=== PATIENT | male | born 1955 | race Caucasian/White ===

== ENCOUNTER 2020-07-27 12:18 | Outpatient (CLI) | payer BC, OTHER | END 2020-07-27 12:19 | disposition home or self-care (01) | LOC: COV 12:18 | PROVIDERS: ATTEND Family Medicine | DX: R05 Cough (principal); J02.9 Acute pharyngitis, unspecified; R19.7 Diarrhea, unspecified; Z20.828 Contact with and (suspected) exposure to other viral communicable diseases ==

== ENCOUNTER 2020-12-04 16:01 | Emergency (ER) | payer BC ==
[2020-12-04 17:55] LABS: BILIRUBIN,URINE NEGATIVE (NEGATIVE); GLUCOSE, URINE (UA) NEGATIVE (NEGATIVE); KETONES,URINE (UA) NEGATIVE (NEGATIVE); LEUKOCYTE ESTERASE, URINE NEGATIVE (NEGATIVE); NITRITE,URINE NEGATIVE (NEGATIVE); OCCULT BLOOD,URINE NEGATIVE (NEGATIVE); PROTEIN,URINE NEGATIVE (NEGATIVE); UROBILINOGEN,URINE 0.2 (NORMAL) E.U./dL (NORMAL)
[2020-12-04 18:03] LABS: CLARITY,URINE CLEAR (CLEAR)
[2020-12-04 18:21] LABS: BASOPHILS % (AUTO) 0.8 %; EOSINOPHILS % (AUTO) 0.2 %; HCT - HEMATOCRIT 42.6 % (42.0-52.0); HGB - HEMOGLOBIN 15.7 g/dL (14.0-18.0); LYMPHOCYTES # (AUTO) 1.6 10^3/uL (1.5-3.5); MEAN CORPUSCULAR HEMOGLOBIN 31.7 pg (27.0-31.0); MEAN CORPUSCULAR HGB CONC 36.9 g/dL (32.0-36.0); MEAN CORPUSCULAR VOLUME 85.9 fL (80.0-94.0); MEAN PLATELET VOLUME 8.5 fL (7.4-11.4); MONOCYTES # (AUTO) 0.6 10^3/uL (0.0-1.0); MONOCYTES % (AUTO) 12.2 %; NEUTROPHILS # (AUTO) 2.7 10^3/uL (1.5-6.6); PLT - PLATELET COUNT 168 10^3/uL (130-450); RED BLOOD COUNT 4.96 10^6/uL (4.70-6.10); RED CELL DISTRIBUTION WIDTH 12.9 % (12.0-15.0); WHITE BLOOD COUNT 4.9 x10^3/uL (4.8-10.8)
[2020-12-04] MEDS ORDERED: SODIUM CHLORIDE 0.9% 1,000 ML IV STA (18:30)
[2020-12-04] MEDS ORDERED: ONDANSETRON 4 MG/2 ML VIAL IVP STA (18:30)
[2020-12-04] MEDS ORDERED: chlordiazePOXIDE 25 MG CAPSULE PO STA ×2 (18:30→19:48)
[2020-12-04 18:37] LABS: ALBUMIN 3.3 g/dL (3.2-5.5); ALBUMIN/GLOBULIN RATIO 0.8 (1.0-2.2); BILIRUBIN,TOTAL 2.3 mg/dL (0.2-1.0); CALCIUM 8.5 mg/dL (8.5-10.3); CREATININE 0.7 mg/dL (0.6-1.2); POTASSIUM 3.9 mmol/L (3.5-5.0); TOTAL PROTEIN 7.2 g/dL (6.7-8.2)
--- NOTE | 2020-12-04 19:55 | ED Physician Documentation ---
History of Present Illness - Stated complaint Stated Complaint: NAUSEA, DIZZY, ALCOHOL - Chief complaint Chief Complaint: Abd Pain - History obtained from History obtained from: Patient, Family - Additonal information Additional information: Patient comes emergency department chief complaint of "I've been drinking too much". Patient states that he has a longstanding history of alcohol abuse on and off and knows he has some liver disease because of it. The patient states that he actually was able to remain dry throughout the entire month of July, but then began to drink again in August. In early October, he bought a new boat, which required quite a bit of repair to make it see where they, and patient states that he began to feel overwhelmed and stressed out because of this. He states that is when his drinking got to be quite heavy. The patient states that he has been drinking approximately 8-10 large beers in a 24-hour period on a daily basis since then. He states that he has had nausea, vomiting, and tremors for approximately last month. Last week, he decided that he ought to quit drinking, and went and was seen but at [facility] about 4 days ago. He was given prescription for Zofran and a Librium taper, but was not able to get the Librium filled. He states that he should have tried another pharmacy, as the pharmacy he gone to said they did not have the Librium in stock, but instead, he just got more beer drinking. Patient states that today, he just decided that he needed to get help. He states he thinks that he could be successful getting off alcohol again if he could have some assistance with Librium, but has also contemplated going to inpatient detox. Patient states he does have another appointment at 11:00 tomorrow with [facility]. Patient denies using any other substances. He has not been vomiting today, though he does feel nauseated. No fevers or chills. No other complaints at this time. Review of Systems Ten Systems: 10 systems reviewed and negative Constitutional: reports: Reviewed and negative Eyes: reports: Reviewed and negative Ears: reports: Reviewed and negative Nose: reports: Reviewed and negative Throat: reports: Reviewed and negative Cardiac: reports: Reviewed and negative Respiratory: reports: Reviewed and negative GI: reports: Nausea, Vomiting : reports: Reviewed and negative Skin: reports: Reviewed and negative Musculoskeletal: reports: Reviewed and negative Neurologic: reports: Other (Tremulous) Psychiatric: reports: Reviewed and negative Endocrine: reports: Reviewed and negative Immunocompromised: reports: Reviewed and negative PD PAST MEDICAL HISTORY - Past Medical History Past Medical History: Yes Endocrine/Autoimmune: Type 2 diabetes Other Past Medical History: Proctits - Past Surgical History Past Surgical History: No - Present Medications Home Medications: Ambulatory Orders Medication Instructions Recorded Confirmed Atenolol [Tenormin] 50 mg PO DAILY 12/04/20 12/04/20 Atorvastatin [Lipitor] 20 mg PO DAILY 12/04/20 12/04/20 Budesonide [Entocort EC] 3 mg PO DAILY 12/04/20 12/04/20 Colchicine 0.6 mg PO PRN PRN 12/04/20 12/04/20 Lisinopril/Hydrochlorothiazide 1 tab PO DAILY 12/04/20 12/04/20 [Zestoretic 20-12.5 mg Tablet] Mesalamine [Lialda] 1.2 gm PO DAILY 12/04/20 12/04/20 Omeprazole 20 mg PO BID 12/04/20 12/04/20 Ondansetron Odt [Zofran Odt] 4 mg PO PRN PRN 12/04/20 12/04/20 allopurinoL [Zyloprim] 100 mg PO DAILY 12/04/20 12/04/20 - Allergies Allergies/Adverse Reactions: Allergies Allergy/AdvReac Type Severity Reaction Status Date / Time No Known Drug Allergies Allergy Verified 12/04/20 16:10 - Social History Does the pt smoke?: No Smoking Status: Never smoker Does the pt drink ETOH?: Yes ETOH Use: Beer Does the pt have substance abuse?: Yes Substance Use and Type: Marijuana - Immunizations Immunizations are current?: Yes - POLST Patient has POLST: No PD ED PE NORMAL - Vitals Vital signs reviewed: Yes - General General: Alert and oriented X 3, No acute distress, Well developed/nourished - HEENT HEENT: Atraumatic, PERRL, EOMI, Moist mucous membranes - Neck Neck: Supple, no meningeal sign - Cardiac Cardiac: RRR, No murmur, Strong equal pulses - Respiratory Respiratory: No respiratory distress, Clear bilaterally - Abdomen Abdomen: Soft, Non tender, Non distended - Derm Derm: Normal color, Warm and dry, No rash - Extremities Extremities: No deformity, No edema - Neuro Neuro: Alert and oriented X 3, chief controller center 2-12 intact, No motor deficit, No sensory deficit, Normal speech, Other (No gross tremors) - Psych Psych: Normal mood, Normal affect Results - Vitals Vitals: Vital Signs - 24 hr 12/04/20 12/04/20 12/04/20 16:10 18:31 20:04 Temperature 36.5 C 36.6 C Heart Rate 77 73 73 Respiratory 16 16 12 Rate Blood Pressure 132/73 H 138/82 H 145/78 H O2 Saturation 99 99 97 Oxygen O2 Source Room air - Labs Labs: Laboratory Tests 12/04/20 12/04/20 12/04/20 17:41 18:13 18:13 WBC 4.9 RBC 4.96 Hgb 15.7 Hct 42.6 MCV 85.9 MCH 31.7 H MCHC 36.9 H RDW 12.9 Plt Count 168 MPV 8.5 Neut # (Auto) 2.7 Lymph # (Auto) 1.6 [place] # (Auto) 0.6 Eos # (Auto) 0.0 Baso # (Auto) 0.0 Absolute Nucleated RBC 0.00 Nucleated RBC % 0.0 Sodium 127 L Potassium 3.9 Chloride 91 L Carbon Dioxide 25 Anion Gap 11.0 BUN 17 Creatinine 0.7 Estimated GFR (MDRD) 114 Glucose 145 H Calcium 8.5 Total Bilirubin 2.3 H AST 300 H ALT 84 H Alkaline Phosphatase 154 H Total Protein 7.2 Albumin 3.3 Globulin 3.9 Albumin/Globulin Ratio 0.8 L Lipase 86 H Urine Color YELLOW Urine Clarity CLEAR Urine pH 6.0 Ur Specific [place] 1.010 Urine Protein NEGATIVE Urine Glucose (UA) NEGATIVE Urine Ketones NEGATIVE Urine Occult Blood NEGATIVE Urine Nitrite NEGATIVE Urine Bilirubin NEGATIVE Urine Urobilinogen 0.2 (NORMAL) Ur Leukocyte Esterase NEGATIVE Ur Microscopic Review NOT INDICATED Urine Culture Comments NOT INDICATED PD MEDICAL DECISION MAKING - ED course Complexity details: reviewed results, re-evaluated patient, considered differential, d/w patient, d/w family ED course: The patient was worked up with laboratory studies which did show some brown elevations in the patient's LFTs. He was treated symptomatically with IV fluids, Zofran, and Librium. The patient was clinically sober and did not appear to be in severe withdrawal. His vital signs were stable and he was amiable and well-appearing and in good spirits. I discussed with him that as it is evening, we do not have health social work professor here to arrange for detox for the patient. If he does not feel safe to go home, and then he could stay in the emergency department until morning when health social work professor can see him. Alternatively, the patient can take another dose of Librium at home, and he can plan to keep his appointment with [facility] tomorrow and get his Librium prescription filled at one of the [facility] pharmacies that does carry Librium. If he is feeling bad enough that he still wants to come to inpatient.detox, he can represent to the emergency department to talk to social work about going to detox. Patient's daughter is with him here in the ED and they are both agree able to the plan of going home with Librium. We have discussed the usual indications for return. Departure - Departure Disposition: 01 Home, Self Care Clinical Impression: Alcohol abuse Alcohol withdrawal Qualifiers: Complication of substance-induced condition: uncomplicated Qualified Code(s): F10.230 - Alcohol dependence with withdrawal, uncomplicated Condition: Stable Instructions: ED Withdrawal Alcohol Comments: Please take the dose of Librium between 1 and 3 AM, if you are awake. You may continue the Zofran for nausea, as well. Do not set an alarm to wake yourself up to take the Librium, in the event that you are asleepit is best that you just get your sleep and you can take the next dose of Librium when you wake up in the morning. Please take your prescription to [facility] to get it filled, so that you may continue with the Librium taper. Please also keep your 11:00 appointment with [facility]. If you feel that the plan for outpatient detox is not going to work, you may return to the emergency department to see social work and discuss inpatient treatment. Please do keep in mind that our social workers are here during daytime hours and generally are finished around 6:00 in the evening, so if possible, please come early enough to allow enough time to be evaluated and placed. Discharge Date/Time: 12/04/20 20:14
[2020-12-04 20:05] VITALS: BP 145/78
== END 2020-12-04 20:14 | disposition home or self-care (01) ==
LOC: ED 16:01
DX: F10.230 Alcohol dependence with withdrawal, uncomplicated (principal); E11.9 Type 2 diabetes mellitus without complications
CPT/HCPCS: 36415; 80053; 81003; 83690; 85025; 96374; 99283; A9270; 81001; 87086

== ENCOUNTER 2021-07-21 19:12 | Inpatient (IN) | payer MEDICARE, OTHER ==
[2021-07-21] MEDS ORDERED: LORazepam 2 MG/ML VIAL IVP STA ×2 (19:50→21:42)
[2021-07-21] MEDS ORDERED: SODIUM CHLORIDE 0.9% 1,000 ML IV STA (19:50)
--- NOTE | 2021-07-21 19:51 | ED Physician Documentation ---
PD HPI ABD PAIN - Stated complaint Stated Complaint: ETOH DETOX - Chief complaint Chief Complaint: Abd Pain - History obtained from History obtained from: Patient - Additional information Additional information: 66-year-old gentleman with history of alcoholism was doing pretty well from the perspective of alcohol recovery after doing an outpatient treatment program until about 5 weeks ago when he started drinking heavily again. He is trying to cut back over the last few days and plans to go to detox, but presents with shakiness and some visual hallucinations. No history of seizures. Review of Systems Ten Systems: 10 systems reviewed and negative Constitutional: reports: Reviewed and negative Eyes: reports: Reviewed and negative Ears: reports: Reviewed and negative Nose: reports: Reviewed and negative PD PAST MEDICAL HISTORY - Past Medical History Endocrine/Autoimmune: Type 2 diabetes - Past Surgical History Past Surgical History: No - Present Medications Home Medications: Ambulatory Orders Medication Instructions Recorded Confirmed Atenolol [Tenormin] 50 mg PO DAILY 12/04/20 12/04/20 Atorvastatin [Lipitor] 20 mg PO DAILY 12/04/20 12/04/20 Budesonide [Entocort EC] 3 mg PO DAILY 12/04/20 12/04/20 Colchicine 0.6 mg PO PRN PRN 12/04/20 12/04/20 Lisinopril/Hydrochlorothiazide 1 tab PO DAILY 12/04/20 12/04/20 [Zestoretic 20-12.5 mg Tablet] Mesalamine [Lialda] 1.2 gm PO DAILY 12/04/20 12/04/20 Omeprazole 20 mg PO BID 12/04/20 12/04/20 Ondansetron Odt [Zofran Odt] 4 mg PO PRN PRN 12/04/20 12/04/20 allopurinoL [Zyloprim] 100 mg PO DAILY 12/04/20 12/04/20 - Allergies Allergies/Adverse Reactions: Allergies Allergy/AdvReac Type Severity Reaction Status Date / Time No Known Drug Allergies Allergy Verified 07/21/21 19:38 - Social History Does the pt smoke?: No Smoking Status: Never smoker Does the pt drink ETOH?: Yes Does the pt have substance abuse?: Yes - Immunizations Immunizations are current?: Yes - POLST Patient has POLST: No PD ED PE NORMAL - Vitals Vital signs reviewed: Yes - General General: Alert and oriented X 3 (He is visibly shaky, hypertensive, and has some scleral icterus.), No acute distress - HEENT HEENT: PERRL, EOMI - Neck Neck: Supple, no meningeal sign, No bony TTP - Cardiac Cardiac: RRR, No murmur - Respiratory Respiratory: No respiratory distress, Clear bilaterally - Abdomen Abdomen: Soft, Non tender - Back Back: No CVA TTP, No spinal TTP - Derm Derm: Normal color, Warm and dry - Extremities Extremities: No edema, No calf tenderness / cord - Neuro Neuro: Alert and oriented X 3, Normal speech Results - Vitals Vitals: Vital Signs - 24 hr 07/21/21 07/21/21 07/21/21 19:30 20:30 21:00 Temperature 36.3 C L Heart Rate 87 91 91 Respiratory 28 H 28 H 26 H Rate Blood Pressure 150/70 H 146/76 H 158/89 H O2 Saturation 100 97 99 Oxygen O2 Source Room air - Labs Labs: Laboratory Tests 07/21/21 07/21/21 07/21/21 20:05 20:05 20:05 WBC 16.8 H RBC 4.79 Hgb 15.4 Hct 38.9 L MCV 81.2 MCH 32.2 H MCHC 39.6 H RDW 11.4 L Plt Count 137 MPV 8.9 Neut # (Auto) Not Reportable Lymph # (Auto) Not Reportable [place] # (Auto) Not Reportable Eos # (Auto) Not Reportable Baso # (Auto) Not Reportable Absolute Nucleated RBC Not Reportable Total Counted 100 Band Neuts % (Manual) 0 Abnorm Lymph % (Manual) 0 Nucleated RBC % Not Reportable Neutrophils # (Manual) 16.1 H Lymphocytes # (Manual) 0.5 L Monocytes # (Manual) 0.2 Eosinophils # (Manual) 0.0 Basophils # (Manual) 0.0 Differential Comment MANUAL DIFFERENTIAL Platelet Estimate NORMAL (130-450,000) Platelet Morphology NORMAL APPEARANCE RBC Morph Micro Appear NORMAL APPEARANCE PT 12.7 H INR 1.1 Sodium 106 L* Potassium 3.2 L Chloride 67 L* Carbon Dioxide 18 L Anion Gap 21.0 H BUN 12 Creatinine 0.6 Estimated GFR (MDRD) 135 Glucose 162 H Calcium 8.3 L Magnesium 1.6 L Total Bilirubin 4.1 H AST 320 H ALT 81 H Alkaline Phosphatase 141 H Total Protein 6.9 Albumin 3.6 Globulin 3.3 Albumin/Globulin Ratio 1.1 Lipase 600 H Nasal Adenovirus (PCR) Nasal B. parapertussis DNA (PCR) Nasal Coronavir 229E PCR Nasal Coronavir HKU1 PCR Nasal Coronavir NL63 PCR Nasal Coronavir OC43 PCR Nasal Enterovir/Rhinovir PCR Nasal Influenza B PCR Nasal Influenza A PCR Nasal Parainfluen 1 PCR Nasal Parainfluen 2 PCR Nasal Parainfluen 3 PCR Nasal Parainfluen 4 PCR Nasal RSV (PCR) Nasal B.pertussis DNA PCR Nasal C.pneumoniae (PCR) [place]aleb Human Metapneumo PCR Nasal M.pneumoniae (PCR) Nasal SARS-CoV-2 (PCR) Ethyl Alcohol 142.2 07/21/21 20:14 WBC RBC Hgb Hct MCV MCH MCHC RDW Plt Count MPV Neut # (Auto) Lymph # (Auto) [place] # (Auto) Eos # (Auto) Baso # (Auto) Absolute Nucleated RBC Total Counted Band Neuts % (Manual) Abnorm Lymph % (Manual) Nucleated RBC % Neutrophils # (Manual) Lymphocytes # (Manual) Monocytes # (Manual) Eosinophils # (Manual) Basophils # (Manual) Differential Comment Platelet Estimate Platelet Morphology RBC Morph Micro Appear PT INR Sodium Potassium Chloride Carbon Dioxide Anion Gap BUN Creatinine Estimated GFR (MDRD) Glucose Calcium Magnesium Total Bilirubin AST ALT Alkaline Phosphatase Total Protein Albumin Globulin Albumin/Globulin Ratio Lipase Nasal Adenovirus (PCR) NOT DETECTED Nasal B. parapertussis DNA (PCR) NOT DETECTED Nasal Coronavir 229E PCR NOT DETECTED Nasal Coronavir HKU1 PCR NOT DETECTED Nasal Coronavir NL63 PCR NOT DETECTED Nasal Coronavir OC43 PCR NOT DETECTED Nasal Enterovir/Rhinovir PCR NOT DETECTED Nasal Influenza B PCR NOT DETECTED Nasal Influenza A PCR NOT DETECTED Nasal Parainfluen 1 PCR NOT DETECTED Nasal Parainfluen 2 PCR NOT DETECTED Nasal Parainfluen 3 PCR NOT DETECTED Nasal Parainfluen 4 PCR NOT DETECTED Nasal RSV (PCR) NOT DETECTED Nasal B.pertussis DNA PCR NOT DETECTED Nasal C.pneumoniae (PCR) NOT DETECTED [place] Human Metapneumo PCR NOT DETECTED Nasal M.pneumoniae (PCR) NOT DETECTED Nasal SARS-CoV-2 (PCR) NOT DETECTED Ethyl Alcohol PD MEDICAL DECISION MAKING - ED course ED course: 66-year-old gentleman presents requesting clearance exam for alcohol detox and he appears to be in at least moderate alcohol withdrawal. Work-up in the emergency department demonstrates profound hyponatremia, moderate elevation of liver enzymes. He was treated with IV fluids and because of the profound hyponatremia also got a small dose of hypertonic saline. Given the profundity of his labs spoke with Dr. Ferro for admission at 9:45 PM for ICU admit. I also was able to update his family by phone. 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 Meld-NA 23 points giving him an estimated 15% short-term mortality 4.1 points Discriminant factor 4.1 points so not needing corticosteroid therapy for alcoholic hepatitis. - Critical Care Time(min): 45 Time Includes: Direct patient care, Review records, Reassess patient, Document care, Coordinate care, Medical consult, Family consult for tx dec Data interpretation: Labs, Pulse ox Procedures included in critical care time: Peripheral IV Departure - Departure Disposition: 66 [facility] DC/Xfer Clinical Impression: Hyponatremia Alcohol intoxication Qualifiers: Complication of substance-induced condition: uncomplicated Qualified Code(s): F10.920 - Alcohol use, unspecified with intoxication, uncomplicated Alcohol withdrawal Qualifiers: Complication of substance-induced condition: with delirium Qualified Code(s): F10.231 - Alcohol dependence with withdrawal delirium Pancreatitis Qualifiers: Chronicity: acute Pancreatitis type: alcohol induced Acute pancreatitis complication: unspecified Qualified Code(s): K85.20 - Alcohol induced acute pancreatitis without necrosis or infection Alcoholic hepatitis Qualifiers: Ascites presence: without ascites Qualified Code(s): K70.10 - Alcoholic hepatitis without ascites
[2021-07-21 20:18] LABS: INR 1.1 (0.8-1.2); PT - PROTHROMBIN TIME 12.7 secs (9.9-12.6)
[2021-07-21 20:49] LABS: ALBUMIN 3.6 g/dL (3.2-5.5); ALBUMIN/GLOBULIN RATIO 1.1 (1.0-2.2); BILIRUBIN,TOTAL 4.1 mg/dL (0.2-1.0); CALCIUM 8.3 mg/dL (8.5-10.3); CREATININE 0.6 mg/dL (0.6-1.2); ETOH - ETHANOL 142.2 mg/dL; MAGNESIUM 1.6 mg/dL (1.7-2.8); POTASSIUM 3.2 mmol/L (3.5-5.0); TOTAL PROTEIN 6.9 g/dL (6.7-8.2)
[2021-07-21] MEDS ORDERED: SODIUM CHLORIDE 3% HYPERTONIC 500 ML IV SCH (21:00)
[2021-07-21 21:07] LABS: BASOPHILS % (AUTO) 0.2 %; HCT - HEMATOCRIT 38.9 % (42.0-52.0); HGB - HEMOGLOBIN 15.4 g/dL (14.0-18.0); LYMPHOCYTES % (AUTO) 2.9 %; MEAN CORPUSCULAR HEMOGLOBIN 32.2 pg (27.0-31.0); MEAN CORPUSCULAR HGB CONC 39.6 g/dL (32.0-36.0); MEAN CORPUSCULAR VOLUME 81.2 fL (80.0-94.0); MEAN PLATELET VOLUME 8.9 fL (7.4-11.4); MONOCYTES % (AUTO) 7.2 %; NEUTROPHILS % (AUTO) 88.9 %; PLT - PLATELET COUNT 137 10^3/uL (130-450); RED BLOOD COUNT 4.79 10^6/uL (4.70-6.10); RED CELL DISTRIBUTION WIDTH 11.4 % (12.0-15.0); WHITE BLOOD COUNT 16.8 x10^3/uL (4.8-10.8)
[2021-07-21 21:23] LABS: PLATELET ESTIMATE, MANUAL NORMAL (130-450,000) (NORMAL); PLATELET MORPHOLOGY NORMAL APPEARANCE (NORMAL); RBC MORPHOLOGY (MULTIPLE) NORMAL APPEARANCE (NORMAL)
[2021-07-21 21:24] LABS: ABNORMAL LYMPHS % (MANUAL) 0 %; BAND NEUTROPHILS % (MANUAL) 0 %
[2021-07-21 21:25] LABS: DIFFERENTIAL COMMENT MANUAL DIFFERENTIAL; LYMPHOCYTES # (MANUAL) 0.5 10^3/uL (1.5-3.5); LYMPHOCYTES % (MANUAL) 3 %; MONOCYTES # (MANUAL) 0.2 10^3/uL (0.0-1.0); NEUTROPHILS # (MANUAL) 16.1 10^3/uL (1.5-6.6)
[2021-07-21 21:28] LABS: B. PARAPERTUSSIS- RESP PCR PAN NOT DETECTED; B. PERTUSSIS- RESP PCR PANEL NOT DETECTED; C. PNEUMONIAE- RESP PCR PANEL NOT DETECTED; CORONAVIRUS 229E-RESP PCR NOT DETECTED; CORONAVIRUS HKU1-RESP PCR NOT DETECTED; CORONAVIRUS NL63-RESP PCR NOT DETECTED; CORONAVIRUS OC43-RESP PCR NOT DETECTED; HUMAN METAPNEUMOVIRUS NOT DETECTED; INFLUENZA A- RESP PCR PANEL NOT DETECTED; INFLUENZA B - RESP PCR PANEL NOT DETECTED; M. PNEUMONIAE- RESP PCR PANEL NOT DETECTED; PARAINFLUENZA VIRUS 1 NOT DETECTED; PARAINFLUENZA VIRUS 2 NOT DETECTED; PARAINFLUENZA VIRUS 3 NOT DETECTED; PARAINFLUENZA VIRUS 4 NOT DETECTED; RHINOVIRUS/ENTEROVIRUS NOT DETECTED; RSV- RESP PCR PANEL NOT DETECTED; SARS-CoV-2 -RESP PCR PANEL NOT DETECTED
[2021-07-21] MEDS ORDERED: ONDANSETRON 4 MG/2 ML VIAL IVP PRN (21:58)
[2021-07-21] MEDS ORDERED: CALCIUM CARBONATE CHEW 500 MG TABLET PO STA (22:05)
[2021-07-21] MEDS ORDERED: DEXMEDETOMIDINE 400 MCG/100 ML 100 ML IV PRN (22:08)
[2021-07-21] MEDS ORDERED: MAGNESIUM SULFATE 2 GRAM 2 GM/50 ML BAG IV ONE (22:12)
--- NOTE | 2021-07-21 22:12 | HISTORY & PHYSICAL EXAMINATION ---
Chief Complaint - Chief Complaint Chief Complaint: alcohol withdrawal History of Present Illness - Admitted From Admitted From:: [facility] ED - History Obtained From Records Reviewed: yes History obtained from: patient - History of Present Illness HPI Comment/Other: Patient is a 66-year-old male with medical history significant for hypertension, GERD, diabetes mellitus not on any medication, proctitis and alcoholism who presented to the ED because he was in need of prescreening prior to going to an inpatient rehabitation facility. He is trying to get into what come inpatient rehab. In the cause of work-up today he had a CBC and CMP done which showed a sodium level of 106 and a chloride level of 67. He also had a lipase level of 600, total bilirubin 4.1, potassium 3.2 and mildly elevated AST/ALT at 320/81. He was mildly tremulous in the ED. As a result of this critical lab findings and his clinical presentation he was presented for admission for further treatment. The patient drinks about six 16-ounce cans of beer daily. He also drinks about 1/5 of vodka every 2 days.He last drank around 1 PM on 07/21/2021. Alcohol level at presentation to the ED was 142.2. Despite this he was still tremulous. He reports experiencing the shakes related to alcohol how are you in the past and offered however he is never experienced seizures as a result of alcohol withdrawal. He has undergone outpatient rehab before in November 2020. At bedside he denies chest pain, dyspnea, fever or chills. He reports mild abdominal pain in the epigastric area. He reported feeling nauseous and rare and self-induced vomiting in an attempt to get some relief. History - Past Medical History Cardiovascular: reports: Hypertension, High cholesterol Endocrine/Autoimmune: reports: Type 2 diabetes GI: reports: GERD, Other (Proctitis) Musculoskeletal: reports: Gout MRSA Hx?: No Other Past Medical History: alcohol dependence - Past Surgical History Other past surgical history: Carpal Tunnel Surgery (left wrist) - Family & Social History Family History Comment/Other: His father had severe depression. Social History Notes: He lives at home with his . He is independent of activities of daily living. 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 He smoked about 1 pack of cigarettes daily for 30 years. Quit in 1991. Denies recreational substance use. He drinks about 1/5 of vodka every 2 days and six 16 ounce cans of beer daily. He does not use any recreational substances. - POLST Patient has POLST: No POLST Status: Full Code Meds/Allgy - Home Medications Home Medications: Ambulatory Orders Medication Instructions Recorded Confirmed Atenolol [Tenormin] 50 mg PO DAILY 12/04/20 12/04/20 Atorvastatin [Lipitor] 20 mg PO DAILY 12/04/20 12/04/20 Budesonide [Entocort EC] 3 mg PO DAILY 12/04/20 12/04/20 Colchicine 0.6 mg PO PRN PRN 12/04/20 12/04/20 Lisinopril/Hydrochlorothiazide 1 tab PO DAILY 12/04/20 12/04/20 [Zestoretic 20-12.5 mg Tablet] Mesalamine [Lialda] 1.2 gm PO DAILY 12/04/20 12/04/20 Omeprazole 20 mg PO BID 12/04/20 12/04/20 Ondansetron Odt [Zofran Odt] 4 mg PO PRN PRN 12/04/20 12/04/20 allopurinoL [Zyloprim] 100 mg PO DAILY 12/04/20 12/04/20 - Allergies Allergies/Adverse Reactions: Allergies Allergy/AdvReac Type Severity Reaction Status Date / Time No Known Drug Allergies Allergy Verified 07/21/21 19:38 Review of Systems - Constitutional Constitutional: denies: Fatigue, Fever, Chills - Eyes Eyes: denies: Pain, Vision loss, Dipolpia - Ears, Nose & Throat Ears, Nose & Throat: denies: Ear pain, Sore throat - Cardiovascular Cariovascular: reports: Palpitations. denies: Irregular heart rate, Chest pain, Edema, Lightheadedness, Syncope, Exertional dyspnea - Respiratory Respiratory: denies: Cough, Sputum production, Wheezing, SOB at rest, SOB with exertion - Gastrointestinal Gastrointestinal: reports: Abdominal pain, Abdominal distention, Nausea, Vomiting, Reflux/heartburn. denies: Constipation, Diarrhea, Black stools, Bloody stools, Coffee grounds emesis - Genitourinary Genitourinary: denies: Dysuria, Frequency, Urgency, Hematuria - Musculoskeletal Musculoskeletal: denies: Muscle pain, Back pain, Muscle aches - Integumentary Integumentary: denies: Rash, Pruritis, Lesions - Neurological Neurological: reports: Other (tremulous). denies: General weakness, Focal weakness - Psychiatric Psychiatric: denies: Depression, Anxiety - Endocrine Endocrine: denies: Polyuria, Polydypsia - Hematologic/Lymphatic Hematologic/Lymphatic: denies: Anemia, Bruising, Petechiae Prior Level of Functionality: He is independent of activities of daily living. Exam - Vital Signs Vital Signs: Vital Signs x48h Temp Pulse Resp BP Pulse Ox 07/21/21 21:00 91 26 H 158/89 H 99 07/21/21 20:30 91 28 H 146/76 H 97 07/21/21 19:30 36.3 C L 87 28 H 150/70 H 100 - Physical Exam General Appearance: positive: Alert, Mild distress (epigastric abdominal), Other (Tremulous) Eyes Bilateral: positive: PERRL, EOMI ENT: positive: Dry mucous membranes Neck: positive: No JVD, Trachea midline Respiratory: positive: Chest non-tender, No respiratory distress, Breath sounds nml. negative: Wheezes, Rales, Rhonchi Cardiovascular: positive: Regular rate & rhythm, No murmur Abdomen: positive: Tenderness (Mild tenderness). negative: Guarding, Rebound Back: positive: Nml inspection Skin: positive: No rash, Warm, Dry, Other (flushed skin) Extremities: positive: Non-tender, Full ROM, Nml appearance, No pedal edema Neurologic/Psychiatric: positive: Oriented x3, Mood/affect nml, Other (tremulous) Conclusion/Plan - Problem List (1) Hyponatremia Conclusion/Plan: Suspect secondary to alcohol abuse. Patient sodium level at presentation was 106. Patient was initially given a bolus of normal saline and then 50 mL of hypertonic saline. Recheck of sodium was 103. We will continue hypertonic saline at 15 mL/h. Recheck BMP every 4 hours to monitor sodium level. Goal is not to increase sodium more than eight points in a 24-hour.. (2) Alcohol withdrawal Conclusion/Plan: Patient last drank alcohol around 1 PM on 07/21/2021. Despite a blood alcohol level of 142.2 the patient is tremulous, exhibiting signs of withdrawal. CIWA protocol initiated. Precedex drip initiated. Will titrate to effect. Qualifiers: Complication of substance-induced condition: with delirium Qualified Code(s): F10.231 - Alcohol dependence with withdrawal delirium (3) Alcohol intoxication Conclusion/Plan: Blood alcohol level was 142.2. CIWA protocol initiated. Patient is on Precedex drip. We will titrate to effect. Correcting magnesium, thiamine ordered. Social work consulted. Patient is attempting to get into what come inpatient rehab. Qualifiers: Complication of substance-induced condition: uncomplicated Qualified Code(s): F10.920 - Alcohol use, unspecified with intoxication, uncomplicated (4) Elevated liver enzymes Conclusion/Plan: Likely secondary to alcohol abuse. AST/ALT/alk phos was 320/81/141. Repeat after IV hydration was 290/77/147. T bili 4.1 with recheck of 3.5. Will continue to monitor daily. (5) Hypokalemia Conclusion/Plan: Potassium was 3.2 with a repeat of 2.9. 40 mEq of potassium chloride has been ordered to be administered over 4 hours. Patient's magnesium was 1.6. Magnesium sulfate 2 g IV x2 ordered. (6) Leukocytosis Conclusion/Plan: Reactive versus infectious. Possibly secondary to pancreatitis. Will monitor and recheck with a.m. labs. If significantly elevated will obtain blood cultures and consider antibiotics. CT Abdomen/pelvis ordered for the morning. (7) Pancreatitis Conclusion/Plan: Likely secondary to alcohol abuse. Lipase level was 600. CT of the abdomen pelvis with contrast ordered for the morning. We will trend lipase daily. Qualifiers: Chronicity: acute Pancreatitis type: alcohol induced Acute pancreatitis complication: unspecified Qualified Code(s): K85.20 - Alcohol induced acute pa ncreatitis without necrosis or infection (8) Gout Conclusion/Plan: We will continue patient's allopurinol 100 mg p.o. daily. We will hold colchicine. (9) Hypertension Conclusion/Plan: Will resume patient's atenolol 50 mg p.o. daily once verified. We will hold lisinopril and hydrochlorothiazide for now. Hydralazine 10 mg IV every 6 hours as needed for systolic blood pressure greater than 160. (10) GERD (gastroesophageal reflux disease) Conclusion/Plan: Protonix 40 mg p.o. daily AC. - Lab Results Fish Bones: 07/21/21 22:24 07/21/21 22:24 Core Measures - Anticipated LOS I expect patient to be DC'd or transferred within 96 hours.: Yes - DVT/VTE - Prophylaxis VTE/DVT Device ordered at admit?: Yes
[2021-07-21 22:44] LABS: ALBUMIN 3.1 g/dL (3.2-5.5); BILIRUBIN,TOTAL 3.5 mg/dL (0.2-1.0); CALCIUM 7.8 mg/dL (8.5-10.3); CREATININE 0.5 mg/dL (0.6-1.2); POTASSIUM 2.9 mmol/L (3.5-5.0); TOTAL PROTEIN 6.3 g/dL (6.7-8.2)
[2021-07-21] MEDS: SODIUM CHLORIDE 3% HYPERTONIC 500 ML IV SCH ×2 (23:15→23:26)
[2021-07-22] MEDS ORDERED: MAGNESIUM SULFATE 2 GRAM 2 GM/50 ML BAG IV ONE (00:22)
[2021-07-22 00:26] LABS: BASOPHILS % (AUTO) 0.2 %; EOSINOPHILS % (AUTO) 0.4 %; HCT - HEMATOCRIT 36.4 % (42.0-52.0); HGB - HEMOGLOBIN 14.1 g/dL (14.0-18.0); LYMPHOCYTES % (AUTO) 2.9 %; MEAN CORPUSCULAR HEMOGLOBIN 31.8 pg (27.0-31.0); MEAN CORPUSCULAR HGB CONC 38.7 g/dL (32.0-36.0); MEAN CORPUSCULAR VOLUME 82.2 fL (80.0-94.0); MEAN PLATELET VOLUME 8.8 fL (7.4-11.4); MONOCYTES % (AUTO) 6.1 %; NEUTROPHILS % (AUTO) 89.7 %; PLT - PLATELET COUNT 108 10^3/uL (130-450); RED BLOOD COUNT 4.43 10^6/uL (4.70-6.10); RED CELL DISTRIBUTION WIDTH 11.6 % (12.0-15.0); WHITE BLOOD COUNT 15.1 x10^3/uL (4.8-10.8)
[2021-07-22 00:28] LABS: ABNORMAL LYMPHS % (MANUAL) 0 %; BAND NEUTROPHILS % (MANUAL) 0 %
[2021-07-22] MEDS: LORazepam 2 MG/ML VIAL IVP PRN ×4 (00:34→22:21)
[2021-07-22 00:39] LABS: DIFFERENTIAL COMMENT MANUAL DIFFERENTIAL; LYMPHOCYTES # (MANUAL) 0.5 10^3/uL (1.5-3.5); LYMPHOCYTES % (MANUAL) 3 %; MONOCYTES # (MANUAL) 1.1 10^3/uL (0.0-1.0); NEUTROPHILS # (MANUAL) 13.6 10^3/uL (1.5-6.6); PLATELET ESTIMATE, MANUAL DECREASED (<130,000) (NORMAL); PLATELET MORPHOLOGY NORMAL APPEARANCE (NORMAL); RBC MORPHOLOGY (MULTIPLE) NORMAL APPEARANCE (NORMAL); WBC MORPHOLOGY (MULTIPLE) NORMAL APPEARANCE (NORMAL)
[2021-07-22] MEDS: CALCIUM CARBONATE CHEW 500 MG TABLET PO PRN (01:44)
[2021-07-22] MEDS: SODIUM CHLORIDE FLUSH 0.9% 10 ML SYRINGE IVP SCH ×5 (01:45→22:56)
[2021-07-22 02:00] LABS: MUDS CUTOFF CONCENTRATIONS CUTOFF CONC BELOW:
[2021-07-22 02:10] LABS: AMPHETAMINE SCREEN,URINE NEGATIVE (NEGATIVE); COCAINE SCREEN URINE NEGATIVE (NEGATIVE); METHAMPHETAMINES SCREEN, URINE NEGATIVE (NEGATIVE); OPIATE SCREEN, URINE NEGATIVE (NEGATIVE); THC CANNABINOID SCREEN, URINE NEGATIVE (NEGATIVE)
[2021-07-22 02:11] LABS: BARBITURATE SCREEN,UR NEGATIVE (NEGATIVE); BENZODIAZEPINES SCREEN, URINE POSITIVE (NEGATIVE); METHADONE SCREEN, URINE NEGATIVE (NEGATIVE); OXYCODONE SCREEN, URINE NEGATIVE (NEGATIVE); PROPOXYPHENE SCREEN, URINE NEGATIVE (NEGATIVE); TRICYCLIC ANTIDEPRESSANT,URINE NEGATIVE (NEGATIVE)
[2021-07-22] MEDS: POTASSIUM CHLOR 10 MEQ/100 ML 10 MEQ/100 ML BAG IV SCH ×4 (02:12→08:06)
[2021-07-22 03:29] LABS: CALCIUM 7.9 mg/dL (8.5-10.3); CREATININE 0.5 mg/dL (0.6-1.2); MAGNESIUM 2.5 mg/dL (1.7-2.8); PHOSPHORUS 2.7 mg/dL (2.5-4.6); POTASSIUM 3.2 mmol/L (3.5-5.0)
[2021-07-22] MEDS: PANTOPRAZOLE 40 MG VIAL IVP SCH (06:30)
[2021-07-22] MEDS ORDERED: IOPAMIDOL-300 100 ML VIAL ONE (07:20)
[2021-07-22 07:32] LABS: BASOPHILS % (AUTO) 0.2 %; WHITE BLOOD COUNT 12.3 x10^3/uL (4.8-10.8)
[2021-07-22 07:40] LABS: EOSINOPHILS % (AUTO) 0.3 %; HCT - HEMATOCRIT 34.6 % (42.0-52.0); HGB - HEMOGLOBIN 13.8 g/dL (14.0-18.0); LYMPHOCYTES # (AUTO) 0.5 10^3/uL (1.5-3.5); LYMPHOCYTES % (AUTO) 4.3 %; MEAN CORPUSCULAR HEMOGLOBIN 32.7 pg (27.0-31.0); MEAN PLATELET VOLUME 9.3 fL (7.4-11.4); MONOCYTES # (AUTO) 0.8 10^3/uL (0.0-1.0); MONOCYTES % (AUTO) 6.3 %; NEUTROPHILS # (AUTO) 10.8 10^3/uL (1.5-6.6); NEUTROPHILS % (AUTO) 87.8 %; RED BLOOD COUNT 4.22 10^6/uL (4.70-6.10); RED CELL DISTRIBUTION WIDTH 11.6 % (12.0-15.0)
[2021-07-22 07:46] LABS: MEAN CORPUSCULAR HGB CONC 39.7 g/dL (32.0-36.0); PLT - PLATELET COUNT 98 10^3/uL (130-450)
[2021-07-22 07:47] LABS: SLIDE REVIEW? Indicated
--- NOTE | 2021-07-22 07:59 | PROVIDER PROGRESS NOTE ---
Subjective - Prog Note Date Prog Note Date: 07/22/21 - Subjective Subjective: He denies any abdominal pain. He reports just feeling sleepy. He tells me he has not been eating or drinking very well prior to admission except for the alcohol consumption. Current Medications - Current Medications Current Medications: Active Medications Allopurinol (Allopurinol 100 Mg Tablet) 100 mg PO DAILY [facility] Atenolol (Atenolol 25 Mg Tablet) 50 mg PO DAILY [facility] Calcium Carbonate/Glycine (Calcium Carbonate Chew 500 Mg Tablet) 500 mg PO TID PRN PRN Reason: Heartburn Last Admin: 07/22/21 01:44 Dose: 500 mg Documented by: Chlordiazepoxide HCl (Chlordiazepoxide 25 Mg Capsule) 25 mg PO Q6HR [facility] Sodium Chloride (Sodium Chloride 3% Hypertonic) 500 mls @ 15 mls/hr IV .[id number] PANTREA Stop: 07/23/21 07:23 Last Admin: 07/21/21 23:26 Dose: 15 mls/hr Documented by: Dexmedetomidine/Sodium Chloride (Precedex Premix) 100 mls @ 4.649 mls/hr IV .[id number] PRN; Protocol PRN Reason: Alcohol Withdrawal Last Titration: 07/22/21 05:27 Dose: 0.6 mcg/kg/hr, 13.948 mls/hr Documented by: Lorazepam (Lorazepam 2 Mg/Ml Vial) 1 mg IVP Q30M PRN; Protocol PRN Reason: CIWA >8 Last Admin: 07/22/21 01:44 Dose: 1 mg Documented by: Ondansetron HCl (Ondansetron 4 Mg/2 Ml Vial) 4 mg IVP Q6HR PRN PRN Reason: Nausea / Vomiting Pantoprazole Sodium (Pantoprazole 40 Mg Vial) 40 mg IVP QDAC [facility] Last Admin: 07/22/21 06:30 Dose: 40 mg Documented by: Sodium Chloride (Sodium Chloride Flush 0.9% 10 Ml Syringe) 10 ml IVP 0100,0900,1700 [facility] Last Admin: 07/22/21 01:45 Dose: 10 ml Documented by: Sodium Chloride (Sodium Chloride Flush 0.9% 10 Ml Syringe) 10 ml IVP PRN PRN PRN Reason: NEEDED PER PROVIDER ORDERS Thiamine HCl (Thiamine 100 Mg Tablet) 100 mg PO DAILY [facility] Atenolol [Tenormin] 50 mg PO DAILY 12/04/20 Atorvastatin [Lipitor] 20 mg PO DAILY 12/04/20 Budesonide [Entocort EC] 3 mg PO DAILY 12/04/20 Colchicine 0.6 mg PO PRN PRN 12/04/20 Lisinopril/Hydrochlorothiazide [Zestoretic 20-12.5 mg Tablet] 1 tab PO DAILY 12/04/20 Mesalamine [Lialda] 1.2 gm PO DAILY 12/04/20 Omeprazole 20 mg PO BID 12/04/20 Ondansetron Odt [Zofran Odt] 4 mg PO PRN PRN 12/04/20 allopurinoL [Zyloprim] 100 mg PO DAILY 12/04/20 Objective - Vital Signs/Intake & Output Reviewed Vital Signs: Yes Vital Signs: Vital Signs Pulse Resp BP Pulse Ox 07/22/21 06:45 75 20 89/70 L 95 07/22/21 06:00 79 20 118/71 96 07/22/21 05:00 84 25 H 119/67 96 07/22/21 04:00 87 21 126/81 H 96 Intake & Output: Intake & Output 07/19/21 07/20/21 07/21/21 07/22/21 23:59 23:59 23:59 23:59 Intake Total 1152.75 1484.948 Output Total 750 Balance 1152.75 734.948 - Objective General Appearance: positive: Lethargic (He is lethargic but will wake up when spoken to but will quickly go back to sleep) Eyes Bilateral: positive: Normal inspection, PERRL, Conjunctivae nml ENT: positive: ENT inspection nml Neck: positive: Nml inspection Respiratory: positive: No respiratory distress. negative: Wheezes, Rales Cardiovascular: positive: Regular rate & rhythm. negative: Tachycardia, Systolic murmur Abdomen: positive: Non-tender. negative: No distention (Mild distention), Tenderness, Guarding, Rebound Skin: positive: Warm, Dry Extremities: positive: No pedal edema Neurologic/Psychiatric: positive: Other (No obvious focal deficits. He is moving all 4 extremities. He is not tremulous.). negative: Disoriented to person, Disoriented to place - Lab Results Fish Bones: 07/22/21 07:21 07/22/21 07:21 Other Labs: Lab Results x24hrs 07/22/21 07/22/21 07/22/21 Range/Units 07:21 07:21 03:09 WBC 12.3 H (4.8-10.8) x10^3/uL RBC 4.22 L (4.70-6.10) 10^6/uL Hgb 13.8 L (14.0-18.0) g/dL Hct 34.6 L (42.0-52.0) % MCV 82.0 (80.0-94.0) fL MCH 32.7 H (27.0-31.0) pg MCHC 39.7 H (32.0-36.0) g/dL RDW 11.6 L (12.0-15.0) % Plt Count 98 L (130-450) 10^3/uL MPV 9.3 (7.4-11.4) fL Neut # (Auto) 10.8 H Lymph # (Auto) 0.5 L [place] # (Auto) 0.8 Eos # (Auto) 0.0 Baso # (Auto) 0.0 Absolute Nucleated RBC 0.00 Total Counted Band Neuts % (Manual) (0 - 10) % Abnorm Lymph % (Manual) % Nucleated RBC % 0.0 Neutrophils # (Manual) (1.5-6.6) 10^3/uL Lymphocytes # (Manual) (1.5-3.5) 10^3/uL Monocytes # (Manual) (0.0-1.0) 10^3/uL Eosinophils # (Manual) (0-0.7) 10^3/uL Basophils # (Manual) (0-0.1) 10^3/uL Differential Comment Manual Slide Review Indicated WBC Morphology (NORMAL) Platelet Estimate (NORMAL) Platelet Morphology (NORMAL) RBC Morph Micro Appear (NORMAL) PT (9.9-12.6) secs INR (0.8-1.2) Sodium (135-145) mmol/L Potassium (3.5-5.0) mmol/L Chloride (101-111) mmol/L Carbon Dioxide (21-32) mmol/L Anion Gap (6-13) BUN (6-20) mg/dL Creatinine (0.6-1.2) mg/dL Estimated GFR (MDRD) (>89) Glucose (70-100) mg/dL Lactic Acid 1.5 2.3 H (0.5-2.2) mmol/L Calcium (8.5-10.3) mg/dL Phosphorus (2.5-4.6) mg/dL Magnesium (1.7-2.8) mg/dL Total Bilirubin (0.2-1.0) mg/dL AST (10-42) IU/L ALT (10-60) IU/L Alkaline Phosphatase (42-121) IU/L Total Protein (6.7-8.2) g/dL Albumin (3.2-5.5) g/dL Globulin (2.1-4.2) g/dL Albumin/Globulin Ratio (1.0-2.2) Lipase (22-51) U/L Nasal Adenovirus (PCR) Nasal B. parapertussis DNA (PCR) Nasal Coronavir 229E PCR Nasal Coronavir HKU1 PCR Nasal Coronavir NL63 PCR Nasal Coronavir OC43 PCR Nasal Enterovir/Rhinovir PCR Nasal Influenza B PCR Nasal Influenza A PCR Nasal Parainfluen 1 PCR Nasal Parainfluen 2 PCR Nasal Parainfluen 3 PCR Nasal Parainfluen 4 PCR Nasal RSV (PCR) Nasal Screen MRSA (PCR) (NEGATIVE) Nasal B.pertussis DNA PCR Nasal C.pneumoniae (PCR) Caleb Human Metapneumo PCR Nasal M.pneumoniae (PCR) Nasal SARS-CoV-2 (PCR) Urine Opiates Screen (NEGATIVE) Ur Oxycodone Screen (NEGATIVE) Urine Methadone Screen (NEGATIVE) Ur Propoxyphene Screen (NEGATIVE) Ur Barbiturates Screen (NEGATIVE) Ur Tricyclics Screen (NEGATIVE) Ur Phencyclidine Scrn (NEGATIVE) Ur Amphetamine Screen (NEGATIVE) U Methamphetamines Scrn (NEGATIVE) U Benzodiazepines Scrn (NEGATIVE) Urine Cocaine Screen (NEGATIVE) U Cannabinoids Screen (NEGATIVE) Ethyl Alcohol mg/dL 07/22/21 07/22/21 07/21/21 Range/Units 03:09 01:30 23:25 WBC (4.8-10.8) x10^3/uL RBC (4.70-6.10) 10^6/uL Hgb (14.0-18.0) g/dL Hct (42.0-52.0) % MCV (80.0-94.0) fL MCH (27.0-31.0) pg MCHC (32.0-36.0) g/dL RDW (12.0-15.0) % Plt Count (130-450) 10^3/uL MPV (7.4-11.4) fL Neut # (Auto) Lymph # (Auto) [place] # (Auto) Eos # (Auto) Baso # (Auto) Absolute Nucleated RBC Total Counted Band Neuts % (Manual) (0 - 10) % Abnorm Lymph % (Manual) % Nucleated RBC % Neutrophils # (Manual) (1.5-6.6) 10^3/uL Lymphocytes # (Manual) (1.5-3.5) 10^3/uL Monocytes # (Manual) (0.0-1.0) 10^3/uL Eosinophils # (Manual) (0-0.7) 10^3/uL Basophils # (Manual) (0-0.1) 10^3/uL Differential Comment Manual Slide Review WBC Morphology (NORMAL) Platelet Estimate (NORMAL) Platelet Morphology (NORMAL) RBC Morph Micro Appear (NORMAL) PT (9.9-12.6) secs INR (0.8-1.2) Sodium 103 L* (135-145) mmol/L Potassium 3.2 L (3.5-5.0) mmol/L Chloride 70 L* (101-111) mmol/L Carbon Dioxide 22 (21-32) mmol/L Anion Gap 11.0 (6-13) BUN 10 (6-20) mg/dL Creatinine 0.5 L (0.6-1.2) mg/dL Estimated GFR (MDRD) 167 (>89) Glucose 152 H (70-100) mg/dL Lactic Acid (0.5-2.2) mmol/L Calcium 7.9 L (8.5-10.3) mg/dL Phosphorus 2.7 (2.5-4.6) mg/dL Magnesium 2.5 (1.7-2.8) mg/dL Total Bilirubin (0.2-1.0) mg/dL AST (10-42) IU/L ALT (10-60) IU/L Alkaline Phosphatase (42-121) IU/L Total Protein (6.7-8.2) g/dL Albumin (3.2-5.5) g/dL Globulin (2.1-4.2) g/dL Albumin/Globulin Ratio (1.0-2.2) Lipase (22-51) U/L Nasal Adenovirus (PCR) Nasal B. parapertussis DNA (PCR) Nasal Coronavir 229E PCR Nasal Coronavir HKU1 PCR Nasal Coronavir NL63 PCR Nasal Coronavir OC43 PCR Nasal Enterovir/Rhinovir PCR Nasal Influenza B PCR Nasal Influenza A PCR Nasal Parainfluen 1 PCR Nasal Parainfluen 2 PCR Nasal Parainfluen 3 PCR Nasal Parainfluen 4 PCR Nasal RSV (PCR) Nasal Screen MRSA (PCR) NEGATIVE (NEGATIVE) Nasal B.pertussis DNA PCR Nasal C.pneumoniae (PCR) Caleb Human Metapneumo PCR Nasal M.pneumoniae (PCR) Nasal SARS-CoV-2 (PCR) Urine Opiates Screen NEGATIVE (NEGATIVE) Ur Oxycodone Screen NEGATIVE (NEGATIVE) Urine Methadone Screen NEGATIVE (NEGATIVE) Ur Propoxyphene Screen NEGATIVE (NEGATIVE) Ur Barbiturates Screen NEGATIVE (NEGATIVE) Ur Tricyclics Screen NEGATIVE (NEGATIVE) Ur Phencyclidine Scrn NEGATIVE (NEGATIVE) Ur Amphetamine Screen NEGATIVE (NEGATIVE) U Methamphetamines Scrn NEGATIVE (NEGATIVE) U Benzodiazepines Scrn POSITIVE H (NEGATIVE) Urine Cocaine Screen NEGATIVE (NEGATIVE) U Cannabinoids Screen NEGATIVE (NEGATIVE) Ethyl Alcohol mg/dL 07/21/21 07/21/21 07/21/21 Range/Units 22:24 22:24 20:14 WBC 15.1 H (4.8-10.8) x10^3/uL RBC 4.43 L (4.70-6.10) 10^6/uL Hgb 14.1 (14.0-18.0) g/dL Hct 36.4 L (42.0-52.0) % MCV 82.2 (80.0-94.0) fL MCH 31.8 H (27.0-31.0) pg MCHC 38.7 H (32.0-36.0) g/dL RDW 11.6 L (12.0-15.0) % Plt Count 108 L (130-450) 10^3/uL MPV 8.8 (7.4-11.4) fL Neut # (Auto) Not Reportable Lymph # (Auto) Not Reportable [place] # (Auto) Not Reportable Eos # (Auto) Not Reportable Baso # (Auto) Not Reportable Absolute Nucleated RBC Not Reportable Total Counted 100 Band Neuts % (Manual) 0 (0 - 10) % Abnorm Lymph % (Manual) 0 % Nucleated RBC % Not Reportable Neutrophils # (Manual) 13.6 H (1.5-6.6) 10^3/uL Lymphocytes # (Manual) 0.5 L (1.5-3.5) 10^3/uL Monocytes # (Manual) 1.1 H (0.0-1.0) 10^3/uL Eosinophils # (Manual) 0.0 (0-0.7) 10^3/uL Basophils # (Manual) 0.0 (0-0.1) 10^3/uL Differential Comment MANUAL DIFFERENTIAL Manual Slide Review WBC Morphology NORMAL APPEARANCE (NORMAL) Platelet Estimate DECREASED (<130,000) (NORMAL) Platelet Morphology NORMAL APPEARANCE (NORMAL) RBC Morph Micro Appear NORMAL APPEARANCE (NORMAL) PT (9.9-12.6) secs INR (0.8-1.2) Sodium 103 L* (135-145) mmol/L Potassium 2.9 L (3.5-5.0) mmol/L Chloride 70 L* (101-111) mmol/L Carbon Dioxide 18 L (21-32) mmol/L Anion Gap 15.0 H (6-13) BUN 11 (6-20) mg/dL Creatinine 0.5 L (0.6-1.2) mg/dL Estimated GFR (MDRD) 167 (>89) Glucose 146 H (70-100) mg/dL Lactic Acid (0.5-2.2) mmol/L Calcium 7.8 L (8.5-10.3) mg/dL Phosphorus (2.5-4.6) mg/dL Magnesium (1.7-2.8) mg/dL Total Bilirubin 3.5 H (0.2-1.0) mg/dL AST 290 H (10-42) IU/L ALT 72 H (10-60) IU/L Alkaline Phosphatase 147 H (42-121) IU/L Total Protein 6.3 L (6.7-8.2) g/dL Albumin 3.1 L (3.2-5.5) g/dL Globulin 3.2 (2.1-4.2) g/dL Albumin/Globulin Ratio 1.0 (1.0-2.2) Lipase (22-51) U/L Nasal Adenovirus (PCR) NOT DETECTED Nasal B. parapertussis DNA (PCR) NOT DETECTED Nasal Coronavir 229E PCR NOT DETECTED Nasal Coronavir HKU1 PCR NOT DETECTED Nasal Coronavir NL63 PCR NOT DETECTED Nasal Coronavir OC43 PCR NOT DETECTED Nasal Enterovir/Rhinovir PCR NOT DETECTED Nasal Influenza B PCR NOT DETECTED Nasal Influenza A PCR NOT DETECTED Nasal Parainfluen 1 PCR NOT DETECTED Nasal Parainfluen 2 PCR NOT DETECTED Nasal Parainfluen 3 PCR NOT DETECTED Nasal Parainfluen 4 PCR NOT DETECTED Nasal RSV (PCR) NOT DETECTED Nasal Screen MRSA (PCR) (NEGATIVE) Nasal B.pertussis DNA PCR NOT DETECTED Nasal C.pneumoniae (PCR) NOT DETECTED Caleb Human Metapneumo PCR NOT DETECTED Nasal M.pneumoniae (PCR) NOT DETECTED Nasal SARS-CoV-2 (PCR) NOT DETECTED Urine Opiates Screen (NEGATIVE) Ur Oxycodone Screen (NEGATIVE) Urine Methadone Screen (NEGATIVE) Ur Propoxyphene Screen (NEGATIVE) Ur Barbiturates Screen (NEGATIVE) Ur Tricyclics Screen (NEGATIVE) Ur Phencyclidine Scrn (NEGATIVE) Ur Amphetamine Screen (NEGATIVE) U Methamphetamines Scrn (NEGATIVE) U Benzodiazepines Scrn (NEGATIVE) Urine Cocaine Screen (NEGATIVE) U Cannabinoids Screen (NEGATIVE) Ethyl Alcohol mg/dL 07/21/21 07/21/21 07/21/21 Range/Units 20:05 20:05 20:05 WBC 16.8 H (4.8-10.8) x10^3/uL RBC 4.79 (4.70-6.10) 10^6/uL Hgb 15.4 (14.0-18.0) g/dL Hct 38.9 L (42.0-52.0) % MCV 81.2 (80.0-94.0) fL MCH 32.2 H (27.0-31.0) pg MCHC 39.6 H (32.0-36.0) g/dL RDW 11.4 L (12.0-15.0) % Plt Count 137 (130-450) 10^3/uL MPV 8.9 (7.4-11.4) fL Neut # (Auto) Not Reportable Lymph # (Auto) Not Reportable [place] # (Auto) Not Reportable Eos # (Auto) Not Reportable Baso # (Auto) Not Reportable Absolute Nucleated RBC Not Reportable Total Counted 100 Band Neuts % (Manual) 0 (0 - 10) % Abnorm Lymph % (Manual) 0 % Nucleated RBC % Not Reportable Neutrophils # (Manual) 16.1 H (1.5-6.6) 10^3/uL Lymphocytes # (Manual) 0.5 L (1.5-3.5) 10^3/uL Monocytes # (Manual) 0.2 (0.0-1.0) 10^3/uL Eosinophils # (Manual) 0.0 (0-0.7) 10^3/uL Basophils # (Manual) 0.0 (0-0.1) 10^3/uL Differential Comment MANUAL DIFFERENTIAL Manual Slide Review WBC Morphology (NORMAL) Platelet Estimate NORMAL (130-450,000) (NORMAL) Platelet Morphology NORMAL APPEARANCE (NORMAL) RBC Morph Micro Appear NORMAL APPEARANCE (NORMAL) PT 12.7 H (9.9-12.6) secs INR 1.1 (0.8-1.2) Sodium 106 L* (135-145) mmol/L Potassium 3.2 L (3.5-5.0) mmol/L Chloride 67 L* (101-111) mmol/L Carbon Dioxide 18 L (21-32) mmol/L Anion Gap 21.0 H (6-13) BUN 12 (6-20) mg/dL Creatinine 0.6 (0.6-1.2) mg/dL Estimated GFR (MDRD) 135 (>89) Glucose 162 H (70-100) mg/dL Lactic Acid (0.5-2.2) mmol/L Calcium 8.3 L (8.5-10.3) mg/dL Phosphorus (2.5-4.6) mg/dL Magnesium 1.6 L (1.7-2.8) mg/dL Total Bilirubin 4.1 H (0.2-1.0) mg/dL AST 320 H (10-42) IU/L ALT 81 H (10-60) IU/L Alkaline Phosphatase 141 H (42-121) IU/L Total Protein 6.9 (6.7-8.2) g/dL Albumin 3.6 (3.2-5.5) g/dL Globulin 3.3 (2.1-4.2) g/dL Albumin/Globulin Ratio 1.1 (1.0-2.2) Lipase 600 H (22-51) U/L Nasal Adenovirus (PCR) Nasal B. parapertussis DNA (PCR) Nasal Coronavir 229E PCR Nasal Coronavir HKU1 PCR Nasal Coronavir NL63 PCR Nasal Coronavir OC43 PCR Nasal Enterovir/Rhinovir PCR Nasal Influenza B PCR Nasal Influenza A PCR Nasal Parainfluen 1 PCR Nasal Parainfluen 2 PCR Nasal Parainfluen 3 PCR Nasal Parainfluen 4 PCR Nasal RSV (PCR) Nasal Screen MRSA (PCR) (NEGATIVE) Nasal B.pertussis DNA PCR Nasal C.pneumoniae (PCR) Caleb Human Metapneumo PCR Nasal M.pneumoniae (PCR) Nasal SARS-CoV-2 (PCR) Urine Opiates Screen (NEGATIVE) Ur Oxycodone Screen (NEGATIVE) Urine Methadone Screen (NEGATIVE) Ur Propoxyphene Screen (NEGATIVE) Ur Barbiturates Screen (NEGATIVE) Ur Tricyclics Screen (NEGATIVE) Ur Phencyclidine Scrn (NEGATIVE) Ur Amphetamine Screen (NEGATIVE) U Methamphetamines Scrn (NEGATIVE) U Benzodiazepines Scrn (NEGATIVE) Urine Cocaine Screen (NEGATIVE) U Cannabinoids Screen (NEGATIVE) Ethyl Alcohol 142.2 mg/dL Assessment/Plan - Problem List (1) Hyponatremia Impression: His sodium is still quite decreased at 103. He has been on hypertonic saline at 15 mL an hour. The etiology of his hyponatremia is not clear but I suspect is related to hypokalemia or potentially due to excess alcohol consumption. He is not hypervolemic so doubt cirrhosis or heart failure as the cause. If anything, he appears slightly hypovolemic. I have ordered for urine sodium and urine osmolality but unfortunately the urine osmolality is a send out lab and will not be back for a few days. I will increase his hypertonic saline to 30 mL an hour and will continue to check labs every 3-4 hours. I have asked anesthesia to place a central line for frequent labs and administration of hypertonic saline. We will continue to monitor labs frequently with the goal sodium of approximately 111 over the next 24 hours. (2) Alcohol withdrawal Impression: He reportedly showed evidence of alcohol withdrawal yesterday as he was somewhat delirious at times and tremulous. This morning he is lethargic but will wake up and I suspect this may be due to the Precedex. He is not obviously tremulous on exam. We will discontinue Precedex and start him on Librium. We will continue him on thiamine as well. Social work has been consulted to help assist with detox in the future as that was his goal. Qualifiers: Complication of substance-induced condition: with delirium Qualified Code(s): F10.231 - Alcohol dependence with withdrawal delirium (3) Alcoholic hepatitis Impression: He has alcoholic hepatitis with elevated LFTs although they are improving. He is not a candidate for prednisone based off his discriminant function score. A CT had been ordered today to evaluate for potential pancreatitis. We will consider an ultrasound if there is any evidence of right upper quadrant patho logy. We will continue to monitor his LFTs. Qualifiers: Ascites presence: without ascites Qualified Code(s): K70.10 - Alcoholic hepatitis without ascites (4) Leukocytosis Impression: His white count was elevated at 17,000 but this is slowly improving. I suspect this is likely reactive as there has been no evidence of infection. We will continue to monitor. (5) Pancreatitis Impression: There was concern for pancreatitis given the elevated lipase of 600 and he reportedly had abdominal pain yesterday which she now denies. A CT has been ordered for this morning and we will follow this up. We will keep him on liquid diet as tolerated and continue to trend his lipase. This appears secondary to the alcohol use. Qualifiers: Chronicity: acute Pancreatitis type: alcohol induced Acute pancreatitis complication: unspecified Qualified Code(s): K85.20 - Alcohol induced acute pancreatitis without necrosis or infection (6) Hypokalemia Impression: This is likely due to decreased oral intake. We have replaced this and it is now normal this morning. We will continue to monitor.
[2021-07-22 08:19] LABS: BILIRUBIN,DIRECT 2.1 mg/dL (0.1-0.5); BILIRUBIN,TOTAL 4.6 mg/dL (0.2-1.0); CALCIUM 7.7 mg/dL (8.5-10.3); CREATININE 0.7 mg/dL (0.6-1.2)
[2021-07-22 08:19] LABS: BILIRUBIN,URINE NEGATIVE (NEGATIVE); GLUCOSE, URINE (UA) NEGATIVE (NEGATIVE); KETONES,URINE (UA) TRACE mg/dL (NEGATIVE); LEUKOCYTE ESTERASE, URINE NEGATIVE (NEGATIVE); NITRITE,URINE NEGATIVE (NEGATIVE); OCCULT BLOOD,URINE TRACE-INTA (NEGATIVE); PROTEIN,URINE TRACE mg/dL (NEGATIVE); UROBILINOGEN,URINE 0.2 (NORMAL) E.U./dL (NORMAL)
[2021-07-22 08:23] LABS: BACTERIA,URINE Few /HPF (None Seen); CLARITY,URINE CLEAR (CLEAR); MUCUS,URINE Few Strands; RBC,URINE 0-5 /HPF (0-5); SQUAMOUS EPITHELIAL CELL,UR RARE Squamous (<= Few); WBC,URINE 0-3 /HPF (0-3)
[2021-07-22] MEDS ORDERED: IOPAMIDOL-300 100 ML VIAL IVP ONE (08:55)
[2021-07-22] MEDS: atenoloL 25 MG TABLET PO SCH (09:05)
[2021-07-22] MEDS: allopurinoL 100 MG TABLET PO SCH (09:05)
[2021-07-22] MEDS: THIAMINE 100 MG TABLET PO SCH (09:06)
[2021-07-22] MEDS: chlordiazePOXIDE 25 MG CAPSULE PO SCH ×3 (09:06→18:50)
[2021-07-22] MEDS: SODIUM CHLORIDE 3% HYPERTONIC 500 ML IV SCH ×2 (09:13→20:06)
--- NOTE | 2021-07-22 09:14 | PHARMACY PROGRESS NOTE ---
- Best Possible Medication History Admit Date and Time: 07/21/21 6885 Processed by: Pharmacy Medication History completed: Yes Patient Interview: Pt unable to participate Secondary Source(s): Pharmacy records, Insurance records Patient has fill history for both mesalamine suppositories and sulfasalazine, with sulfasalazine being more recent on 07/03/21 for a 15 day supply. As the person ultimately responsible for medication therapy, providers are able to order a medication from an existing home medication list in [facility] via the "Reconcile Routine" prior to Confirmation of that medication by residential direct support professional. Such practice is discouraged except when the physician, in their clinical judgment, deems that a medical need exists for a medication without regard to previous use.
--- NOTE | 2021-07-22 09:22 | CT Report ---
PROCEDURE: Abdomen/Pelvis W INDICATIONS: abdominal pain CONTRAST: IV CONTRAST: Isovue 300 ml: 100 PO CONTRAST: *NO PO CONTRAST TECHNIQUE: After the administration of contrast, 5 mm thick sections acquired from the diaphragms to the sym physis. 5 mm thick coronal and sagittal reformats were acquired. For radiation dose reduction, the following was used: automated exposure control, adjustment of mA and/or kV according to patient size . COMPARISON: None. FINDINGS: Image quality: Excellent. ABDOMEN: Lung bases: Lung bases are clear. Heart size is normal. Solid organs: Liver: The liver has no mass or intrahepatic biliary ductal dilatation. The portal vein and hepatic veins are patent. The liver demonstrates hepatic steatosis. Biliary: The gallbladder has no gallstones, pericholecystic fluid, gallbladder wall thickening, or pringle rrounding inflammatory change. Pancreas: No pancreatic mass or ductal dilatation. There is peripancreatic inflammation with inflamma tion extending into the right colic gutter.. Spleen: Normal size. No mass. Adrenal glands: No hypertrophy or nodules. Kidneys: No obstructive calculus or hydronephrosis. No solid mass. No cystic mass. Bowel: The distal esophagus and stomach are normal. The small bowel has a normal caliber and appeara nce. The large bowel has a normal caliber and appearance. Free air/free fluid: No free air or free fluid. Abdominal wall: No abdominal wall mass or hernia. Retroperitoneum: No retroperitoneal or mesenteric adenopathy by size criteria. The aorta has atheros clerotic calcifications. Lymph nodes: No adenopathy. Bones: No suspicious bony lesions. Multilevel degenerative changes of the lumbar spine with disc dis ease at L5-S1. PELVIS: Genitourinary: Bladder wall thickness is normal. Miscellaneous: No inguinal hernias or adenopathy. Bones: No suspicious bony lesions. No vertebral body compression fractures. IMPRESSION: 1. Peripancreatic inflammation consistent with acute pancreatitis with inflammation extending into th e right colic gutter. 2. Hepatic steatosis. Reviewed by: Delta Lebron on 07/22/2021 8:21 AM [facility] Approved by: Delta Lebron on 07/22/2021 8:21 AM [facility] Station ID: [id number]
[2021-07-22 11:12] LABS: CALCIUM, IONIZED 1.02 mmol/L (1.15-1.33); VBG PH 7.553 (7.31-7.41)
[2021-07-22 11:29] LABS: CALCIUM 7.7 mg/dL (8.5-10.3); CREATININE 0.7 mg/dL (0.6-1.2); POTASSIUM 4.2 mmol/L (3.5-5.0)
--- NOTE | 2021-07-22 13:16 | ANESTHESIA PROCEDURE NOTE ---
Anesth Central Line Template - Central Line Central Line Preparation: Consent Obtained, Time out completed, Ultrasound used, Sterile prep and drape Central line location: Right IJ Central line type: Triple lumen Central line catheter tip site resides: Superior vena cava (SVC) Central line aftercare: Chlorhexidine disc placed, Secured (suturex1), Placement confirmed, No complications, Bundle checklist complete, Pt tolerated well
--- NOTE | 2021-07-22 13:31 | XRAY Report ---
PROCEDURE: Chest for Line Placement INDICATIONS: line placement TECHNIQUE: One view of the chest was acquired. COMPARISON: None FINDINGS: Surgical changes and devices: There is a right IJ catheter. Lungs and pleura: No pleural effusions or pneumothorax. There is a left lower lobe infiltrate. Mediastinum: Mediastinal contours appear normal. Heart size is normal. Bones and chest wall: No suspicious bony lesions. Overlying soft tissues appear unremarkable. IMPRESSION: 1. Right IJ catheter appears well-positioned. 2. Left lower lobe infiltrate consistent with atelectasis or pneumonia. Reviewed by: Delta Lebron on 07/22/2021 12:29 PM [facility] Approved by: Delta Lebron on 07/22/2021 12:29 PM [facility] Station ID: [id number]
[2021-07-22] MEDS ORDERED: CALCIUM CHLORIDE 1,000 MG in SODIUM CHLORIDE 0.9% 50 ML IV ONE (14:00)
[2021-07-22] MEDS: SODIUM CHLORIDE FLUSH 0.9% 10 ML SYRINGE IVP PRN ×4 (15:19→22:56)
[2021-07-22 15:44] LABS: CALCIUM 7.7 mg/dL (8.5-10.3); CREATININE 0.6 mg/dL (0.6-1.2)
[2021-07-22 19:24] LABS: CALCIUM 8.1 mg/dL (8.5-10.3); CREATININE 0.7 mg/dL (0.6-1.2); POTASSIUM 3.8 mmol/L (3.5-5.0)
[2021-07-22] MEDS ORDERED: SODIUM CHLORIDE 0.9% 500 ML IV PRN (22:22)
[2021-07-22 23:14] LABS: CALCIUM 8.1 mg/dL (8.5-10.3); CREATININE 0.7 mg/dL (0.6-1.2); POTASSIUM 3.9 mmol/L (3.5-5.0)
[2021-07-23] MEDS: chlordiazePOXIDE 25 MG CAPSULE PO SCH ×5 (00:08→21:58)
[2021-07-23] MEDS ORDERED: POTASSIUM CHLOR 20 MEQ/100 ML 20 MEQ/100 ML BAG IV ONE (01:37)
[2021-07-23] MEDS: SODIUM CHLORIDE FLUSH 0.9% 10 ML SYRINGE IVP SCH (04:33)
[2021-07-23] MEDS: SODIUM CHLORIDE FLUSH 0.9% 10 ML SYRINGE IVP PRN ×2 (04:33→06:15)
[2021-07-23 05:08] LABS: CALCIUM, IONIZED 1.11 mmol/L (1.15-1.33); VBG PH 7.46 (7.31-7.41)
[2021-07-23 05:25] LABS: ALBUMIN 2.7 g/dL (3.2-5.5); BILIRUBIN,DIRECT 2.4 mg/dL (0.1-0.5); CALCIUM 7.9 mg/dL (8.5-10.3); CREATININE 0.6 mg/dL (0.6-1.2); MAGNESIUM 2.3 mg/dL (1.7-2.8); PHOSPHORUS 1.4 mg/dL (2.5-4.6); POTASSIUM 3.7 mmol/L (3.5-5.0); TOTAL PROTEIN 5.8 g/dL (6.7-8.2)
[2021-07-23 05:52] LABS: BASOPHILS % (AUTO) 0.2 %; HCT - HEMATOCRIT 33.7 % (42.0-52.0); MEAN CORPUSCULAR HEMOGLOBIN 32.7 pg (27.0-31.0); MEAN CORPUSCULAR HGB CONC 38.6 g/dL (32.0-36.0); MEAN CORPUSCULAR VOLUME 84.9 fL (80.0-94.0); MEAN PLATELET VOLUME 10.4 fL (7.4-11.4); MONOCYTES % (AUTO) 9.5 %; NEUTROPHILS % (AUTO) 81.5 %; PLT - PLATELET COUNT 77 10^3/uL (130-450); RED BLOOD COUNT 3.97 10^6/uL (4.70-6.10); RED CELL DISTRIBUTION WIDTH 11.7 % (12.0-15.0); WHITE BLOOD COUNT 9.7 x10^3/uL (4.8-10.8)
[2021-07-23 05:53] LABS: ABNORMAL LYMPHS % (MANUAL) 0 %; BAND NEUTROPHILS % (MANUAL) 0 %
[2021-07-23 06:04] LABS: DIFFERENTIAL COMMENT MANUAL DIFFERENTIAL; LYMPHOCYTES # (MANUAL) 0.9 10^3/uL (1.5-3.5); LYMPHOCYTES % (MANUAL) 9 %; NEUTROPHILS # (MANUAL) 7.9 10^3/uL (1.5-6.6); PLATELET ESTIMATE, MANUAL DECREASED (<130,000) (NORMAL); PLATELET MORPHOLOGY NORMAL APPEARANCE (NORMAL); RBC MORPHOLOGY (MULTIPLE) NORMAL APPEARANCE (NORMAL); WBC MORPHOLOGY (MULTIPLE) NORMAL APPEARANCE (NORMAL)
[2021-07-23] MEDS: PANTOPRAZOLE 40 MG VIAL IVP SCH (06:15)
--- NOTE | 2021-07-23 07:49 | PROVIDER PROGRESS NOTE ---
Subjective - Prog Note Date Prog Note Date: 07/23/21 - Subjective Subjective: He feels much better today. Denies any abdominal pain. He understands he must quit alcohol as he does not want to see himself in this position again. Current Medications - Current Medications Current Medications: Active Medications Allopurinol (Allopurinol 100 Mg Tablet) 100 mg PO DAILY [facility] Last Admin: 07/22/21 09:05 Dose: 100 mg Documented by: Atenolol (Atenolol 25 Mg Tablet) 50 mg PO DAILY [facility] Last Admin: 07/22/21 09:05 Dose: 50 mg Documented by: Calcium Carbonate/Glycine (Calcium Carbonate Chew 500 Mg Tablet) 500 mg PO TID PRN PRN Reason: Heartburn Last Admin: 07/22/21 01:44 Dose: 500 mg Documented by: Calcium Carbonate/Glycine (Calcium Carbonate Chew 500 Mg Tablet) 1,250 mg PO Q4H [facility]; Protocol Stop: 07/23/21 13:01 Chlordiazepoxide HCl (Chlordiazepoxide 25 Mg Capsule) 25 mg PO Q6HR [facility] Last Admin: 07/23/21 06:15 Dose: 25 mg Documented by: Sodium Chloride (Normal Saline 0.9%) 500 mls @ 20 mls/hr IV Q24H PRN PRN Reason: TKO RATE Last Admin: 07/23/21 02:00 Dose: 20 mls/hr Documented by: Potassium Phosphate 21 mmol/ (Sodium Chloride) 257 mls @ 64 mls/hr IV ONCE ONE; Protocol Stop: 07/23/21 13:00 Lorazepam (Lorazepam 2 Mg/Ml Vial) 1 mg IVP Q30M PRN; Protocol PRN Reason: CIWA >8 Last Admin: 07/22/21 22:21 Dose: 1 mg Documented by: Ondansetron HCl (Ondansetron 4 Mg/2 Ml Vial) 4 mg IVP Q6HR PRN PRN Reason: Nausea / Vomiting Pantoprazole Sodium (Pantoprazole 40 Mg Vial) 40 mg IVP QDAC [facility] Last Admin: 07/23/21 06:15 Dose: 40 mg Documented by: Sodium Chloride (Sodium Chloride Flush 0.9% 10 Ml Syringe) 10 ml IVP 0100,0900,1700 [facility] Last Admin: 07/23/21 04:33 Dose: 10 ml Documented by: Sodium Chloride (Sodium Chloride Flush 0.9% 10 Ml Syringe) 20 ml IVP PRN PRN PRN Reason: After Blood Draw Last Admin: 07/23/21 06:15 Dose: 10 ml Documented by: Thiamine HCl (Thiamine 100 Mg Tablet) 100 mg PO DAILY [facility] Last Admin: 07/22/21 09:06 Dose: 100 mg Documented by: Atenolol [Tenormin] 50 mg PO DAILY 12/04/20 Atorvastatin [Lipitor] 20 mg PO QPM 12/04/20 Lisinopril/Hydrochlorothiazide [Zestoretic 20-12.5 mg Tablet] 1 tab PO DAILY 12/04/20 allopurinoL [Zyloprim] 100 mg PO DAILY 12/04/20 Omeprazole Magnesium 20 mg PO BIDAC 07/22/21 Objective - Vital Signs/Intake & Output Reviewed Vital Signs: Yes Vital Signs: Vital Signs Pulse Resp BP Pulse Ox 07/23/21 07:00 87 16 134/69 H 97 07/23/21 06:00 92 17 116/50 L 97 07/23/21 05:00 116 H 24 99/52 L 96 07/23/21 04:30 88 25 H 140/76 H 99 07/23/21 04:00 93 20 137/72 H 98 Intake & Output: Intake & Output 07/20/21 07/21/21 07/22/21 07/23/21 23:59 23:59 23:59 23:59 Intake Total 1152.75 4281.034 477 Output Total 3650 500 Balance 1152.75 631.034 -23 - Objective General Appearance: positive: No acute distress, Alert Eyes Bilateral: positive: Normal inspection, Conjunctivae nml ENT: positive: ENT inspection nml Neck: positive: Nml inspection Respiratory: positive: No respiratory distress. negative: Wheezes, Rales Cardiovascular: positive: Regular rate & rhythm. negative: Tachycardia Abdomen: positive: Non-tender, No distention. negative: Tenderness Skin: positive: Warm, Dry Extremities: positive: No pedal edema Neurologic/Psychiatric: positive: Other (No obvious tremor.). negative: Disoriented to person, Disoriented to place - Lab Results Fish Bones: 07/23/21 04:59 07/23/21 16:57 Other Labs: Lab Results x24hrs 07/23/21 07/23/21 07/23/21 Range/Units 04:59 04:59 04:59 WBC 9.7 (4.8-10.8) x10^3/uL RBC 3.97 L (4.70-6.10) 10^6/uL Hgb 13.0 L (14.0-18.0) g/dL Hct 33.7 L (42.0-52.0) % MCV 84.9 (80.0-94.0) fL MCH 32.7 H (27.0-31.0) pg MCHC 38.6 H (32.0-36.0) g/dL RDW 11.7 L (12.0-15.0) % Plt Count 77 L (130-450) 10^3/uL MPV 10.4 (7.4-11.4) fL Neut # (Auto) Not Reportable (1.5-6.6) 10^3/uL Lymph # (Auto) Not Reportable (1.5-3.5) 10^3/uL [place] # (Auto) Not Reportable (0.0-1.0) 10^3/uL Eos # (Auto) Not Reportable (0.0-0.7) 10^3/uL Baso # (Auto) Not Reportable (0.0-0.1) 10^3/uL Absolute Nucleated RBC Not Reportable x10^3/uL Total Counted 100 Band Neuts % (Manual) 0 (0 - 10) % Abnorm Lymph % (Manual) 0 % Nucleated RBC % Not Reportable /100WBC Neutrophils # (Manual) 7.9 H (1.5-6.6) 10^3/uL Lymphocytes # (Manual) 0.9 L (1.5-3.5) 10^3/uL Monocytes # (Manual) 1.0 (0.0-1.0) 10^3/uL Eosinophils # (Manual) 0.0 (0-0.7) 10^3/uL Basophils # (Manual) 0.0 (0-0.1) 10^3/uL Differential Comment MANUAL DIFFERENTIAL WBC Morphology NORMAL APPEARANCE (NORMAL) Platelet Estimate DECREASED (<130,000) (NORMAL) Platelet Morphology NORMAL APPEARANCE (NORMAL) RBC Morph Micro Appear NORMAL APPEARANCE (NORMAL) VBG pH 7.460 H (7.31-7.41) Ionized Calcium 1.11 L (1.15-1.33) mmol/L Sodium 115 L* (135-145) mmol/L Potassium 3.7 (3.5-5.0) mmol/L Chloride 84 L (101-111) mmol/L Carbon Dioxide 24 (21-32) mmol/L Anion Gap 7.0 (6-13) BUN 8 (6-20) mg/dL Creatinine 0.6 (0.6-1.2) mg/dL Estimated GFR (MDRD) 135 (>89) Glucose 168 H (70-100) mg/dL Lactic Acid (0.5-2.2) mmol/L Calcium 7.9 L (8.5-10.3) mg/dL Phosphorus 1.4 L (2.5-4.6) mg/dL Magnesium 2.3 (1.7-2.8) mg/dL Total Bilirubin 4.0 H (0.2-1.0) mg/dL Direct Bilirubin 2.4 H (0.1-0.5) mg/dL AST 212 H (10-42) IU/L ALT 58 (10-60) IU/L Alkaline Phosphatase 128 H (42-121) IU/L Total Protein 5.8 L (6.7-8.2) g/dL Albumin 2.7 L (3.2-5.5) g/dL Globulin 3.1 (2.1-4.2) g/dL Lipase 81 H (22-51) U/L Urine Color Urine Clarity (CLEAR) Urine pH (5.0-7.5) PH Ur Specific [place] (1.002-1.030) Urine Protein (NEGATIVE) mg/dL Urine Glucose (UA) (NEGATIVE) mg/dL Urine Ketones (NEGATIVE) mg/dL Urine Occult Blood (NEGATIVE) Urine Nitrite (NEGATIVE) Urine Bilirubin (NEGATIVE) Urine Urobilinogen (NORMAL) E.U./dL Ur Leukocyte Esterase (NEGATIVE) Urine RBC (0-5) /HPF Urine WBC (0-3) /HPF Ur Squamous Epith Cells (<= Few) Urine Bacteria (None Seen) /HPF Urine Mucus 07/22/21 07/22/21 07/22/21 Range/Units 22:55 19:01 15:19 WBC (4.8-10.8) x10^3/uL RBC (4.70-6.10) 10^6/uL Hgb (14.0-18.0) g/dL Hct (42.0-52.0) % MCV (80.0-94.0) fL MCH (27.0-31.0) pg MCHC (32.0-36.0) g/dL RDW (12.0-15.0) % Plt Count (130-450) 10^3/uL MPV (7.4-11.4) fL Neut # (Auto) (1.5-6.6) 10^3/uL Lymph # (Auto) (1.5-3.5) 10^3/uL [place] # (Auto) (0.0-1.0) 10^3/uL Eos # (Auto) (0.0-0.7) 10^3/uL Baso # (Auto) (0.0-0.1) 10^3/uL Absolute Nucleated RBC x10^3/uL Total Counted Band Neuts % (Manual) (0 - 10) % Abnorm Lymph % (Manual) % Nucleated RBC % /100WBC Neutrophils # (Manual) (1.5-6.6) 10^3/uL Lymphocytes # (Manual) (1.5-3.5) 10^3/uL Monocytes # (Manual) (0.0-1.0) 10^3/uL Eosinophils # (Manual) (0-0.7) 10^3/uL Basophils # (Manual) (0-0.1) 10^3/uL Differential Comment WBC Morphology (NORMAL) Platelet Estimate (NORMAL) Platelet Morphology (NORMAL) RBC Morph Micro Appear (NORMAL) VBG pH (7.31-7.41) Ionized Calcium (1.15-1.33) mmol/L Sodium 110 L* 108 L* 104 L* (135-145) mmol/L Potassium 3.9 3.8 4.0 (3.5-5.0) mmol/L Chloride 79 L* 76 L* 73 L* (101-111) mmol/L Carbon Dioxide 24 23 24 (21-32) mmol/L Anion Gap 7.0 9.0 7.0 (6-13) BUN 9 9 9 (6-20) mg/dL Creatinine 0.7 0.7 0.6 (0.6-1.2) mg/dL Estimated GFR (MDRD) 113 113 135 (>89) Glucose 192 H 135 H 125 H (70-100) mg/dL Lactic Acid (0.5-2.2) mmol/L Calcium 8.1 L 8.1 L 7.7 L (8.5-10.3) mg/dL Phosphorus (2.5-4.6) mg/dL Magnesium (1.7-2.8) mg/dL Total Bilirubin (0.2-1.0) mg/dL Direct Bilirubin (0.1-0.5) mg/dL AST (10-42) IU/L ALT (10-60) IU/L Alkaline Phosphatase (42-121) IU/L Total Protein (6.7-8.2) g/dL Albumin (3.2-5.5) g/dL Globulin (2.1-4.2) g/dL Lipase (22-51) U/L Urine Color Urine Clarity (CLEAR) Urine pH (5.0-7.5) PH Ur Specific [place] (1.002-1.030) Urine Protein (NEGATIVE) mg/dL Urine Glucose (UA) (NEGATIVE) mg/dL Urine Ketones (NEGATIVE) mg/dL Urine Occult Blood (NEGATIVE) Urine Nitrite (NEGATIVE) Urine Bilirubin (NEGATIVE) Urine Urobilinogen (NORMAL) E.U./dL Ur Leukocyte Esterase (NEGATIVE) Urine RBC (0-5) /HPF Urine WBC (0-3) /HPF Ur Squamous Epith Cells (<= Few) Urine Bacteria (None Seen) /HPF Urine Mucus 07/22/21 07/22/21 07/22/21 Range/Units 11:04 11:04 07:21 WBC (4.8-10.8) x10^3/uL RBC (4.70-6.10) 10^6/uL Hgb (14.0-18.0) g/dL Hct (42.0-52.0) % MCV (80.0-94.0) fL MCH (27.0-31.0) pg MCHC (32.0-36.0) g/dL RDW (12.0-15.0) % Plt Count (130-450) 10^3/uL MPV (7.4-11.4) fL Neut # (Auto) (1.5-6.6) 10^3/uL Lymph # (Auto) (1.5-3.5) 10^3/uL [place] # (Auto) (0.0-1.0) 10^3/uL Eos # (Auto) (0.0-0.7) 10^3/uL Baso # (Auto) (0.0-0.1) 10^3/uL Absolute Nucleated RBC x10^3/uL Total Counted Band Neuts % (Manual) (0 - 10) % Abnorm Lymph % (Manual) % Nucleated RBC % /100WBC Neutrophils # (Manual) (1.5-6.6) 10^3/uL Lymphocytes # (Manual) (1.5-3.5) 10^3/uL Monocytes # (Manual) (0.0-1.0) 10^3/uL Eosinophils # (Manual) (0-0.7) 10^3/uL Basophils # (Manual) (0-0.1) 10^3/uL Differential Comment WBC Morphology (NORMAL) Platelet Estimate (NORMAL) Platelet Morphology (NORMAL) RBC Morph Micro Appear (NORMAL) VBG pH 7.553 H (7.31-7.41) Ionized Calcium 1.02 L (1.15-1.33) mmol/L Sodium 103 L* (135-145) mmol/L Potassium 4.2 (3.5-5.0) mmol/L Chloride 73 L* (101-111) mmol/L Carbon Dioxide 22 (21-32) mmol/L Anion Gap 8.0 (6-13) BUN 10 (6-20) mg/dL Creatinine 0.7 (0.6-1.2) mg/dL Estimated GFR (MDRD) 113 (>89) Glucose 136 H (70-100) mg/dL Lactic Acid 1.5 (0.5-2.2) mmol/L Calcium 7.7 L (8.5-10.3) mg/dL Phosphorus (2.5-4.6) mg/dL Magnesium (1.7-2.8) mg/dL Total Bilirubin (0.2-1.0) mg/dL Direct Bilirubin (0.1-0.5) mg/dL AST (10-42) IU/L ALT (10-60) IU/L Alkaline Phosphatase (42-121) IU/L Total Protein (6.7-8.2) g/dL Albumin (3.2-5.5) g/dL Globulin (2.1-4.2) g/dL Lipase (22-51) U/L Urine Color Urine Clarity (CLEAR) Urine pH (5.0-7.5) PH Ur Specific [place] (1.002-1.030) Urine Protein (NEGATIVE) mg/dL Urine Glucose (UA) (NEGATIVE) mg/dL Urine Ketones (NEGATIVE) mg/dL Urine Occult Blood (NEGATIVE) Urine Nitrite (NEGATIVE) Urine Bilirubin (NEGATIVE) Urine Urobilinogen (NORMAL) E.U./dL Ur Leukocyte Esterase (NEGATIVE) Urine RBC (0-5) /HPF Urine WBC (0-3) /HPF Ur Squamous Epith Cells (<= Few) Urine Bacteria (None Seen) /HPF Urine Mucus 07/22/21 07/22/21 07/22/21 Range/Units 07:21 07:21 01:30 WBC (4.8-10.8) x10^3/uL RBC (4.70-6.10) 10^6/uL Hgb (14.0-18.0) g/dL Hct (42.0-52.0) % MCV (80.0-94.0) fL MCH (27.0-31.0) pg MCHC (32.0-36.0) g/dL RDW (12.0-15.0) % Plt Count (130-450) 10^3/uL MPV (7.4-11.4) fL Neut # (Auto) 10.8 H (1.5-6.6) 10^3/uL Lymph # (Auto) 0.5 L (1.5-3.5) 10^3/uL [place] # (Auto) 0.8 (0.0-1.0) 10^3/uL Eos # (Auto) 0.0 (0.0-0.7) 10^3/uL Baso # (Auto) 0.0 (0.0-0.1) 10^3/uL Absolute Nucleated RBC 0.00 x10^3/uL Total Counted Band Neuts % (Manual) (0 - 10) % Abnorm Lymph % (Manual) % Nucleated RBC % 0.0 /100WBC Neutrophils # (Manual) (1.5-6.6) 10^3/uL Lymphocytes # (Manual) (1.5-3.5) 10^3/uL Monocytes # (Manual) (0.0-1.0) 10^3/uL Eosinophils # (Manual) (0-0.7) 10^3/uL Basophils # (Manual) (0-0.1) 10^3/uL Differential Comment WBC Morphology (NORMAL) Platelet Estimate (NORMAL) Platelet Morphology (NORMAL) RBC Morph Micro Appear (NORMAL) VBG pH (7.31-7.41) Ionized Calcium (1.15-1.33) mmol/L Sodium 103 L* (135-145) mmol/L Potassium 4.0 (3.5-5.0) mmol/L Chloride 72 L* (101-111) mmol/L Carbon Dioxide 22 (21-32) mmol/L Anion Gap 9.0 (6-13) BUN 11 (6-20) mg/dL Creatinine 0.7 (0.6-1.2) mg/dL Estimated GFR (MDRD) 113 (>89) Glucose 141 H (70-100) mg/dL Lactic Acid (0.5-2.2) mmol/L Calcium 7.7 L (8.5-10.3) mg/dL Phosphorus (2.5-4.6) mg/dL Magnesium (1.7-2.8) mg/dL Total Bilirubin 4.6 H (0.2-1.0) mg/dL Direct Bilirubin 2.1 H (0.1-0.5) mg/dL AST 277 H (10-42) IU/L ALT 68 H (10-60) IU/L Alkaline Phosphatase 135 H (42-121) IU/L Total Protein 6.0 L (6.7-8.2) g/dL Albumin 3.0 L (3.2-5.5) g/dL Globulin 3.0 (2.1-4.2) g/dL Lipase 638 H (22-51) U/L Urine Color DARK YELLOW Urine Clarity CLEAR (CLEAR) Urine pH 6.0 (5.0-7.5) PH Ur Specific [place] >=1.030 H (1.002-1.030) Urine Protein TRACE (NEGATIVE) mg/dL Urine Glucose (UA) NEGATIVE (NEGATIVE) mg/dL Urine Ketones TRACE (NEGATIVE) mg/dL Urine Occult Blood TRACE-INTA (NEGATIVE) Urine Nitrite NEGATIVE (NEGATIVE) Urine Bilirubin NEGATIVE (NEGATIVE) Urine Urobilinogen 0.2 (NORMAL) (NORMAL) E.U./dL Ur Leukocyte Esterase NEGATIVE (NEGATIVE) Urine RBC 0-5 (0-5) /HPF Urine WBC 0-3 (0-3) /HPF Ur Squamous Epith Cells RARE Squamous (<= Few) Urine Bacteria Few (None Seen) /HPF Urine Mucus Few Strands Assessment/Plan - Problem List (1) Hyponatremia Impression: This is likely hypovolemic hyponatremia. His sodium was decreased initially at 106 and this dropped further to 103 before increasing the rate to 115. He was treated with hypertonic saline yesterday. This has since been discontinued given the rise in his sodium. A med rec was completed and it appears he is on hydrochlorothiazide at home which I suspect was contributing to the hyponatremia as well as decreased oral intake and his alcohol use. We will repeat labs this morning to ensure his sodium is stable as our goal sodium would be around 114 at this time and would not want him to rise too quickly. If his sodium is increasing further we can consider D5 water. If his sodium is decreased again we will start him on normal saline at maintenance rate. We will continue to check labs every 4 hours. (2) Alcohol withdrawal Impression: He was initially quite tremulous on admission but has been doing well since initiation of Librium. We will begin to taper this slowly over the next few days. We will continue thiamine. He was counseled on the importance of alcohol cessation and so short has been consulted to discuss treatment options. Qualifiers: Complication of substance-induced condition: with delirium Qualified Code(s): F10.231 - Alcohol dependence with withdrawal delirium (3) Alcoholic hepatitis Impression: His LFTs are improving.There is currently no role for steroids given his low discriminant function score. We will continue to trend. We have discussed the importance of alcohol cessation. Qualifiers: Ascites presence: without ascites Qualified Code(s): K70.10 - Alcoholic hepatitis without ascites (4) Pancreatitis Impression: His lipase was initially elevated at [address] yesterday did reveal pancreatic inflammation consistent with pancreatitis. There is no evidence of gallstones. His lipase is now within normal limits. We will continue to advance his diet as tolerated. Qualifiers: Chronicity: acute Pancreatitis type: alcohol induced Acute pancreatitis complication: unspecified Qualified Code(s): K85.20 - Alcohol induced acute pancreatitis without necrosis or infection (5) Leukocytosis Impression: This was likely reactive. His white blood cell count is now within normal limits and there has been no evidence of infection. We will continue to monitor. (6) Hypokalemia Impression: This has resolved.
[2021-07-23] MEDS ORDERED: POTASSIUM PHOSPHATE 21 MMOL in SODIUM CHLORIDE 0.9% 250 ML IV ONE (09:00)
[2021-07-23 09:34] LABS: CALCIUM 8.1 mg/dL (8.5-10.3); CREATININE 0.6 mg/dL (0.6-1.2); POTASSIUM 3.6 mmol/L (3.5-5.0)
[2021-07-23] MEDS ORDERED: DEXTROSE 5% 1,000 ML IV SCH ×2 (10:00)
[2021-07-23] MEDS ORDERED: DESMOPRESSIN 2 MCG in SODIUM CHLORIDE 0.9% 50 ML IV ONE (10:00)
[2021-07-23] MEDS: CALCIUM CARBONATE CHEW 500 MG TABLET PO SCH ×2 (10:42→17:32)
[2021-07-23] MEDS: THIAMINE 100 MG TABLET PO SCH (10:42)
[2021-07-23] MEDS: atenoloL 25 MG TABLET PO SCH (10:42)
[2021-07-23] MEDS: allopurinoL 100 MG TABLET PO SCH (10:42)
[2021-07-23] MEDS: LORazepam 2 MG/ML VIAL IVP PRN ×2 (11:50→14:55)
[2021-07-23 12:12] LABS: CALCIUM 7.6 mg/dL (8.5-10.3); CREATININE 0.7 mg/dL (0.6-1.2); POTASSIUM 3.5 mmol/L (3.5-5.0)
[2021-07-23 13:31] LABS: ESTIMATED AVERAGE GLUCOSE 128 mg/dL (70-100); HEMOGLOBIN A1c% 6.1 % (4.27-6.07)
[2021-07-23 17:17] LABS: CALCIUM 7.9 mg/dL (8.5-10.3); CREATININE 0.6 mg/dL (0.6-1.2); POTASSIUM 3.5 mmol/L (3.5-5.0)
[2021-07-23] MEDS: INSULIN ASPART 300 UNIT/3 ML PEN SUBQ SCH ×2 (17:28→21:36)
[2021-07-23] MEDS ORDERED: POTASSIUM CHLOR 20 MEQ/100 ML 20 MEQ/100 ML BAG IV SCH (18:00)
[2021-07-23] MEDS: SODIUM CHLORIDE 0.9% 1,000 ML IV SCH (19:52)
[2021-07-23] MEDS: POTASSIUM CHLOR 10 MEQ/100 ML 10 MEQ/100 ML BAG IV SCH ×4 (20:28→23:41)
[2021-07-24] MEDS: SODIUM CHLORIDE FLUSH 0.9% 10 ML SYRINGE IVP SCH ×4 (00:45→21:57)
[2021-07-24] MEDS: SODIUM CHLORIDE FLUSH 0.9% 10 ML SYRINGE IVP PRN ×2 (00:53→21:57)
[2021-07-24 01:08] LABS: CALCIUM 8.1 mg/dL (8.5-10.3); CREATININE 0.5 mg/dL (0.6-1.2); POTASSIUM 3.9 mmol/L (3.5-5.0)
[2021-07-24] MEDS ORDERED: POTASSIUM CHLORIDE 20 MEQ TABLET PO ONE (01:42)
[2021-07-24 05:33] LABS: BASOPHILS % (AUTO) 0.2 %; EOSINOPHILS % (AUTO) 0.2 %; HCT - HEMATOCRIT 30.7 % (42.0-52.0); HGB - HEMOGLOBIN 11.4 g/dL (14.0-18.0); LYMPHOCYTES # (AUTO) 0.8 10^3/uL (1.5-3.5); LYMPHOCYTES % (AUTO) 16.1 %; MEAN CORPUSCULAR HEMOGLOBIN 32.2 pg (27.0-31.0); MEAN CORPUSCULAR HGB CONC 37.1 g/dL (32.0-36.0); MEAN CORPUSCULAR VOLUME 86.7 fL (80.0-94.0); MEAN PLATELET VOLUME 9.6 fL (7.4-11.4); MONOCYTES # (AUTO) 0.5 10^3/uL (0.0-1.0); MONOCYTES % (AUTO) 10.8 %; NEUTROPHILS # (AUTO) 3.5 10^3/uL (1.5-6.6); NEUTROPHILS % (AUTO) 71.7 %; PLT - PLATELET COUNT 77 10^3/uL (130-450); RED BLOOD COUNT 3.54 10^6/uL (4.70-6.10); WHITE BLOOD COUNT 4.9 x10^3/uL (4.8-10.8)
[2021-07-24 05:41] LABS: ALBUMIN 2.6 g/dL (3.2-5.5); BILIRUBIN,TOTAL 3.3 mg/dL (0.2-1.0); MAGNESIUM 2.3 mg/dL (1.7-2.8); PHOSPHORUS 1.4 mg/dL (2.5-4.6)
[2021-07-24 05:54] LABS: CALCIUM, IONIZED 1.16 mmol/L (1.15-1.33); VBG PH 7.376 (7.31-7.41)
[2021-07-24] MEDS: chlordiazePOXIDE 25 MG CAPSULE PO SCH ×3 (06:09→21:19)
[2021-07-24] MEDS: SODIUM CHLORIDE 0.9% 1,000 ML IV SCH (06:10)
[2021-07-24] MEDS: PANTOPRAZOLE 40 MG VIAL IVP SCH (06:10)
[2021-07-24 06:33] LABS: CALCIUM 8.1 mg/dL (8.5-10.3); CREATININE 0.5 mg/dL (0.6-1.2); POTASSIUM 3.7 mmol/L (3.5-5.0)
[2021-07-24] MEDS ORDERED: SODIUM CHLORIDE 0.9% 1,000 ML IV SCH (07:45)
[2021-07-24] MEDS ORDERED: POTASSIUM PHOSPHATE 21 MMOL in SODIUM CHLORIDE 0.9% 250 ML IV ONE (08:00)
--- NOTE | 2021-07-24 08:08 | PROVIDER PROGRESS NOTE ---
Subjective - Prog Note Date Prog Note Date: 07/24/21 - Subjective Subjective: He feels improved today. No abdominal pain or dyspnea. Current Medications - Current Medications Current Medications: Active Medications Allopurinol (Allopurinol 100 Mg Tablet) 100 mg PO DAILY [facility] Last Admin: 07/23/21 10:42 Dose: 100 mg Documented by: Atenolol (Atenolol 25 Mg Tablet) 50 mg PO DAILY [facility] Last Admin: 07/23/21 10:42 Dose: 50 mg Documented by: Calcium Carbonate/Glycine (Calcium Carbonate Chew 500 Mg Tablet) 500 mg PO TID PRN PRN Reason: Heartburn Last Admin: 07/22/21 01:44 Dose: 500 mg Documented by: Chlordiazepoxide HCl (Chlordiazepoxide 25 Mg Capsule) 25 mg PO TID [facility] Last Admin: 07/24/21 06:09 Dose: 25 mg Documented by: Sodium Chloride (Normal Saline 0.9%) 500 mls @ 20 mls/hr IV Q24H PRN PRN Reason: TKO RATE Last Admin: 07/23/21 02:00 Dose: 20 mls/hr Documented by: Potassium Phosphate 21 mmol/ (Sodium Chloride) 257 mls @ 64 mls/hr IV ONCE ONE; Protocol Stop: 07/24/21 12:00 Sodium Chloride (Normal Saline 0.9%) 1,000 mls @ 75 mls/hr IV .[id number] [facility] Last Admin: 07/24/21 07:58 Dose: 75 mls/hr Documented by: Insulin Aspart (Insulin Aspart 300 Unit/3 Ml Pen) 1 - 9 unit SUBQ 0800,1200,1700,2100 [facility]; Protocol Last Admin: 07/23/21 21:36 Dose: 1 unit Documented by: Lorazepam (Lorazepam 2 Mg/Ml Vial) 1 mg IVP Q30M PRN; Protocol PRN Reason: CIWA >8 Last Admin: 07/23/21 14:55 Dose: 1 mg Documented by: Ondansetron HCl (Ondansetron 4 Mg/2 Ml Vial) 4 mg IVP Q6HR PRN PRN Reason: Nausea / Vomiting Pantoprazole Sodium (Pantoprazole 40 Mg Vial) 40 mg IVP QDAC [facility] Last Admin: 07/24/21 06:10 Dose: 40 mg Documented by: Sodium Chloride (Sodium Chloride Flush 0.9% 10 Ml Syringe) 10 ml IVP 0100,0900,1700 [facility] Last Admin: 07/24/21 00:45 Dose: 10 ml Documented by: Sodium Chloride (Sodium Chloride Flush 0.9% 10 Ml Syringe) 20 ml IVP PRN PRN PRN Reason: After Blood Draw Last Admin: 07/24/21 00:53 Dose: 20 ml Documented by: Thiamine HCl (Thiamine 100 Mg Tablet) 100 mg PO DAILY [facility] Last Admin: 07/23/21 10:42 Dose: 100 mg Documented by: Atenolol [Tenormin] 50 mg PO DAILY 12/04/20 Atorvastatin [Lipitor] 20 mg PO QPM 12/04/20 Lisinopril/Hydrochlorothiazide [Zestoretic 20-12.5 mg Tablet] 1 tab PO DAILY 12/04/20 allopurinoL [Zyloprim] 100 mg PO DAILY 12/04/20 Omeprazole Magnesium 20 mg PO BIDAC 07/22/21 Objective - Vital Signs/Intake & Output Reviewed Vital Signs: Yes Vital Signs: Vital Signs Pulse Resp BP Pulse Ox 07/24/21 07:00 80 13 131/77 H 99 07/24/21 06:00 76 14 139/73 H 98 07/24/21 05:00 78 14 140/79 H 99 Intake & Output: Intake & Output 07/21/21 07/22/21 07/23/21 07/24/21 23:59 23:59 23:59 23:59 Intake Total 1152.75 4341.034 3084.5 1600 Output Total 3650 1880 790 Balance 1152.75 727.297 7329.5 810 - Objective General Appearance: positive: No acute distress, Alert Eyes Bilateral: positive: Normal inspection ENT: positive: ENT inspection nml Neck: positive: Nml inspection Respiratory: positive: No respiratory distress. negative: Wheezes, Rales Cardiovascular: positive: Regular rate & rhythm. negative: Tachycardia Abdomen: positive: Non-tender. negative: Tenderness, Rebound Skin: positive: Warm, Dry Extremities: positive: No pedal edema Neurologic/Psychiatric: negative: Disoriented to person, Disoriented to place - Lab Results Fish Bones: 07/24/21 04:45 07/24/21 17:09 Other Labs: Lab Results x24hrs 07/24/21 07/24/21 07/24/21 Range/Units 07:28 04:45 04:45 WBC (4.8-10.8) x10^3/uL RBC (4.70-6.10) 10^6/uL Hgb (14.0-18.0) g/dL Hct (42.0-52.0) % MCV (80.0-94.0) fL MCH (27.0-31.0) pg MCHC (32.0-36.0) g/dL RDW (12.0-15.0) % Plt Count (130-450) 10^3/uL MPV (7.4-11.4) fL Neut # (Auto) (1.5-6.6) 10^3/uL Lymph # (Auto) (1.5-3.5) 10^3/uL [place] # (Auto) (0.0-1.0) 10^3/uL Eos # (Auto) (0.0-0.7) 10^3/uL Baso # (Auto) (0.0-0.1) 10^3/uL Absolute Nucleated RBC x10^3/uL Nucleated RBC % /100WBC VBG pH 7.376 (7.31-7.41) Ionized Calcium 1.16 (1.15-1.33) mmol/L Sodium 123 L (135-145) mmol/L Potassium 3.7 (3.5-5.0) mmol/L Chloride 93 L (101-111) mmol/L Carbon Dioxide 25 (21-32) mmol/L Anion Gap 5.0 L (6-13) BUN 6 (6-20) mg/dL Creatinine 0.5 L (0.6-1.2) mg/dL Estimated GFR (MDRD) 167 (>89) Glucose 148 H (70-100) mg/dL POC Whole Bld Glucose 148 H (70 - 100) mg/dL Estimat Average Glucose (70-100) mg/dL Hemoglobin A1c % (4.27-6.07) % Calcium 8.1 L (8.5-10.3) mg/dL Phosphorus (2.5-4.6) mg/dL Magnesium (1.7-2.8) mg/dL Total Bilirubin (0.2-1.0) mg/dL Direct Bilirubin (0.1-0.5) mg/dL AST (10-42) IU/L ALT (10-60) IU/L Alkaline Phosphatase (42-121) IU/L Total Protein (6.7-8.2) g/dL Albumin (3.2-5.5) g/dL Globulin (2.1-4.2) g/dL Lipase (22-51) U/L 07/24/21 07/24/21 07/24/21 Range/Units 04:45 04:45 00:53 WBC 4.9 (4.8-10.8) x10^3/uL RBC 3.54 L (4.70-6.10) 10^6/uL Hgb 11.4 L (14.0-18.0) g/dL Hct 30.7 L (42.0-52.0) % MCV 86.7 (80.0-94.0) fL MCH 32.2 H (27.0-31.0) pg MCHC 37.1 H (32.0-36.0) g/dL RDW 12.0 (12.0-15.0) % Plt Count 77 L (130-450) 10^3/uL MPV 9.6 (7.4-11.4) fL Neut # (Auto) 3.5 (1.5-6.6) 10^3/uL Lymph # (Auto) 0.8 L (1.5-3.5) 10^3/uL [place] # (Auto) 0.5 (0.0-1.0) 10^3/uL Eos # (Auto) 0.0 (0.0-0.7) 10^3/uL Baso # (Auto) 0.0 (0.0-0.1) 10^3/uL Absolute Nucleated RBC 0.00 x10^3/uL Nucleated RBC % 0.0 /100WBC VBG pH (7.31-7.41) Ionized Calcium (1.15-1.33) mmol/L Sodium 121 L (135-145) mmol/L Potassium 3.9 (3.5-5.0) mmol/L Chloride 90 L (101-111) mmol/L Carbon Dioxide 25 (21-32) mmol/L Anion Gap 6.0 (6-13) BUN 6 (6-20) mg/dL Creatinine 0.5 L (0.6-1.2) mg/dL Estimated GFR (MDRD) 167 (>89) Glucose 152 H (70-100) mg/dL POC Whole Bld Glucose (70 - 100) mg/dL Estimat Average Glucose (70-100) mg/dL Hemoglobin A1c % (4.27-6.07) % Calcium 8.1 L (8.5-10.3) mg/dL Phosphorus 1.4 L (2.5-4.6) mg/dL Magnesium 2.3 (1.7-2.8) mg/dL Total Bilirubin 3.3 H (0.2-1.0) mg/dL Direct Bilirubin 2.0 H (0.1-0.5) mg/dL AST 152 H (10-42) IU/L ALT 59 (10-60) IU/L Alkaline Phosphatase 177 H (42-121) IU/L Total Protein 6.0 L (6.7-8.2) g/dL Albumin 2.6 L (3.2-5.5) g/dL Globulin 3.4 (2.1-4.2) g/dL Lipase 80 H (22-51) U/L 07/23/21 07/23/21 07/23/21 Range/Units 21:35 16:57 11:55 WBC (4.8-10.8) x10^3/uL RBC (4.70-6.10) 10^6/uL Hgb (14.0-18.0) g/dL Hct (42.0-52.0) % MCV (80.0-94.0) fL MCH (27.0-31.0) pg MCHC (32.0-36.0) g/dL RDW (12.0-15.0) % Plt Count (130-450) 10^3/uL MPV (7.4-11.4) fL Neut # (Auto) (1.5-6.6) 10^3/uL Lymph # (Auto) (1.5-3.5) 10^3/uL [place] # (Auto) (0.0-1.0) 10^3/uL Eos # (Auto) (0.0-0.7) 10^3/uL Baso # (Auto) (0.0-0.1) 10^3/uL Absolute Nucleated RBC x10^3/uL Nucleated RBC % /100WBC VBG pH (7.31-7.41) Ionized Calcium (1.15-1.33) mmol/L Sodium 114 L* 117 L* (135-145) mmol/L Potassium 3.5 3.5 (3.5-5.0) mmol/L Chloride 84 L 87 L (101-111) mmol/L Carbon Dioxide 26 23 (21-32) mmol/L Anion Gap 4.0 L 7.0 (6-13) BUN 8 9 (6-20) mg/dL Creatinine 0.6 0.7 (0.6-1.2) mg/dL Estimated GFR (MDRD) 135 113 (>89) Glucose 180 H 275 H (70-100) mg/dL POC Whole Bld Glucose 167 H (70 - 100) mg/dL Estimat Average Glucose (70-100) mg/dL Hemoglobin A1c % (4.27-6.07) % Calcium 7.9 L 7.6 L (8.5-10.3) mg/dL Phosphorus (2.5-4.6) mg/dL Magnesium (1.7-2.8) mg/dL Total Bilirubin (0.2-1.0) mg/dL Direct Bilirubin (0.1-0.5) mg/dL AST (10-42) IU/L ALT (10-60) IU/L Alkaline Phosphatase (42-121) IU/L Total Protein (6.7-8.2) g/dL Albumin (3.2-5.5) g/dL Globulin (2.1-4.2) g/dL Lipase (22-51) U/L 07/23/21 07/23/21 Range/Units 08:55 04:59 WBC (4.8-10.8) x10^3/uL RBC (4.70-6.10) 10^6/uL Hgb (14.0-18.0) g/dL Hct (42.0-52.0) % MCV (80.0-94.0) fL MCH (27.0-31.0) pg MCHC (32.0-36.0) g/dL RDW (12.0-15.0) % Plt Count (130-450) 10^3/uL MPV (7.4-11.4) fL Neut # (Auto) (1.5-6.6) 10^3/uL Lymph # (Auto) (1.5-3.5) 10^3/uL [place] # (Auto) (0.0-1.0) 10^3/uL Eos # (Auto) (0.0-0.7) 10^3/uL Baso # (Auto) (0.0-0.1) 10^3/uL Absolute Nucleated RBC x10^3/uL Nucleated RBC % /100WBC VBG pH (7.31-7.41) Ionized Calcium (1.15-1.33) mmol/L Sodium 119 L* (135-145) mmol/L Potassium 3.6 (3.5-5.0) mmol/L Chloride 87 L (101-111) mmol/L Carbon Dioxide 25 (21-32) mmol/L Anion Gap 7.0 (6-13) BUN 8 (6-20) mg/dL Creatinine 0.6 (0.6-1.2) mg/dL Estimated GFR (MDRD) 135 (>89) Glucose 178 H (70-100) mg/dL POC Whole Bld Glucose (70 - 100) mg/dL Estimat Average Glucose 128 H (70-100) mg/dL Hemoglobin A1c % 6.1 H (4.27-6.07) % Calcium 8.1 L (8.5-10.3) mg/dL Phosphorus (2.5-4.6) mg/dL Magnesium (1.7-2.8) mg/dL Total Bilirubin (0.2-1.0) mg/dL Direct Bilirubin (0.1-0.5) mg/dL AST (10-42) IU/L ALT (10-60) IU/L Alkaline Phosphatase (42-121) IU/L Total Protein (6.7-8.2) g/dL Albumin (3.2-5.5) g/dL Globulin (2.1-4.2) g/dL Lipase (22-51) U/L Assessment/Plan - Problem List (1) Hyponatremia Impression: This was likely hypovolemic hyponatremia secondary to HCTZ. Sodium has improved to 123 this morning. We will reduce the rate of normal saline and recheck a BMP this morning to ensure he does not climb too quickly as he was 114 yesterday afternoon. If his sodium continues to rise we will discontinue the saline again and consider D5 water and desmopressin. We will continue to check labs every 4 hours. If his labs are stable through this morning and afternoon then we can transfer him out of the ICU. (2) Alcohol withdrawal Impression: This initial concern for alcohol drug given he was delirious but he has done quite well since then with the Librium. We have decreased the dose to 3 times daily today and will plan for twice daily dosing tomorrow. Social work will discuss treatment options with him. Qualifiers: Complication of substance-induced condition: with delirium Qualified Code(s): F10.231 - Alcohol dependence with withdrawal delirium (3) Alcoholic hepatitis Impression: His LFTs are improving. We discussed the importance of alcohol cessation and he appears motivated to change this. Qualifiers: Ascites presence: without ascites Qualified Code(s): K70.10 - Alcoholic hepatitis without ascites (4) Pancreatitis Impression: This has resolved. His lipase is now within normal limits and he is tolerating a diet. We will advance his diet even further. Qualifiers: Chronicity: acute Pancreatitis type: alcohol induced Acute pancreatitis complication: unspecified Qualified Code(s): K85.20 - Alcohol induced acute pancreatitis without necrosis or infection (5) Thrombocytopenia Impression: This is secondary to his liver disease. There has been no evidence of bleeding. We will continue to monitor. (6) Leukocytosis Impression: This has resolved. This was likely reactive in nature and due to hemoconcentration. (7) Hypokalemia Impression: This has resolved.
[2021-07-24] MEDS: INSULIN ASPART 300 UNIT/3 ML PEN SUBQ SCH ×4 (09:21→21:18)
[2021-07-24] MEDS: allopurinoL 100 MG TABLET PO SCH (10:30)
[2021-07-24] MEDS: THIAMINE 100 MG TABLET PO SCH (10:30)
[2021-07-24] MEDS: atenoloL 25 MG TABLET PO SCH (10:30)
[2021-07-24 13:10] LABS: CALCIUM 8.4 mg/dL (8.5-10.3); CREATININE 0.6 mg/dL (0.6-1.2); POTASSIUM 3.9 mmol/L (3.5-5.0)
[2021-07-24] MEDS ORDERED: DEXTROSE 5% 1,000 ML IV SCH (14:00)
[2021-07-24 17:25] LABS: CALCIUM 8.4 mg/dL (8.5-10.3); CREATININE 0.6 mg/dL (0.6-1.2); POTASSIUM 3.8 mmol/L (3.5-5.0)
[2021-07-24 22:20] LABS: CALCIUM 8.5 mg/dL (8.5-10.3); CREATININE 0.6 mg/dL (0.6-1.2); POTASSIUM 3.6 mmol/L (3.5-5.0)
[2021-07-25] MEDS ORDERED: POTASSIUM CHLORIDE 20 MEQ TABLET PO ONE ×2 (00:12→08:00)
[2021-07-25] MEDS: CALCIUM CARBONATE CHEW 500 MG TABLET PO PRN (00:34)
[2021-07-25] MEDS: SODIUM CHLORIDE FLUSH 0.9% 10 ML SYRINGE IVP PRN (04:58)
[2021-07-25 06:08] LABS: BASOPHILS % (AUTO) 0.5 %; EOSINOPHILS % (AUTO) 0.8 %; HCT - HEMATOCRIT 30.6 % (42.0-52.0); HGB - HEMOGLOBIN 11.3 g/dL (14.0-18.0); LYMPHOCYTES % (AUTO) 24.2 %; MEAN CORPUSCULAR HEMOGLOBIN 33.2 pg (27.0-31.0); MEAN CORPUSCULAR HGB CONC 36.9 g/dL (32.0-36.0); MONOCYTES # (AUTO) 0.7 10^3/uL (0.0-1.0); MONOCYTES % (AUTO) 17.1 %; NEUTROPHILS # (AUTO) 2.2 10^3/uL (1.5-6.6); NEUTROPHILS % (AUTO) 56.4 %; PLT - PLATELET COUNT 104 10^3/uL (130-450); RED CELL DISTRIBUTION WIDTH 12.6 % (12.0-15.0)
[2021-07-25 06:10] LABS: VBG PH 7.384 (7.31-7.41)
[2021-07-25] MEDS: PANTOPRAZOLE 40 MG VIAL IVP SCH (06:10)
[2021-07-25] MEDS: chlordiazePOXIDE 25 MG CAPSULE PO SCH ×2 (06:10→21:12)
[2021-07-25 06:11] LABS: CALCIUM, IONIZED 1.19 mmol/L (1.15-1.33)
[2021-07-25 06:18] LABS: CALCIUM 8.6 mg/dL (8.5-10.3); CREATININE 0.6 mg/dL (0.6-1.2); MAGNESIUM 2.1 mg/dL (1.7-2.8); PHOSPHORUS 2.8 mg/dL (2.5-4.6); POTASSIUM 3.7 mmol/L (3.5-5.0)
[2021-07-25] MEDS: INSULIN ASPART 300 UNIT/3 ML PEN SUBQ SCH ×4 (11:01→21:12)
[2021-07-25] MEDS: allopurinoL 100 MG TABLET PO SCH (11:08)
[2021-07-25] MEDS: atenoloL 25 MG TABLET PO SCH (11:08)
[2021-07-25] MEDS: THIAMINE 100 MG TABLET PO SCH (11:08)
[2021-07-25] MEDS: SODIUM CHLORIDE FLUSH 0.9% 10 ML SYRINGE IVP SCH ×2 (11:08→16:43)
--- NOTE | 2021-07-25 16:08 | PROVIDER PROGRESS NOTE ---
Assessment/Plan - Problem List (1) Hyponatremia Assessment/Plan: This was likely hypovolemic hyponatremia secondary to HCTZ and free water excess. Sodium has improved daily. We have reduced the rate of normal saline. Will slowly transition from NS to oral hydration. HCTZ on hold The patient can be transferred out of the ICU today. Follow BMP daily (2) Alcohol abuse The patient drinks about six 16-ounce cans of beer daily. He also drinks about 1/5 of vodka every 2 days. He himself was looking for inpatient alcohol detox which prompted this visit to the ED and then hospitalization. He is getting iv Thiamine his iv fluids. Today I updated the daughter Nabila ([phone]) on his condition and his progress amd improvement. (3) Alcohol withdrawal Impression: This initial concern was for alcohol withdrawal, since he was delirious and tremulous. He has done quite well since being put on Librium. We are tapering the dose down and will plan for twice daily dosing today. Social work will discuss further treatment options with him. Qualifiers: Complication of substance-induced condition: with delirium Qualified Code(s): F10.231 - Alcohol dependence with withdrawal delirium (4) Alcoholic hepatitis Impression: His LFTs are improving. We discussed the importance of alcohol cessation and he appears motivated to change this. Qualifiers: Ascites presence: without ascites Qualified Code(s): K70.10 - Alcoholic hepatitis without ascites (5) Thrombocytopenia Impression: This is secondary to his liver disease. There has been no evidence of bleeding. We will continue to monitor CBC. (6) Pancreatitis Impression: This has resolved. His lipase is now within normal limits and he is tolerating a diet. We will advance his diet further. Qualifiers: Chronicity: acute Pancreatitis type: alcohol induced Acute pancreatitis complication: unspecified Qualified Code(s): K85.20 - Alcohol induced acute pancreatitis without necrosis or infection (7) Leukocytosis Impression: This has resolved. This was likely reactive in nature and due to h emoconcentration. (8) Hypokalemia Impression: This has resolved. - Current Meds Current Meds: Current Medications Generic Name Dose Route Start Last Admin Trade Name Freq PRN Reason Stop Dose Admin Allopurinol 100 mg 07/22/21 09:00 07/25/21 11:08 Allopurinol 100 Mg Tablet PO 100 mg DAILY [facility] Administration Atenolol 50 mg 12/25/21 09:00 07/25/21 11:08 Atenolol 25 Mg Tablet PO 50 mg DAILY [facility] Administration Calcium Carbonate/Glycine 500 mg 07/22/21 01:03 07/25/21 00:34 Calcium Carbonate Chew 500 Mg Tablet PO 500 mg TID PRN Administration Heartburn Sodium Chloride 500 mls @ 20 mls/hr 07/22/21 22:22 07/24/21 03:00 Normal Saline 0.9% IV Infused Q24H PRN Infusion TKO RATE Insulin Aspart 1 - 9 unit 07/23/21 17:00 07/25/21 11:41 Insulin Aspart 300 Unit/3 Ml Pen SUBQ 3 unit 0800,1200,1700,2100 [facility] Administration Protocol Lorazepam 1 mg 07/21/21 22:09 07/23/21 14:55 Lorazepam 2 Mg/Ml Vial IVP 1 mg Q30M PRN Administration CIWA >8 Protocol Sodium Chloride 10 ml 07/22/21 01:00 07/25/21 11:08 Sodium Chloride Flush 0.9% 10 Ml Syringe IVP 10 ml 0100,0900,1700 [facility] Administration Sodium Chloride 20 ml 07/22/21 22:22 07/25/21 04:58 Sodium Chloride Flush 0.9% 10 Ml Syringe IVP 20 ml PRN PRN Administration After Blood Draw Thiamine HCl 100 mg 07/22/21 09:00 07/25/21 11:08 Thiamine 100 Mg Tablet PO 100 mg DAILY [facility] Administration - Lab Result Fish Bone Diagrams: 07/25/21 05:00 07/25/21 05:00 - Additional Planning My Orders: My Active Orders 07/25/21 21:00 [email or web address] [Librium] 25 mg PO BID Subjective - Subjective Patient Reports: Feeling Better (No abdominal pain or nausea as at admission. He is tolerating a diet.) Nursing Reports: Sedated (He has slow speech and eyes are half closed, he speaks in full sentences but is extremely lethargic appearing.) Objective Vital Signs: Vital Signs - 24 hr 07/24/21 07/24/21 07/24/21 17:00 18:00 19:00 Temperature Heart Rate [ 78 78 80 Brachial] Respiratory 20 15 20 Rate Blood Pressure 161/82 H 156/75 H 137/66 H [Right Brachial artery] O2 Saturation 100 98 100 07/24/21 07/24/21 07/24/21 20:00 21:00 22:00 Temperature 37.2 C Heart Rate [ 76 76 77 Brachial] Respiratory 18 19 19 Rate Blood Pressure 160/76 H 163/82 H 147/62 H [Right Brachial artery] O2 Saturation 100 99 100 07/24/21 07/25/21 07/25/21 23:00 00:00 01:00 Temperature Heart Rate [ 78 75 73 Brachial] Respiratory 15 14 17 Rate Blood Pressure 149/76 H 151/74 H 141/66 H [Right Brachial artery] O2 Saturation 99 97 97 07/25/21 07/25/21 07/25/21 02:00 03:00 04:00 Temperature Heart Rate [ 73 72 72 Brachial] Respiratory 12 14 13 Rate Blood Pressure 147/60 H 153/71 H 162/75 H [Right Brachial artery] O2 Saturation 97 97 97 07/25/21 07/25/21 07/25/21 05:00 06:00 07:00 Temperature 36.9 C Heart Rate [ 76 68 70 Brachial] Respiratory 21 13 14 Rate Blood Pressure 158/82 H 149/78 H 162/78 H [Right Brachial artery] O2 Saturation 98 97 97 07/25/21 07/25/21 07/25/21 08:00 09:00 10:00 Temperature 36.9 C Heart Rate [ 75 79 74 Brachial] Respiratory 16 19 13 Rate Blood Pressure 166/84 H 147/73 H 159/74 H [Right Brachial artery] O2 Saturation 98 99 99 07/25/21 07/25/21 07/25/21 11:00 12:00 13:00 Temperature Heart Rate [ 76 76 74 Brachial] Respiratory 17 17 18 Rate Blood Pressure 171/82 H 161/79 H 157/77 H [Right Brachial artery] O2 Saturation 100 100 100 07/25/21 07/25/21 14:00 15:00 Temperature 36.6 C Heart Rate [ 76 Brachial] Respiratory 15 13 Rate Blood Pressure 160/82 H 145/67 H [Right Brachial artery] O2 Saturation 100 98 Oxygen O2 Source [With Activity] Room air O2 Source Room air I&O (Last 24 Hrs): Intake and Output Totals x24h 07/23/21 07/24/21 07/25/21 23:59 23:59 23:59 Intake Total 3084.5 4759.5 790 Output Total 1880 4659 1325 Balance 1204.5 144.5 -535 General: Alert, Oriented x3, Other (Lethargic.) HEENT: Atraumatic, EOMI, Mucous membr. moist/pink Neck: Supple, No JVD Neuro: Alert, Non Focal, Other (Lethargic) Cardiovascular: Regular rate, No murmurs Respiratory: No respiratory distress, Breath sounds nml Abdomen: Normal bowel sounds, Soft, No tenderness Extremities: No clubbing, No edema - Results Results: Laboratory Results WBC 4.0 x10^3/uL (4.8-10.8) L 07/25/21 05:00 RBC 3.40 10^6/uL (4.70-6.10) L 07/25/21 05:00 Hgb 11.3 g/dL (14.0-18.0) L 07/25/21 05:00 Hct 30.6 % (42.0-52.0) L 07/25/21 05:00 MCV 90.0 fL (80.0-94.0) 07/25/21 05:00 MCH 33.2 pg (27.0-31.0) H 07/25/21 05:00 MCHC 36.9 g/dL (32.0-36.0) H 07/25/21 05:00 RDW 12.6 % (12.0-15.0) 07/25/21 05:00 Plt Count 104 10^3/uL (130-450) L 07/25/21 05:00 MPV 9.0 fL (7.4-11.4) 07/25/21 05:00 Neut # (Auto) 2.2 10^3/uL (1.5-6.6) 07/25/21 05:00 Lymph # (Auto) 1.0 10^3/uL (1.5-3.5) L 07/25/21 05:00 [place] # (Auto) 0.7 10^3/uL (0.0-1.0) 07/25/21 05:00 Eos # (Auto) 0.0 10^3/uL (0.0-0.7) 07/25/21 05:00 Baso # (Auto) 0.0 10^3/uL (0.0-0.1) 07/25/21 05:00 Absolute Nucleated RBC 0.00 x10^3/uL 07/25/21 05:00 Total Counted 100 07/23/21 04:59 Band Neuts % (Manual) 0 % (0-10) 07/23/21 04:59 Abnorm Lymph % (Manual) 0 % 07/23/21 04:59 Nucleated RBC % 0.0 /100WBC 07/25/21 05:00 Neutrophils # (Manual) 7.9 10^3/uL (1.5-6.6) H 07/23/21 04:59 Lymphocytes # (Manual) 0.9 10^3/uL (1.5-3.5) L 07/23/21 04:59 Monocytes # (Manual) 1.0 10^3/uL (0.0-1.0) 07/23/21 04:59 Eosinophils # (Manual) 0.0 10^3/uL (0-0.7) 07/23/21 04:59 Basophils # (Manual) 0.0 10^3/uL (0-0.1) 07/23/21 04:59 Differential Comment MANUAL DIFFERENTIAL 07/23/21 04:59 Manual Slide Review Indicated 07/22/21 07:21 WBC Morphology NORMAL APPEARANCE (NORMAL) 07/23/21 04:59 Platelet Estimate DECREASED (<130,000) (NORMAL) 07/23/21 04:59 Platelet Morphology NORMAL APPEARANCE (NORMAL) 07/23/21 04:59 RBC Morph Micro Appear NORMAL APPEARANCE (NORMAL) 07/23/21 04:59 PT 12.7 secs (9.9-12.6) H 07/21/21 20:05 INR 1.1 (0.8-1.2) 07/21/21 20:05 VBG pH 7.384 (7.31-7.41) 07/25/21 05:00 Ionized Calcium 1.19 mmol/L (1.15-1.33) 07/25/21 05:00 Sodium 129 mmol/L (135-145) L 07/25/21 05:00 Potassium 3.7 mmol/L (3.5-5.0) 07/25/21 05:00 Chloride 95 mmol/L (101-111) L 07/25/21 05:00 Carbon Dioxide 27 mmol/L (21-32) 07/25/21 05:00 Anion Gap 7.0 (6-13) 07/25/21 05:00 BUN 7 mg/dL (6-20) 07/25/21 05:00 Creatinine 0.6 mg/dL (0.6-1.2) 07/25/21 05:00 Estimated GFR (MDRD) 135 (>89) 07/25/21 05:00 Glucose 155 mg/dL (70-100) H 07/25/21 05:00 POC Whole Bld Glucose 184 mg/dL (70 - 100) H 07/25/21 11:34 Estimat Average Glucose 128 mg/dL (70-100) H 07/23/21 04:59 Hemoglobin A1c % 6.1 % (4.27-6.07) H 07/23/21 04:59 Lactic Acid 1.5 mmol/L (0.5-2.2) 07/22/21 07:21 Calcium 8.6 mg/dL (8.5-10.3) 07/25/21 05:00 Phosphorus 2.8 mg/dL (2.5-4.6) 07/25/21 05:00 Magnesium 2.1 mg/dL (1.7-2.8) 07/25/21 05:00 Total Bilirubin 3.3 mg/dL (0.2-1.0) H 07/24/21 04:45 Direct Bilirubin 2.0 mg/dL (0.1-0.5) H 07/24/21 04:45 AST 152 IU/L (10-42) H 07/24/21 04:45 ALT 59 IU/L (10-60) 07/24/21 04:45 Alkaline Phosphatase 177 IU/L (42-121) H 07/24/21 04:45 Total Protein 6.0 g/dL (6.7-8.2) L 07/24/21 04:45 Albumin 2.6 g/dL (3.2-5.5) L 07/24/21 04:45 Globulin 3.4 g/dL (2.1-4.2) 07/24/21 04:45 Albumin/Globulin Ratio 1.0 (1.0-2.2) 07/21/21 22:24 Lipase 80 U/L (22-51) H 07/24/21 04:45 Urine Color DARK YELLOW 07/22/21 01:30 Urine Clarity CLEAR (CLEAR) 07/22/21 01:30 Urine pH 6.0 PH (5.0-7.5) 07/22/21 01:30 Ur Specific [place] >=1.030 (1.002-1.030) H 07/22/21 01:30 Urine Protein TRACE mg/dL (NEGATIVE) 07/22/21 01:30 Urine Glucose (UA) NEGATIVE mg/dL (NEGATIVE) 07/22/21 01:30 Urine Ketones TRACE mg/dL (NEGATIVE) 07/22/21 01:30 Urine Occult Blood TRACE-INTA (NEGATIVE) 07/22/21 01:30 Urine Nitrite NEGATIVE (NEGATIVE) 07/22/21 01:30 Urine Bilirubin NEGATIVE (NEGATIVE) 07/22/21 01:30 Urine Urobilinogen 0.2 (NORMAL) E.U./dL (NORMAL) 07/22/21 01:30 Ur Leukocyte Esterase NEGATIVE (NEGATIVE) 07/22/21 01:30 Urine RBC 0-5 /HPF (0-5) 07/22/21 01:30 Urine WBC 0-3 /HPF (0-3) 07/22/21 01:30 Ur Squamous Epith Cells RARE Squamous (<= Few) 07/22/21 01:30 Urine Bacteria Few /HPF (None Seen) 07/22/21 01:30 Urine Mucus Few Strands 07/22/21 01:30 Nasal Adenovirus (PCR) NOT DETECTED 07/21/21 20:14 Nasal B. parapertussis DNA (PCR) NOT DETECTED 07/21/21 20:14 Nasal Coronavir 229E PCR NOT DETECTED 07/21/21 20:14 Nasal Coronavir HKU1 PCR NOT DETECTED 07/21/21 20:14 Nasal Coronavir NL63 PCR NOT DETECTED 07/21/21 20:14 Nasal Coronavir OC43 PCR NOT DETECTED 07/21/21 20:14 Nasal Enterovir/Rhinovir PCR NOT DETECTED 07/21/21 20:14 Nasal Influenza B PCR NOT DETECTED 07/21/21 20:14 Nasal Influenza A PCR NOT DETECTED 07/21/21 20:14 Nasal Parainfluen 1 PCR NOT DETECTED 07/21/21 20:14 Nasal Parainfluen 2 PCR NOT DETECTED 07/21/21 20:14 Nasal Parainfluen 3 PCR NOT DETECTED 07/21/21 20:14 Nasal Parainfluen 4 PCR NOT DETECTED 07/21/21 20:14 Nasal RSV (PCR) NOT DETECTED 07/21/21 20:14 Nasal Screen MRSA (PCR) NEGATIVE (NEGATIVE) 07/21/21 23:25 Nasal B.pertussis DNA PCR NOT DETECTED 07/21/21 20:14 Nasal C.pneumoniae (PCR) NOT DETECTED 07/21/21 20:14 Caleb Human Metapneumo PCR NOT DETECTED 07/21/21 20:14 Nasal M.pneumoniae (PCR) NOT DETECTED 07/21/21 20:14 Nasal SARS-CoV-2 (PCR) NOT DETECTED 07/21/21 20:14 Urine Opiates Screen NEGATIVE (NEGATIVE) 07/22/21 01:30 Ur Oxycodone Screen NEGATIVE (NEGATIVE) 07/22/21 01:30 Urine Methadone Screen NEGATIVE (NEGATIVE) 07/22/21 01:30 Ur Propoxyphene Screen NEGATIVE (NEGATIVE) 07/22/21 01:30 Ur Barbiturates Screen NEGATIVE (NEGATIVE) 07/22/21 01:30 Ur Tricyclics Screen NEGATIVE (NEGATIVE) 07/22/21 01:30 Ur Phencyclidine Scrn NEGATIVE (NEGATIVE) 07/22/21 01:30 Ur Amphetamine Screen NEGATIVE (NEGATIVE) 07/22/21 01:30 U Methamphetamines Scrn NEGATIVE (NEGATIVE) 07/22/21 01:30 U Benzodiazepines Scrn POSITIVE (NEGATIVE) H 07/22/21 01:30 Urine Cocaine Screen NEGATIVE (NEGATIVE) 07/22/21 01:30 U Cannabinoids Screen NEGATIVE (NEGATIVE) 07/22/21 01:30 Ethyl Alcohol 142.2 mg/dL 07/21/21 20:05
[2021-07-26] MEDS: SODIUM CHLORIDE FLUSH 0.9% 10 ML SYRINGE IVP PRN ×2 (05:28→23:54)
[2021-07-26] MEDS: SODIUM CHLORIDE FLUSH 0.9% 10 ML SYRINGE IVP SCH ×4 (05:29→23:53)
[2021-07-26 05:39] LABS: CALCIUM, IONIZED 1.18 mmol/L (1.15-1.33); VBG PH 7.42 (7.31-7.41)
[2021-07-26 05:40] LABS: BASOPHILS % (AUTO) 0.8 %; EOSINOPHILS # (AUTO) 0.1 10^3/uL (0.0-0.7); EOSINOPHILS % (AUTO) 1.8 %; HCT - HEMATOCRIT 32.2 % (42.0-52.0); HGB - HEMOGLOBIN 11.3 g/dL (14.0-18.0); LYMPHOCYTES # (AUTO) 1.2 10^3/uL (1.5-3.5); MEAN CORPUSCULAR HEMOGLOBIN 32.1 pg (27.0-31.0); MEAN CORPUSCULAR HGB CONC 35.1 g/dL (32.0-36.0); MEAN CORPUSCULAR VOLUME 91.5 fL (80.0-94.0); MEAN PLATELET VOLUME 8.3 fL (7.4-11.4); MONOCYTES # (AUTO) 0.7 10^3/uL (0.0-1.0); MONOCYTES % (AUTO) 18.4 %; NEUTROPHILS # (AUTO) 1.7 10^3/uL (1.5-6.6); NEUTROPHILS % (AUTO) 45.4 %; PLT - PLATELET COUNT 94 10^3/uL (130-450); RED BLOOD COUNT 3.52 10^6/uL (4.70-6.10); RED CELL DISTRIBUTION WIDTH 12.8 % (12.0-15.0); WHITE BLOOD COUNT 3.8 x10^3/uL (4.8-10.8)
[2021-07-26 05:53] LABS: ALBUMIN 2.8 g/dL (3.2-5.5); BILIRUBIN,DIRECT 0.7 mg/dL (0.1-0.5); BILIRUBIN,TOTAL 1.5 mg/dL (0.2-1.0); CALCIUM 8.9 mg/dL (8.5-10.3); CREATININE 0.6 mg/dL (0.6-1.2); MAGNESIUM 1.9 mg/dL (1.7-2.8); PHOSPHORUS 4.2 mg/dL (2.5-4.6); TOTAL PROTEIN 6.5 g/dL (6.7-8.2)
[2021-07-26] MEDS: PANTOPRAZOLE 40 MG TABLET PO SCH (06:36)
[2021-07-26] MEDS: allopurinoL 100 MG TABLET PO SCH (09:34)
[2021-07-26] MEDS: polyethylene glycoL 3350 17 GM PACKET PO SCH (09:34)
[2021-07-26] MEDS: atenoloL 25 MG TABLET PO SCH (09:35)
[2021-07-26] MEDS: chlordiazePOXIDE 25 MG CAPSULE PO SCH (09:37)
[2021-07-26] MEDS: THIAMINE 100 MG TABLET PO SCH (09:38)
[2021-07-26] MEDS: INSULIN ASPART 300 UNIT/3 ML PEN SUBQ SCH ×4 (09:49→20:35)
--- NOTE | 2021-07-26 17:23 | PROVIDER PROGRESS NOTE ---
Assessment/Plan - Problem List (1) Hyponatremia Assessment/Plan: This was likely hypovolemic hyponatremia secondary to using HCTZ and free water excess. Sodium has improved daily. He c/o thirst, wants more water. This suggests he may have beer potomania We have reduced the rate of normal saline. Will slowly transition from NS to just oral hydration. HCTZ to remain on hold Will check urine sodium, for poss SIADH Follow BMP daily (2) Alcohol abuse The patient drinks about six 16-ounce cans of beer daily. He also drinks about 1/5 of vodka every 2 days. This suggests he may have beer potomania He himself was looking for inpatient alcohol detox which prompted this visit to the ED and then hospitalization. He was getting iv Thiamine his iv fluids. Today will start daily po Thiamine Will check ammonia level. Will start with PT as he is less lethargic. (3) Alcohol withdrawal Impression: This initial concern was for alcohol withdrawal, since he was delirious and tremulous. He has done quite well since being put on Librium. We are tapering the dose down and will check his serum ammonia level. Social work will discuss further treatment options with him. Qualifiers: Complication of substance-induced condition: with delirium Qualified Code(s): F10.231 - Alcohol dependence with withdrawal delirium (4) Alcoholic hepatitis Impression: His LFTs are improving. We discussed the importance of alcohol cessation and he appears motivated to change this. Qualifiers: Ascites presence: without ascites Qualified Code(s): K70.10 - Alcoholic hepatitis without ascites (5) Thrombocytopenia Impression: This is secondary to his liver disease. There has been no evidence of bleeding. We will continue to monitor CBC. (6) Pancreatitis Impression: This has resolved. His lipase is now within normal limits and he is tolerating a diet. We will advance his diet further. Qualifiers: Chronicity: acute Pancreatitis type: alcohol induced Acute pancreatitis complication: unspecified Qualified Code(s): K85.20 - Alcohol induced acute pancreatitis without necrosis or infection (7) Leukocytosis Impression: This has resolved. This was likely reactive in nature and due to hemoconcentration. (8) Hypokalemia Impression: This has resolved. - Current Meds Current Meds: Current Medications Generic Name Dose Route Start Last Admin Trade Name Freq PRN Reason Stop Dose Admin Allopurinol 100 mg 07/22/21 09:00 07/26/21 09:34 Allopurinol 100 Mg Tablet PO 100 mg DAILY PANTERA Administration Atenolol 50 mg 07/22/21 09:00 07/26/21 09:35 Atenolol 25 Mg Tablet PO 50 mg DAILY PANTERA Administration Calcium Carbonate/Glycine 500 mg 07/22/21 01:03 07/25/21 00:34 Calcium Carbonate Chew 500 Mg Tablet PO 500 mg TID PRN Administration Heartburn Sodium Chloride 500 mls @ 20 mls/hr 07/22/21 22:22 07/24/21 03:00 Normal Saline 0.9% IV Infused Q24H PRN Infusion TKO RATE Insulin Aspart 2 - 10 unit 07/26/21 08:00 07/26/21 16:36 Insulin Aspart 300 Unit/3 Ml Pen SUBQ 2 unit 0800,1200,1700,2100 PANTERA Administration Protocol Lorazepam 1 mg 07/21/21 22:09 07/23/21 14:55 Lorazepam 2 Mg/Ml Vial IVP 1 mg Q30M PRN Administration CIWA >8 Protocol Pantoprazole Sodium 40 mg 07/26/21 07:00 07/26/21 06:36 Pantoprazole 40 Mg Tablet PO 40 mg QDAC PANTERA Administration Polyethylene Glycol 17 gm 07/26/21 09:00 07/26/21 09:34 Polyethylene Glycol 3350 17 Gm Packet PO 17 gm DAILY PANTERA Administration Sodium Chloride 10 ml 07/22/21 01:00 07/26/21 16:36 Sodium Chloride Flush 0.9% 10 Ml Syringe IVP 10 ml 0100,0900,1700 PANTERA Administration Sodium Chloride 20 ml 07/22/21 22:22 07/26/21 05:28 Sodium Chloride Flush 0.9% 10 Ml Syringe IVP 20 ml PRN PRN Administration After Blood Draw Thiamine HCl 100 mg 07/22/21 09:00 07/26/21 09:38 Thiamine 100 Mg Tablet PO 100 mg DAILY PANTERA Administration - Lab Result Fish Bone Diagrams: 07/26/21 05:20 07/26/21 05:20 - Additional Planning My Orders: My Active Orders 07/26/21 CREATININE,URINE [UC] Routine SODIUM, URINE [UC] Routine 07/26/21 08:00 Insulin Aspart [NovoLOG] 2 - 10 unit SUBQ 0800,1200,1700,2100 07/26/21 09:00 polyethylene glycoL 3350 [Miralax] 17 gm PO DAILY 07/26/21 21:00 chlordiazePOXIDE [Librium] 10 mg PO BID 07/27/21 05:00 LIVER PANEL [CHEM] DAILYLAB 07/27/21 08:00 Multivitamin W/Minerals [Theragran M] 1 tab PO DAILYWM Subjective - Subjective Patient Reports: Fatigue, Other (Hoarseness) Objective Vital Signs: Vital Signs - 24 hr 07/25/21 07/25/21 07/26/21 21:00 23:45 04:19 Temperature 36.9 C 36.7 C Heart Rate [ 74 73 68 Brachial] Respiratory 19 17 12 Rate Blood Pressure 162/77 H [Left Brachial artery] Blood Pressure 159/73 H 144/79 H [Right Brachial artery] O2 Saturation 98 98 100 07/26/21 07/26/21 07/26/21 07:39 11:34 16:25 Temperature 36.7 C 36.7 C 36.9 C Heart Rate [ 73 78 73 Brachial] Respiratory 15 18 18 Rate Blood Pressure 156/75 H [Left Brachial artery] Blood Pressure 150/91 H 136/79 H [Right Brachial artery] O2 Saturation 98 99 100 Oxygen O2 Source [With Activity] Room air O2 Source Room air I&O (Last 24 Hrs): Intake and Output Totals x24h 07/24/21 07/25/21 07/26/21 23:59 23:59 23:59 Intake Total 4759.5 1030 640 Output Total 4615 2025 1600 Balance 144.5 -995 -960 General: Alert, Other (Bradykinetic and slow speech) HEENT: Mucous membr. moist/pink, Other (Throat not red, no swelling or mucous seen) Neck: Supple, No JVD Neuro: Alert, Other (Resting jhead tremor, very bradykinetic and has slow speech) Cardiovascular: Regular rate, No murmurs Respiratory: No respiratory distress, Breath sounds nml Abdomen: Normal bowel sounds, Soft, No tenderness Extremities: No edema, No tenderness/swelling - Results Results: Laboratory Results WBC 3.8 x10^3/uL (4.8-10.8) L 07/26/21 05:20 RBC 3.52 10^6/uL (4.70-6.10) L 07/26/21 05:20 Hgb 11.3 g/dL (14.0-18.0) L 07/26/21 05:20 Hct 32.2 % (42.0-52.0) L 07/26/21 05:20 MCV 91.5 fL (80.0-94.0) 07/26/21 05:20 MCH 32.1 pg (27.0-31.0) H 07/26/21 05:20 MCHC 35.1 g/dL (32.0-36.0) 07/26/21 05:20 RDW 12.8 % (12.0-15.0) 07/26/21 05:20 Plt Count 94 10^3/uL (130-450) L 07/26/21 05:20 MPV 8.3 fL (7.4-11.4) 07/26/21 05:20 Neut # (Auto) 1.7 10^3/uL (1.5-6.6) 07/26/21 05:20 Lymph # (Auto) 1.2 10^3/uL (1.5-3.5) L 07/26/21 05:20 [place] # (Auto) 0.7 10^3/uL (0.0-1.0) 07/26/21 05:20 Eos # (Auto) 0.1 10^3/uL (0.0-0.7) 07/26/21 05:20 Baso # (Auto) 0.0 10^3/uL (0.0-0.1) 07/26/21 05:20 Absolute Nucleated RBC 0.00 x10^3/uL 07/26/21 05:20 Total Counted 100 07/23/21 04:59 Band Neuts % (Manual) 0 % (0-10) 07/23/21 04:59 Abnorm Lymph % (Manual) 0 % 07/23/21 04:59 Nucleated RBC % 0.0 /100WBC 07/26/21 05:20 Neutrophils # (Manual) 7.9 10^3/uL (1.5-6.6) H 07/23/21 04:59 Lymphocytes # (Manual) 0.9 10^3/uL (1.5-3.5) L 07/23/21 04:59 Monocytes # (Manual) 1.0 10^3/uL (0.0-1.0) 07/23/21 04:59 Eosinophils # (Manual) 0.0 10^3/uL (0-0.7) 07/23/21 04:59 Basophils # (Manual) 0.0 10^3/uL (0-0.1) 07/23/21 04:59 Differential Comment MANUAL DIFFERENTIAL 07/23/21 04:59 Manual Slide Review Indicated 07/22/21 07:21 WBC Morphology NORMAL APPEARANCE (NORMAL) 07/23/21 04:59 Platelet Estimate DECREASED (<130,000) (NORMAL) 07/23/21 04:59 Platelet Morphology NORMAL APPEARANCE (NORMAL) 07/23/21 04:59 RBC Morph Micro Appear NORMAL APPEARANCE (NORMAL) 07/23/21 04:59 PT 12.7 secs (9.9-12.6) H 07/21/21 20:05 INR 1.1 (0.8-1.2) 07/21/21 20:05 VBG pH 7.420 (7.31-7.41) H 07/26/21 05:20 Ionized Calcium 1.18 mmol/L (1.15-1.33) 07/26/21 05:20 Sodium 129 mmol/L (135-145) L 07/26/21 05:20 Potassium 4.0 mmol/L (3.5-5.0) 07/26/21 05:20 Chloride 95 mmol/L (101-111) L 07/26/21 05:20 Carbon Dioxide 26 mmol/L (21-32) 07/26/21 05:20 Anion Gap 8.0 (6-13) 07/26/21 05:20 BUN 10 mg/dL (6-20) 07/26/21 05:20 Creatinine 0.6 mg/dL (0.6-1.2) 07/26/21 05:20 Estimated GFR (MDRD) 135 (>89) 07/26/21 05:20 Glucose 172 mg/dL (70-100) H 07/26/21 05:20 POC Whole Bld Glucose 162 mg/dL (70 - 100) H 07/26/21 16:28 Estimat Average Glucose 128 mg/dL (70-100) H 07/23/21 04:59 Hemoglobin A1c % 6.1 % (4.27-6.07) H 07/23/21 04:59 Lactic Acid 1.5 mmol/L (0.5-2.2) 07/22/21 07:21 Calcium 8.9 mg/dL (8.5-10.3) 07/26/21 05:20 Phosphorus 4.2 mg/dL (2.5-4.6) 07/26/21 05:20 Magnesium 1.9 mg/dL (1.7-2.8) 07/26/21 05:20 Total Bilirubin 1.5 mg/dL (0.2-1.0) H 07/26/21 05:20 Direct Bilirubin 0.7 mg/dL (0.1-0.5) H 07/26/21 05:20 AST 66 IU/L (10-42) H 07/26/21 05:20 ALT 58 IU/L (10-60) 07/26/21 05:20 Alkaline Phosphatase 276 IU/L (42-121) H 07/26/21 05:20 Total Protein 6.5 g/dL (6.7-8.2) L 07/26/21 05:20 Albumin 2.8 g/dL (3.2-5.5) L 07/26/21 05:20 Globulin 3.7 g/dL (2.1-4.2) 07/26/21 05:20 Albumin/Globulin Ratio 1.0 (1.0-2.2) 07/21/21 22:24 Lipase 117 U/L (22-51) H 07/26/21 05:20 Urine Color DARK YELLOW 07/22/21 01:30 Urine Clarity CLEAR (CLEAR) 07/22/21 01:30 Urine pH 6.0 PH (5.0-7.5) 07/22/21 01:30 Ur Specific [place] >=1.030 (1.002-1.030) H 07/22/21 01:30 Urine Protein TRACE mg/dL (NEGATIVE) 07/22/21 01:30 Urine Glucose (UA) NEGATIVE mg/dL (NEGATIVE) 07/22/21 01:30 Urine Ketones TRACE mg/dL (NEGATIVE) 07/22/21 01:30 Urine Occult Blood TRACE-INTA (NEGATIVE) 07/22/21 01:30 Urine Nitrite NEGATIVE (NEGATIVE) 07/22/21 01:30 Urine Bilirubin NEGATIVE (NEGATIVE) 07/22/21 01:30 Urine Urobilinogen 0.2 (NORMAL) E.U./dL (NORMAL) 07/22/21 01:30 Ur Leukocyte Esterase NEGATIVE (NEGATIVE) 07/22/21 01:30 Urine RBC 0-5 /HPF (0-5) 07/22/21 01:30 Urine WBC 0-3 /HPF (0-3) 07/22/21 01:30 Ur Squamous Epith Cells RARE Squamous (<= Few) 07/22/21 01:30 Urine Bacteria Few /HPF (None Seen) 07/22/21 01:30 Urine Mucus Few Strands 07/22/21 01:30 Nasal Adenovirus (PCR) NOT DETECTED 07/21/21 20:14 Nasal B. parapertussis DNA (PCR) NOT DETECTED 07/21/21 20:14 Nasal Coronavir 229E PCR NOT DETECTED 07/21/21 20:14 Nasal Coronavir HKU1 PCR NOT DETECTED 07/21/21 20:14 Nasal Coronavir NL63 PCR NOT DETECTED 07/21/21 20:14 Nasal Coronavir OC43 PCR NOT DETECTED 07/21/21 20:14 Nasal Enterovir/Rhinovir PCR NOT DETECTED 07/21/21 20:14 Nasal Influenza B PCR NOT DETECTED 07/21/21 20:14 Nasal Influenza A PCR NOT DETECTED 07/21/21 20:14 Nasal Parainfluen 1 PCR NOT DETECTED 07/21/21 20:14 Nasal Parainfluen 2 PCR NOT DETECTED 07/21/21 20:14 Nasal Parainfluen 3 PCR NOT DETECTED 07/21/21 20:14 Nasal Parainfluen 4 PCR NOT DETECTED 07/21/21 20:14 Nasal RSV (PCR) NOT DETECTED 07/21/21 20:14 Nasal Screen MRSA (PCR) NEGATIVE (NEGATIVE) 07/21/21 23:25 Nasal B.pertussis DNA PCR NOT DETECTED 07/21/21 20:14 Nasal C.pneumoniae (PCR) NOT DETECTED 07/21/21 20:14 [place] Human Metapneumo PCR NOT DETECTED 07/21/21 20:14 Nasal M.pneumoniae (PCR) NOT DETECTED 07/21/21 20:14 Nasal SARS-CoV-2 (PCR) NOT DETECTED 07/21/21 20:14 Urine Opiates Screen NEGATIVE (NEGATIVE) 07/22/21 01:30 Ur Oxycodone Screen NEGATIVE (NEGATIVE) 07/22/21 01:30 Urine Methadone Screen NEGATIVE (NEGATIVE) 07/22/21 01:30 Ur Propoxyphene Screen NEGATIVE (NEGATIVE) 07/22/21 01:30 Ur Barbiturates Screen NEGATIVE (NEGATIVE) 07/22/21 01:30 Ur Tricyclics Screen NEGATIVE (NEGATIVE) 07/22/21 01:30 Ur Phencyclidine Scrn NEGATIVE (NEGATIVE) 07/22/21 01:30 Ur Amphetamine Screen NEGATIVE (NEGATIVE) 07/22/21 01:30 U Methamphetamines Scrn NEGATIVE (NEGATIVE) 07/22/21 01:30 U Benzodiazepines Scrn POSITIVE (NEGATIVE) H 07/22/21 01:30 Urine Cocaine Screen NEGATIVE (NEGATIVE) 07/22/21 01:30 U Cannabinoids Screen NEGATIVE (NEGATIVE) 07/22/21 01:30 Ethyl Alcohol 142.2 mg/dL 07/21/21 20:05
[2021-07-26] MEDS: chlordiazePOXIDE 5 MG CAPSULE PO SCH (20:35)
[2021-07-27 05:47] LABS: BASOPHILS % (AUTO) 1.1 %; EOSINOPHILS # (AUTO) 0.1 10^3/uL (0.0-0.7); HGB - HEMOGLOBIN 11.7 g/dL (14.0-18.0); LYMPHOCYTES # (AUTO) 1.1 10^3/uL (1.5-3.5); LYMPHOCYTES % (AUTO) 30.4 %; MEAN CORPUSCULAR HEMOGLOBIN 31.8 pg (27.0-31.0); MEAN CORPUSCULAR HGB CONC 34.4 g/dL (32.0-36.0); MEAN CORPUSCULAR VOLUME 92.4 fL (80.0-94.0); MEAN PLATELET VOLUME 8.6 fL (7.4-11.4); MONOCYTES # (AUTO) 0.7 10^3/uL (0.0-1.0); MONOCYTES % (AUTO) 20.5 %; NEUTROPHILS # (AUTO) 1.5 10^3/uL (1.5-6.6); NEUTROPHILS % (AUTO) 43.2 %; PLT - PLATELET COUNT 127 10^3/uL (130-450); RED BLOOD COUNT 3.68 10^6/uL (4.70-6.10); RED CELL DISTRIBUTION WIDTH 12.8 % (12.0-15.0); WHITE BLOOD COUNT 3.5 x10^3/uL (4.8-10.8)
[2021-07-27 05:56] LABS: ALBUMIN 2.8 g/dL (3.2-5.5); BILIRUBIN,DIRECT 0.5 mg/dL (0.1-0.5); BILIRUBIN,TOTAL 1.1 mg/dL (0.2-1.0); CALCIUM 8.9 mg/dL (8.5-10.3); CREATININE 0.5 mg/dL (0.6-1.2); MAGNESIUM 1.9 mg/dL (1.7-2.8); PHOSPHORUS 4.1 mg/dL (2.5-4.6); TOTAL PROTEIN 6.8 g/dL (6.7-8.2)
[2021-07-27] MEDS: PANTOPRAZOLE 40 MG TABLET PO SCH (06:09)
[2021-07-27 08:07] LABS: CREATININE,URINE 73.2 mg/dL
[2021-07-27] MEDS: INSULIN ASPART 300 UNIT/3 ML PEN SUBQ SCH ×4 (09:20→21:17)
[2021-07-27] MEDS: chlordiazePOXIDE 5 MG CAPSULE PO SCH ×3 (09:31→21:15)
[2021-07-27] MEDS: THIAMINE 100 MG TABLET PO SCH (09:33)
[2021-07-27] MEDS: allopurinoL 100 MG TABLET PO SCH (09:34)
[2021-07-27] MEDS: atenoloL 25 MG TABLET PO SCH (09:35)
[2021-07-27] MEDS: polyethylene glycoL 3350 17 GM PACKET PO SCH (09:37)
[2021-07-27] MEDS: MULTIVITAMIN W/MINERALS TABLET PO SCH (09:42)
[2021-07-27] MEDS: SODIUM CHLORIDE FLUSH 0.9% 10 ML SYRINGE IVP SCH ×2 (09:43→17:02)
--- NOTE | 2021-07-27 12:52 | PROVIDER PROGRESS NOTE ---
Assessment/Plan - Problem List (1) Hyponatremia Assessment/Plan: This was likely hypovolemic hyponatremia secondary to using HCTZ and free water excess. Sodium has improved daily. He c/o thirst, wants more water. This suggests he may have had beer potomania We have reduced the rate of normal saline. Will slowly transition from NS to just oral hydration. Will liberalize po total free water per day somewhat HCTZ to remain on hold Will check urine sodium, for poss SIADH Follow BMP daily (2) Diabetes Mellitus Today the patient asked why his "glucose is so high. Is it from lack of exercise"? He has not been on a Diabetic diet, since his diet was advanced. He is getting ss Insulin cioverage here and his admission H&P states he has Type 2 DM and was on no meds. The A1c at admission was 6.1. Will add Metformin 500 mg po bid Will adjust him to a carb-controlled diet (3) Alcohol abuse The patient drinks about six 16-ounce cans of beer daily. He also drinks about 1/5 of vodka every 2 days. This suggests he may have beer potomania He himself was looking for inpatient alcohol detox which prompted this visit to the ED and then hospitalization. He was getting iv Thiamine his iv fluids. Today will start daily po Thiamine Will check ammonia level. Will start with PT as he is less lethargic. (4) Alcohol withdrawal Impression: This initial concern was for alcohol withdrawal, since he was delirious and tremulous. He has done quite well since being put on Librium. We are tapering the dose down and will check his serum ammonia level. Social work will discuss further treatment options with him. Qualifiers: Complication of substance-induced condition: with delirium Qualified Code(s): F10.231 - Alcohol dependence with withdrawal delirium (5) Alcoholic hepatitis Impression: His LFTs are improving. We discussed the importance of alcohol cessation and he appears motivated to change this. Qualifiers: Ascites presence: without ascites Qualified Code(s): K70.10 - Alcoholic hepatitis without ascites (6) Thrombocytopenia Impression: This is secondary to his liver disease. There has been no evidence of bleeding. We will continue to monitor CBC. (7) Pancreatitis Impression: This has resolved. His lipase is now within normal limits and he is tolerating a diet. We will advance his diet further. Qualifiers: Chronicity: acute Pancreatitis type: alcohol induced Acute pancreatitis complication: unspecified Qualified Code(s): K85.20 - Alcohol induced acute pancreatitis without necrosis or infection (8) Leukocytosis Impression: This has resolved. This was likely reactive in nature and due to hemoconcentration. (9) Hypokalemia Impression: This has resolved. - Current Meds Current Meds: Current Medications Generic Name Dose Route Start Last Admin Trade Name Freq PRN Reason Stop Dose Admin Allopurinol 100 mg 07/22/21 09:00 07/27/21 09:34 Allopurinol 100 Mg Tablet PO 100 mg DAILY PANTERA Administration Atenolol 50 mg 07/22/21 09:00 07/27/21 09:35 Atenolol 25 Mg Tablet PO 50 mg DAILY PANTERA Administration Calcium Carbonate/Glycine 500 mg 07/22/21 01:03 07/25/21 00:34 Calcium Carbonate Chew 500 Mg Tablet PO 500 mg TID PRN Administration Heartburn Chlordiazepoxide HCl 10 mg 07/26/21 21:00 07/27/21 09:31 Chlordiazepoxide 5 Mg Capsule PO 10 mg BID PANTERA Administration Sodium Chloride 500 mls @ 20 mls/hr 07/22/21 22:22 07/24/21 03:00 Normal Saline 0.9% IV Infused Q24H PRN Infusion TKO RATE Insulin Aspart 2 - 10 unit 07/26/21 08:00 07/27/21 11:48 Insulin Aspart 300 Unit/3 Ml Pen SUBQ 6 unit 0800,1200,1700,2100 PANTERA Administration Protocol Lorazepam 1 mg 07/21/21 22:09 07/23/21 14:55 Lorazepam 2 Mg/Ml Vial IVP 1 mg Q30M PRN Administration CIWA >8 Protocol Multivitamins/Minerals 1 tab 07/27/21 08:00 07/27/21 09:42 Multivitamin W/Minerals Tablet PO 1 tab DAILYWM PANTERA Administration Pantoprazole Sodium 40 mg 07/26/21 07:00 07/27/21 06:09 Pantoprazole 40 Mg Tablet PO 40 mg QDAC PANTERA Administration Polyethylene Glycol 17 gm 07/26/21 09:00 07/27/21 09:37 Polyethylene Glycol 3350 17 Gm Packet PO 17 gm DAILY PANTERA Administration Sodium Chloride 10 ml 07/22/21 01:00 07/27/21 09:43 Sodium Chloride Flush 0.9% 10 Ml Syringe IVP 10 ml 0100,0900,1700 PANTERA Administration Sodium Chloride 20 ml 07/22/21 22:22 07/26/21 23:54 Sodium Chloride Flush 0.9% 10 Ml Syringe IVP 20 ml PRN PRN Administration After Blood Draw Thiamine HCl 100 mg 07/22/21 09:00 07/27/21 09:33 Thiamine 100 Mg Tablet PO 100 mg DAILY PANTERA Administration - Lab Result Fish Bone Diagrams: 07/27/21 05:19 07/27/21 05:19 - Additional Planning My Orders: My Active Orders 07/26/21 21:00 chlordiazePOXIDE [Librium] 10 mg PO BID 07/27/[address] [ST] Routine Evaluate and Treat OT [OT] Routine 07/27/21 08:00 Multivitamin W/Minerals [Theragran M] 1 tab PO DAILYWM 07/27/21 17:00 metFORMIN [Glucophage] 500 mg PO BIDWM Subjective - Subjective Patient Reports: Fatigue, Other (Asks why his glu is so high. States he is remorseful of "waht he was doing to his body with alcohol.") Objective Vital Signs: Vital Signs - 24 hr 07/26/21 07/26/21 07/26/21 16:25 20:29 23:35 Temperature 36.9 C 36.9 C 36.9 C Heart Rate [ 73 80 78 Brachial] Respiratory 18 20 18 Rate Blood Pressure 156/75 H 157/80 H 136/65 H [Left Brachial artery] Blood Pressure [Right Brachial artery] O2 Saturation 100 99 97 07/27/21 07/27/21 07/27/21 04:09 07:41 11:10 Temperature 36.4 C L 36.9 C 36.3 C L Heart Rate [ 77 79 76 Brachial] Respiratory 18 18 18 Rate Blood Pressure 150/75 H 141/63 H [Left Brachial artery] Blood Pressure 143/66 H [Right Brachial artery] O2 Saturation 98 99 100 Oxygen O2 Source [With Activity] Room air O2 Source Room air I&O (Last 24 Hrs): Intake and Output Totals x24h 07/25/21 07/26/21 07/27/21 23:59 23:59 23:59 Intake Total 1030 1462 715 Output Total 20240 1225 Balance -995 -838 -510 General: Alert, Other (Bradykinetic) HEENT: Atraumatic, Mucous membr. moist/pink, Other (Voice less hoarse than yesterday) Neuro: Alert, Disoriented (He did not know what building this is.), Non Focal, Other (Braykinetic) Cardiovascular: Regular rate, No murmurs Respiratory: No respiratory distress, Breath sounds nml Abdomen: Soft, No tenderness, Other (Obese with pammus) Extremities: No clubbing, No edema, No tenderness/swelling - Results Results: Laboratory Results WBC 3.5 x10^3/uL (4.8-10.8) L 07/27/21 05:19 RBC 3.68 10^6/uL (4.70-6.10) L 07/27/21 05:19 Hgb 11.7 g/dL (14.0-18.0) L 07/27/21 05:19 Hct 34.0 % (42.0-52.0) L 07/27/21 05:19 MCV 92.4 fL (80.0-94.0) 07/27/21 05:19 MCH 31.8 pg (27.0-31.0) H 07/27/21 05:19 MCHC 34.4 g/dL (32.0-36.0) 07/27/21 05:19 RDW 12.8 % (12.0-15.0) 07/27/21 05:19 Plt Count 127 10^3/uL (130-450) L 07/27/21 05:19 MPV 8.6 fL (7.4-11.4) 07/27/21 05:19 Neut # (Auto) 1.5 10^3/uL (1.5-6.6) 07/27/21 05:19 Lymph # (Auto) 1.1 10^3/uL (1.5-3.5) L 07/27/21 05:19 [place] # (Auto) 0.7 10^3/uL (0.0-1.0) 07/27/21 05:19 Eos # (Auto) 0.1 10^3/uL (0.0-0.7) 07/27/21 05:19 Baso # (Auto) 0.0 10^3/uL (0.0-0.1) 07/27/21 05:19 Absolute Nucleated RBC 0.00 x10^3/uL 07/27/21 05:19 Total Counted 100 07/23/21 04:59 Band Neuts % (Manual) 0 % (0-10) 07/23/21 04:59 Abnorm Lymph % (Manual) 0 % 07/23/21 04:59 Nucleated RBC % 0.0 /100WBC 07/27/21 05:19 Neutrophils # (Manual) 7.9 10^3/uL (1.5-6.6) H 07/23/21 04:59 Lymphocytes # (Manual) 0.9 10^3/uL (1.5-3.5) L 07/23/21 04:59 Monocytes # (Manual) 1.0 10^3/uL (0.0-1.0) 07/23/21 04:59 Eosinophils # (Manual) 0.0 10^3/uL (0-0.7) 07/23/21 04:59 Basophils # (Manual) 0.0 10^3/uL (0-0.1) 07/23/21 04:59 Differential Comment MANUAL DIFFERENTIAL 07/23/21 04:59 Manual Slide Review Indicated 07/22/21 07:21 WBC Morphology NORMAL APPEARANCE (NORMAL) 07/23/21 04:59 Platelet Estimate DECREASED (<130,000) (NORMAL) 07/23/21 04:59 Platelet Morphology NORMAL APPEARANCE (NORMAL) 07/23/21 04:59 RBC Morph Micro Appear NORMAL APPEARANCE (NORMAL) 07/23/21 04:59 PT 12.7 secs (9.9-12.6) H 07/21/21 20:05 INR 1.1 (0.8-1.2) 07/21/21 20:05 VBG pH 7.420 (7.31-7.41) H 07/26/21 05:20 Ionized Calcium 1.18 mmol/L (1.15-1.33) 07/26/21 05:20 Sodium 132 mmol/L (135-145) L 07/27/21 05:19 Potassium 4.0 mmol/L (3.5-5.0) 07/27/21 05:19 Chloride 97 mmol/L (101-111) L 07/27/21 05:19 Carbon Dioxide 26 mmol/L (21-32) 07/27/21 05:19 Anion Gap 9.0 (6-13) 07/27/21 05:19 BUN 12 mg/dL (6-20) 07/27/21 05:19 Creatinine 0.5 mg/dL (0.6-1.2) L 07/27/21 05:19 Estimated GFR (MDRD) 167 (>89) 07/27/21 05:19 Glucose 217 mg/dL (70-100) H 07/27/21 05:19 POC Whole Bld Glucose 281 mg/dL (70 - 100) H 07/27/21 11:05 Estimat Average Glucose 128 mg/dL (70-100) H 07/23/21 04:59 Hemoglobin A1c % 6.1 % (4.27-6.07) H 07/23/21 04:59 Lactic Acid 1.5 mmol/L (0.5-2.2) 07/22/21 07:21 Calcium 8.9 mg/dL (8.5-10.3) 07/27/21 05:19 Phosphorus 4.1 mg/dL (2.5-4.6) 07/27/21 05:19 Magnesium 1.9 mg/dL (1.7-2.8) 07/27/21 05:19 Total Bilirubin 1.1 mg/dL (0.2-1.0) H 07/27/21 05:19 Direct Bilirubin 0.5 mg/dL (0.1-0.5) 07/27/21 05:19 AST 56 IU/L (10-42) H 07/27/21 05:19 ALT 56 IU/L (10-60) 07/27/21 05:19 Alkaline Phosphatase 266 IU/L (42-121) H 07/27/21 05:19 Ammonia 14.6 umol/L (7-35) 07/27/21 10:26 Total Protein 6.8 g/dL (6.7-8.2) 07/27/21 05:19 Albumin 2.8 g/dL (3.2-5.5) L 07/27/21 05:19 Globulin 4.0 g/dL (2.1-4.2) 07/27/21 05:19 Albumin/Globulin Ratio 1.0 (1.0-2.2) 07/21/21 22:24 Lipase 117 U/L (22-51) H 07/26/21 05:20 Urine Color DARK YELLOW 07/22/21 01:30 Urine Clarity CLEAR (CLEAR) 07/22/21 01:30 Urine pH 6.0 PH (5.0-7.5) 07/22/21 01:30 Ur Specific [place] >=1.030 (1.002-1.030) H 07/22/21 01:30 Urine Protein TRACE mg/dL (NEGATIVE) 07/22/21 01:30 Urine Glucose (UA) NEGATIVE mg/dL (NEGATIVE) 07/22/21 01:30 Urine Ketones TRACE mg/dL (NEGATIVE) 07/22/21 01:30 Urine Occult Blood TRACE-INTA (NEGATIVE) 07/22/21 01:30 Urine Nitrite NEGATIVE (NEGATIVE) 07/22/21 01:30 Urine Bilirubin NEGATIVE (NEGATIVE) 07/22/21 01:30 Urine Urobilinogen 0.2 (NORMAL) E.U./dL (NORMAL) 07/22/21 01:30 Ur Leukocyte Esterase NEGATIVE (NEGATIVE) 07/22/21 01:30 Urine RBC 0-5 /HPF (0-5) 07/22/21 01:30 Urine WBC 0-3 /HPF (0-3) 07/22/21 01:30 Ur Squamous Epith Cells RARE Squamous (<= Few) 07/22/21 01:30 Urine Bacteria Few /HPF (None Seen) 07/22/21 01:30 Urine Mucus Few Strands 07/22/21 01:30 Urine Osmolality 710 mOsm/kg (50-1200) 07/22/21 01:30 Urine Creatinine 73.2 mg/dL 07/27/21 07:30 Urine Sodium 120.0 mmol/L 07/27/21 07:30 Nasal Adenovirus (PCR) NOT DETECTED 07/21/21 20:14 Nasal B. parapertussis DNA (PCR) NOT DETECTED 07/21/21 20:14 Nasal Coronavir 229E PCR NOT DETECTED 07/21/21 20:14 Nasal Coronavir HKU1 PCR NOT DETECTED 07/21/21 20:14 Nasal Coronavir NL63 PCR NOT DETECTED 07/21/21 20:14 Nasal Coronavir OC43 PCR NOT DETECTED 07/21/21 20:14 Nasal Enterovir/Rhinovir PCR NOT DETECTED 07/21/21 20:14 Nasal Influenza B PCR NOT DETECTED 07/21/21 20:14 Nasal Influenza A PCR NOT DETECTED 07/21/21 20:14 Nasal Parainfluen 1 PCR NOT DETECTED 07/21/21 20:14 Nasal Parainfluen 2 PCR NOT DETECTED 07/21/21 20:14 Nasal Parainfluen 3 PCR NOT DETECTED 07/21/21 20:14 Nasal Parainfluen 4 PCR NOT DETECTED 07/21/21 20:14 Nasal RSV (PCR) NOT DETECTED 07/21/21 20:14 Nasal Screen MRSA (PCR) NEGATIVE (NEGATIVE) 07/21/21 23:25 Nasal B.pertussis DNA PCR NOT DETECTED 07/21/21 20:14 Nasal C.pneumoniae (PCR) NOT DETECTED 07/21/21 20:14 Caleb Human Metapneumo PCR NOT DETECTED 07/21/21 20:14 Nasal M.pneumoniae (PCR) NOT DETECTED 07/21/21 20:14 Nasal SARS-CoV-2 (PCR) NOT DETECTED 07/21/21 20:14 Urine Opiates Screen NEGATIVE (NEGATIVE) 07/22/21 01:30 Ur Oxycodone Screen NEGATIVE (NEGATIVE) 07/22/21 01:30 Urine Methadone Screen NEGATIVE (NEGATIVE) 07/22/21 01:30 Ur Propoxyphene Screen NEGATIVE (NEGATIVE) 07/22/21 01:30 Ur Barbiturates Screen NEGATIVE (NEGATIVE) 07/22/21 01:30 Ur Tricyclics Screen NEGATIVE (NEGATIVE) 07/22/21 01:30 Ur Phencyclidine Scrn NEGATIVE (NEGATIVE) 07/22/21 01:30 Ur Amphetamine Screen NEGATIVE (NEGATIVE) 07/22/21 01:30 U Methamphetamines Scrn NEGATIVE (NEGATIVE) 07/22/21 01:30 U Benzodiazepines Scrn POSITIVE (NEGATIVE) H 07/22/21 01:30 Urine Cocaine Screen NEGATIVE (NEGATIVE) 07/22/21 01:30 U Cannabinoids Screen NEGATIVE (NEGATIVE) 07/22/21 01:30 Ethyl Alcohol 142.2 mg/dL 07/21/21 20:05
[2021-07-27] MEDS: metFORMIN 500 MG TABLET PO SCH (17:02)
[2021-07-28] MEDS: SODIUM CHLORIDE FLUSH 0.9% 10 ML SYRINGE IVP SCH ×3 (01:45→16:55)
[2021-07-28 05:29] LABS: BASOPHILS # (AUTO) 0.1 10^3/uL (0.0-0.1); BASOPHILS % (AUTO) 1.2 %; EOSINOPHILS # (AUTO) 0.1 10^3/uL (0.0-0.7); EOSINOPHILS % (AUTO) 1.4 %; HCT - HEMATOCRIT 34.3 % (42.0-52.0); HGB - HEMOGLOBIN 11.7 g/dL (14.0-18.0); LYMPHOCYTES # (AUTO) 1.6 10^3/uL (1.5-3.5); LYMPHOCYTES % (AUTO) 31.6 %; MEAN CORPUSCULAR HGB CONC 34.1 g/dL (32.0-36.0); MEAN CORPUSCULAR VOLUME 93.7 fL (80.0-94.0); MEAN PLATELET VOLUME 8.3 fL (7.4-11.4); MONOCYTES % (AUTO) 19.1 %; NEUTROPHILS # (AUTO) 2.2 10^3/uL (1.5-6.6); NEUTROPHILS % (AUTO) 43.5 %; PLT - PLATELET COUNT 154 10^3/uL (130-450); RED BLOOD COUNT 3.66 10^6/uL (4.70-6.10); WHITE BLOOD COUNT 5.1 x10^3/uL (4.8-10.8)
[2021-07-28 05:36] LABS: CALCIUM 9.2 mg/dL (8.5-10.3); CREATININE 0.7 mg/dL (0.6-1.2); POTASSIUM 4.1 mmol/L (3.5-5.0)
[2021-07-28] MEDS: PANTOPRAZOLE 40 MG TABLET PO SCH (07:06)
--- NOTE | 2021-07-28 07:50 | PROVIDER PROGRESS NOTE ---
Assessment/Plan - Problem List (1) Hyponatremia Assessment/Plan: This was likely hypovolemic hyponatremia secondary to using HCTZ and free water excess. Sodium has improved daily. He wants more water. This suggests he may have had beer potomania We have stopped normal saline and liberalized po total free water per day somewhat and today's sodium dropped slightly, from 132 yesterday to 131 today. 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 (2) Diabetes Mellitus He had not been on a Diabetic diet, since his diet was advanced. He is getting ss Insulin coverage here and his admission H&P states he has Type 2 DM and was on no meds. The A1c at admission was 6.1. Will add Metformin 500 mg po bid We adjust his to a carb-controlled diet starting yesterday. Assess if glu checks are better today, since those 2 changes were made yesterday afternoon. Anticipate DCh poss tomorrow and will not plan Insulin treatment, but Metformin. (3) Alcohol abuse The patient drank about six 16-ounce cans of beer daily. He also drinks about 1/5 of vodka every 2 days. This suggests he may have beer potomania. He himself was looking for inpatient alcohol detox which prompted this visit to the ED and then hospitalization. His ammonia level was normal. He is on daily po Thiamine Unclear how much the years of alcohol abuse has caused poor cognition, but yesterday, he did not know what building this is and he scored 19/30 on a Mini Mental exam. I discussed this with his daughter by phone yesterday and recommended no driving, and I also completed a [facility] driving restriction form that will FAX into DM. (4) Alcohol withdrawal Impression: Resolved. He was on Librium which may have added to the bradykinesis. Yesterday, he did not know what building this is and he scored 19/30 on a Mini Mental exam. Social work will has been discussing further treatment options with him and his daughter Nabila. Qualifiers: Complication of substance-induced condition: with delirium Qualified Code(s): F10.231 - Alcohol dependence with withdrawal delirium (5) Alcoholic hepatitis Impression: His LFTs improved. He is not icteric. We discussed the importance of alcohol cessation and he appears motivated to change this. Qualifiers: Ascites presence: without ascites Qualified Code(s): K70.10 - Alcoholic hepatitis without ascites (6) Thrombocytopenia Impression: This is secondary to his liver disease. There has been no evidence of bleeding. We will continue to monitor CBC. (7) Pancreatitis Impression: This has resolved. His lipase is now within normal limits and he is tolerating a diet. We will advance his diet further. Qualifiers: Chronicity: acute Pancreatitis type: alcohol induced Acute pancreatitis complication: unspecified Qualified Code(s): K85.20 - Alcohol induced acute pancreatitis without necrosis or infection (8) Leukocytosis Impression: This has resolved. This was likely reactive in nature and due to h emoconcentration. (9) Hypokalemia Impression: This has resolved. - Current Meds Current Meds: Current Medications Generic Name Dose Route Start Last Admin Trade Name Freq PRN Reason Stop Dose Admin Allopurinol 100 mg 07/22/21 09:00 07/27/21 09:34 Allopurinol 100 Mg Tablet PO 100 mg DAILY PANTERA Administration Atenolol 50 mg 07/22/21 09:00 07/27/21 09:35 Atenolol 25 Mg Tablet PO 50 mg DAILY PANTERA Administration Calcium Carbonate/Glycine 500 mg 07/22/21 01:03 07/25/21 00:34 Calcium Carbonate Chew 500 Mg Tablet PO 500 mg TID PRN Administration Heartburn Insulin Aspart 3 - 11 unit 07/27/21 17:00 07/27/21 21:17 Insulin Aspart 300 Unit/3 Ml Pen SUBQ 7 unit 0800,1200,1700,2100 PANTERA Administration Protocol Lorazepam 1 mg 07/21/21 22:09 07/23/21 14:55 Lorazepam 2 Mg/Ml Vial IVP 1 mg Q30M PRN Administration CIWA >8 Protocol Metformin HCl 500 mg 07/27/21 17:00 07/27/21 17:02 Metformin 500 Mg Tablet PO 500 mg BIDWM PANTERA Administration Multivitamins/Minerals 1 tab 07/27/21 08:00 07/27/21 09:42 Multivitamin W/Minerals Tablet PO 1 tab DAILYWM PANTERA Administration Pantoprazole Sodium 40 mg 07/26/21 07:00 07/28/21 07:06 Pantoprazole 40 Mg Tablet PO 40 mg QDAC PANTERA Administration Polyethylene Glycol 17 gm 07/26/21 09:00 07/27/21 09:37 Polyethylene Glycol 3350 17 Gm Packet PO 17 gm DAILY PANTERA Administration Sodium Chloride 10 ml 07/22/21 01:00 07/28/21 01:45 Sodium Chloride Flush 0.9% 10 Ml Syringe IVP 10 ml 0100,0900,1700 PANTERA Administration Sodium Chloride 20 ml 07/22/21 22:22 07/26/21 23:54 Sodium Chloride Flush 0.9% 10 Ml Syringe IVP 20 ml PRN PRN Administration After Blood Draw Thiamine HCl 100 mg 07/22/21 09:00 07/27/21 09:33 Thiamine 100 Mg Tablet PO 100 mg DAILY PANTERA Administration - Lab Result Fish Bone Diagrams: 07/28/21 05:08 07/28/21 05:08 - Additional Planning My Orders: My Active Orders 07/27/21 08:00 Multivitamin W/Minerals [Theragran M] 1 tab PO DAILYWM 07/27/21 12:59 Vital Signs [RC] QSHIFT 07/27/21 17:00 Insulin Aspart [NovoLOG] 3 - 11 unit SUBQ 0800,1200,1700,2100 metFORMIN [Glucophage] 500 mg PO BIDWM Subjective - Subjective Patient Reports: Resting Comfortably, Other (Says he feels "so so", is still hoarse) Objective Vital Signs: Vital Signs - 24 hr 07/27/21 07/27/21 07/28/21 11:10 15:38 01:09 Temperature 36.3 C L 37.2 C 36.4 C L Heart Rate [ 76 80 77 Brachial] Respiratory 18 18 18 Rate Blood Pressure 141/63 H 156/76 H 108/81 H [Left Brachial artery] O2 Saturation 100 99 97 Oxygen O2 Source [With Activity] Room air O2 Source Room air I&O (Last 24 Hrs): Intake and Output Totals x24h 07/26/21 07/27/21 07/28/21 23:59 23:59 23:59 Intake Total 1462 1305 300 Output Total 2300 1925 450 Balance -838 -620 -150 General: Alert, No acute distress, Other (Bradykinetic) HEENT: Mucous membr. moist/pink Neck: Supple Neuro: Alert, Non Focal, Other (Bradykinetic) Cardiovascular: Regular rate Respiratory: No respiratory distress Abdomen: Soft Extremities: No clubbing, No edema - Results Results: Laboratory Results WBC 5.1 x10^3/uL (4.8-10.8) 07/28/21 05:08 RBC 3.66 10^6/uL (4.70-6.10) L 07/28/21 05:08 Hgb 11.7 g/dL (14.0-18.0) L 07/28/21 05:08 Hct 34.3 % (42.0-52.0) L 07/28/21 05:08 MCV 93.7 fL (80.0-94.0) 07/28/21 05:08 MCH 32.0 pg (27.0-31.0) H 07/28/21 05:08 MCHC 34.1 g/dL (32.0-36.0) 07/28/21 05:08 RDW 13.0 % (12.0-15.0) 07/28/21 05:08 Plt Count 154 10^3/uL (130-450) 07/28/21 05:08 MPV 8.3 fL (7.4-11.4) 07/28/21 05:08 Neut # (Auto) 2.2 10^3/uL (1.5-6.6) 07/28/21 05:08 Lymph # (Auto) 1.6 10^3/uL (1.5-3.5) 07/28/21 05:08 [place] # (Auto) 1.0 10^3/uL (0.0-1.0) 07/28/21 05:08 Eos # (Auto) 0.1 10^3/uL (0.0-0.7) 07/28/21 05:08 Baso # (Auto) 0.1 10^3/uL (0.0-0.1) 07/28/21 05:08 Absolute Nucleated RBC 0.00 x10^3/uL 07/28/21 05:08 Total Counted 100 07/23/21 04:59 Band Neuts % (Manual) 0 % (0-10) 07/23/21 04:59 Abnorm Lymph % (Manual) 0 % 07/23/21 04:59 Nucleated RBC % 0.0 /100WBC 07/28/21 05:08 Neutrophils # (Manual) 7.9 10^3/uL (1.5-6.6) H 07/23/21 04:59 Lymphocytes # (Manual) 0.9 10^3/uL (1.5-3.5) L 07/23/21 04:59 Monocytes # (Manual) 1.0 10^3/uL (0.0-1.0) 07/23/21 04:59 Eosinophils # (Manual) 0.0 10^3/uL (0-0.7) 07/23/21 04:59 Basophils # (Manual) 0.0 10^3/uL (0-0.1) 07/23/21 04:59 Differential Comment MANUAL DIFFERENTIAL 07/23/21 04:59 Manual Slide Review Indicated 07/22/21 07:21 WBC Morphology NORMAL APPEARANCE (NORMAL) 07/23/21 04:59 Platelet Estimate DECREASED (<130,000) (NORMAL) 07/23/21 04:59 Platelet Morphology NORMAL APPEARANCE (NORMAL) 07/23/21 04:59 RBC Morph Micro Appear NORMAL APPEARANCE (NORMAL) 07/23/21 04:59 PT 12.7 secs (9.9-12.6) H 07/21/21 20:05 INR 1.1 (0.8-1.2) 07/21/21 20:05 VBG pH 7.420 (7.31-7.41) H 07/26/21 05:20 Ionized Calcium 1.18 mmol/L (1.15-1.33) 07/26/21 05:20 Sodium 131 mmol/L (135-145) L 07/28/21 05:08 Potassium 4.1 mmol/L (3.5-5.0) 07/28/21 05:08 Chloride 96 mmol/L (101-111) L 07/28/21 05:08 Carbon Dioxide 26 mmol/L (21-32) 07/28/21 05:08 Anion Gap 9.0 (6-13) 07/28/21 05:08 BUN 14 mg/dL (6-20) 07/28/21 05:08 Creatinine 0.7 mg/dL (0.6-1.2) 07/28/21 05:08 Estimated GFR (MDRD) 113 (>89) 07/28/21 05:08 Glucose 201 mg/dL (70-100) H 07/28/21 05:08 POC Whole Bld Glucose 250 mg/dL (70 - 100) H 07/27/21 21:15 Estimat Average Glucose 128 mg/dL (70-100) H 07/23/21 04:59 Hemoglobin A1c % 6.1 % (4.27-6.07) H 07/23/21 04:59 Lactic Acid 1.5 mmol/L (0.5-2.2) 07/22/21 07:21 Calcium 9.2 mg/dL (8.5-10.3) 07/28/21 05:08 Phosphorus 4.1 mg/dL (2.5-4.6) 07/27/21 05:19 Magnesium 1.9 mg/dL (1.7-2.8) 07/27/21 05:19 Total Bilirubin 1.1 mg/dL (0.2-1.0) H 07/27/21 05:19 Direct Bilirubin 0.5 mg/dL (0.1-0.5) 07/27/21 05:19 AST 56 IU/L (10-42) H 07/27/21 05:19 ALT 56 IU/L (10-60) 07/27/21 05:19 Alkaline Phosphatase 266 IU/L (42-121) H 07/27/21 05:19 Ammonia 14.6 umol/L (7-35) 07/27/21 10:26 Total Protein 6.8 g/dL (6.7-8.2) 07/27/21 05:19 Albumin 2.8 g/dL (3.2-5.5) L 07/27/21 05:19 Globulin 4.0 g/dL (2.1-4.2) 07/27/21 05:19 Albumin/Globulin Ratio 1.0 (1.0-2.2) 07/21/21 22:24 Lipase 117 U/L (22-51) H 07/26/21 05:20 Urine Color DARK YELLOW 07/22/21 01:30 Urine Clarity CLEAR (CLEAR) 07/22/21 01:30 Urine pH 6.0 PH (5.0-7.5) 07/22/21 01:30 Ur Specific [place] >=1.030 (1.002-1.030) H 07/22/21 01:30 Urine Protein TRACE mg/dL (NEGATIVE) 07/22/21 01:30 Urine Glucose (UA) NEGATIVE mg/dL (NEGATIVE) 07/22/21 01:30 Urine Ketones TRACE mg/dL (NEGATIVE) 07/22/21 01:30 Urine Occult Blood TRACE-INTA (NEGATIVE) 07/22/21 01:30 Urine Nitrite NEGATIVE (NEGATIVE) 07/22/21 01:30 Urine Bilirubin NEGATIVE (NEGATIVE) 07/22/21 01:30 Urine Urobilinogen 0.2 (NORMAL) E.U./dL (NORMAL) 07/22/21 01:30 Ur Leukocyte Esterase NEGATIVE (NEGATIVE) 07/22/21 01:30 Urine RBC 0-5 /HPF (0-5) 07/22/21 01:30 Urine WBC 0-3 /HPF (0-3) 07/22/21 01:30 Ur Squamous Epith Cells RARE Squamous (<= Few) 07/22/21 01:30 Urine Bacteria Few /HPF (None Seen) 07/22/21 01:30 Urine Mucus Few Strands 07/22/21 01:30 Urine Osmolality 710 mOsm/kg (50-1200) 07/22/21 01:30 Urine Creatinine 73.2 mg/dL 07/27/21 07:30 Urine Sodium 120.0 mmol/L 07/27/21 07:30 Nasal Adenovirus (PCR) NOT DETECTED 07/21/21 20:14 Nasal B. parapertussis DNA (PCR) NOT DETECTED 07/21/21 20:14 Nasal Coronavir 229E PCR NOT DETECTED 07/21/21 20:14 Nasal Coronavir HKU1 PCR NOT DETECTED 07/21/21 20:14 Nasal Coronavir NL63 PCR NOT DETECTED 07/21/21 20:14 Nasal Coronavir OC43 PCR NOT DETECTED 07/21/21 20:14 Nasal Enterovir/Rhinovir PCR NOT DETECTED 07/21/21 20:14 Nasal Influenza B PCR NOT DETECTED 07/21/21 20:14 Nasal Influenza A PCR NOT DETECTED 07/21/21 20:14 Nasal Parainfluen 1 PCR NOT DETECTED 07/21/21 20:14 Nasal Parainfluen 2 PCR NOT DETECTED 07/21/21 20:14 Nasal Parainfluen 3 PCR NOT DETECTED 07/21/21 20:14 Nasal Parainfluen 4 PCR NOT DETECTED 07/21/21 20:14 Nasal RSV (PCR) NOT DETECTED 07/21/21 20:14 Nasal Screen MRSA (PCR) NEGATIVE (NEGATIVE) 07/21/21 23:25 Nasal B.pertussis DNA PCR NOT DETECTED 07/21/21 20:14 Nasal C.pneumoniae (PCR) NOT DETECTED 07/21/21 20:14 Caleb Human Metapneumo PCR NOT DETECTED 07/21/21 20:14 Nasal M.pneumoniae (PCR) NOT DETECTED 07/21/21 20:14 Nasal SARS-CoV-2 (PCR) NOT DETECTED 07/21/21 20:14 Urine Opiates Screen NEGATIVE (NEGATIVE) 07/22/21 01:30 Ur Oxycodone Screen NEGATIVE (NEGATIVE) 07/22/21 01:30 Urine Methadone Screen NEGATIVE (NEGATIVE) 07/22/21 01:30 Ur Propoxyphene Screen NEGATIVE (NEGATIVE) 07/22/21 01:30 Ur Barbiturates Screen NEGATIVE (NEGATIVE) 07/22/21 01:30 Ur Tricyclics Screen NEGATIVE (NEGATIVE) 07/22/21 01:30 Ur Phencyclidine Scrn NEGATIVE (NEGATIVE) 07/22/21 01:30 Ur Amphetamine Screen NEGATIVE (NEGATIVE) 07/22/21 01:30 U Methamphetamines Scrn NEGATIVE (NEGATIVE) 07/22/21 01:30 U Benzodiazepines Scrn POSITIVE (NEGATIVE) H 07/22/21 01:30 Urine Cocaine Screen NEGATIVE (NEGATIVE) 07/22/21 01:30 U Cannabinoids Screen NEGATIVE (NEGATIVE) 07/22/21 01:30 Ethyl Alcohol 142.2 mg/dL 07/21/21 20:05
[2021-07-28] MEDS: INSULIN ASPART 300 UNIT/3 ML PEN SUBQ SCH ×5 (07:52→21:14)
[2021-07-28] MEDS: metFORMIN 500 MG TABLET PO SCH ×2 (07:53→16:54)
[2021-07-28] MEDS: MULTIVITAMIN W/MINERALS TABLET PO SCH (07:53)
[2021-07-28] MEDS: allopurinoL 100 MG TABLET PO SCH (09:12)
[2021-07-28] MEDS: THIAMINE 100 MG TABLET PO SCH ×2 (09:13→09:23)
[2021-07-28] MEDS: atenoloL 25 MG TABLET PO SCH (09:13)
[2021-07-28] MEDS: SODIUM CHLORIDE FLUSH 0.9% 10 ML SYRINGE IVP PRN (09:15)
[2021-07-28] MEDS: polyethylene glycoL 3350 17 GM PACKET PO SCH (09:24)
[2021-07-29 05:46] LABS: CALCIUM 9.6 mg/dL (8.5-10.3); CREATININE 0.7 mg/dL (0.6-1.2); POTASSIUM 3.8 mmol/L (3.5-5.0)
[2021-07-29] MEDS: SODIUM CHLORIDE FLUSH 0.9% 10 ML SYRINGE IVP SCH ×2 (06:04→08:25)
[2021-07-29] MEDS: PANTOPRAZOLE 40 MG TABLET PO SCH (06:36)
[2021-07-29] MEDS: THIAMINE 100 MG TABLET PO SCH (08:21)
[2021-07-29] MEDS: MULTIVITAMIN W/MINERALS TABLET PO SCH (08:21)
[2021-07-29] MEDS: atenoloL 25 MG TABLET PO SCH (08:24)
[2021-07-29] MEDS: metFORMIN 500 MG TABLET PO SCH (08:25)
[2021-07-29] MEDS: allopurinoL 100 MG TABLET PO SCH (08:26)
[2021-07-29] MEDS: polyethylene glycoL 3350 17 GM PACKET PO SCH (08:26)
[2021-07-29] MEDS: INSULIN ASPART 300 UNIT/3 ML PEN SUBQ SCH ×2 (08:30→11:52)
--- NOTE | 2021-07-29 11:12 | Discharge Plan ---
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 You went through alcohol withdrawal and through alcohol detox here. Please resume all your previous pre-hospital medications EXCEPT STOP THE LISINOPRIL/HCTZ, because your BP is good without it, and it was adding to your dehydration. You are being discharged to take new prescription for diabetes: Metformin twice a day, and there is a new order for lancets and glucose test strips and a new Glucometer, if you need these. A new multi-vitamin with Thiamine has been prescribed. All new prescriptions were electronically sent to the [facility] in [place], because [facility] [place] is closed today. Please stop drinking alcohol. We support your decision to attend inpatient alcohol rehab when you are ready. Because of poor short-term memory, you are restricted from driving a vehicle, unless you are retested. A referral has been sent for Home Health agency to provide you physical therapy (to exercise with you for strengthening), as well as OT and a bath aide if you need these at home. Plan of Treatment: As above. Care Goals: Improvement in symptoms and stabilization are the goals. Assessment: These written instructions are being provided for you as a reminder. Additional Instructions or Follow Up instructions: Please see your PCP in the next 1 to 2 weeks for hospital follow-up visit. You may need adjustment in your Metformin and diabetic management at that office visit. If you have any new or worsening symptoms, call your PCP for advice or come to the ED. No Smoking: If you smoke, Please STOP! Call for help. Follow-up with: JAKUB BAEZ MD [Primary Care Provider] -
--- NOTE | 2021-07-29 11:32 | DISCHARGE SUMMARY ---
Discharge Summary Admit Date: 07/21/21 Discharge Date: 07/29/21 Discharging Provider: Dr Jennifer Jules Primary Care Provider: Dr Phil Rosado Code Status: Attempt Resuscitation Condition at Discharge: Fair Discharge Disposition: [facility] History of Present Illness: From the admission H&P of Dr. Debbi Ferro: Patient is a 66-year-old male with medical history significant for hypertension, GERD, diabetes mellitus not on any medication, proctitis and alcoholism who presented to the ED because he was in need of prescreening prior to going to an inpatient rehabitation facility. He is trying to get into what come inpatient rehab. In the cause of work-up today he had a CBC and CMP done which showed a sodium level of 106 and a chloride level of 67. He also had a lipase level of 600, total bilirubin 4.1, potassium 3.2 and mildly elevated AST/ALT at 320/81. He was mildly tremulous in the ED. As a result of this critical lab findings and his clinical presentation he was presented for admission for further treatment. The patient drinks about six 16-ounce cans of beer daily. He also drinks about 1/5 of vodka every 2 days.He last drank around 1 PM on 07/21/2021. Alcohol level at presentation to the ED was 142.2. Despite this he was still tremulous. He reports experiencing the shakes related to alcohol how are you in the past and offered however he is never experienced seizures as a result of alcohol withdrawal. He has undergone outpatient rehab before in November 2020. At bedside he denies chest pain, dyspnea, fever or chills. He reports mild abdominal pain in the epigastric area. He reported feeling nauseous and rare and self-induced vomiting in an attempt to get some relief. - HOSPITAL COURSE Hospital Course: (1) Hyponatremia This was likely hypovolemic hyponatremia secondary to using HCTZ but with free water excess, possibly beer potomania. He received iv 3% saline in the ICU then NS for several days. His serum Sodium improved very slowly daily. He needed to be on a free-water restriction. He was discharged with advice to stop HCTZ. His urine sodium/creat was 120/7.3, possibly consistent with SIADH. (2) Diabetes Mellitus He had not been on any a Diabetic meds before admission. The A1c at admission was 6.1.Radha his glu ran 200-300 and he needed sliding scale Insulin for coverage. We started and he was discharged on Metformin 500 mg po bid, and advised to resume fingerstick checks and F/U with his PCP. (3) Alcohol abuse The patient reported he drank about six 16-ounce cans of beer daily and about 1/5 of vodka every 2 days. He himself was looking for inpatient alcohol detox w [facility] prompted this visit to the ED and then hospitalization. His ammonia level was normal. He received Banana Bag then oral daily Thiamine. The daughter was planning to take him for Inpatient alcohol rehab, which he wanted. (4) Alcohol withdrawal He was on Librium and a CIWA protocol, of prn Ativa. When these were weaned to off, he had a cognitive eval by OT and he scored 19/30 on a Mini Mental exam. (5) Alcoholic hepatitis The admission CT of abdomen showed hepatic steatosis. His admission bili was 4.1 and AST/ALT was 320/81. His LFTs improved daily and he was not icteric with bili 1.1 at discharge. We discussed the importance of alcohol cessation and he appeared motivated to change this. (6) Encephalopathy He had a head CT with no abnormal findings. Thus, possibly his years of alcohol abuse has caused poor cognition, since he scored 19/30 on a Mini Mental exam. I discussed this with his daughter, an ASSOCIATE PROF[employer], and at discharge recommended no driving for him until retested. I also completed a DMV driving restriction form that SW FAX'd into V. (7) Thrombocytopenia His plt count was 77, at its lowest. This was consistent with his alcoholic liver disease. There was no evidence of bleeding. Plt count at discharge was 154. (8) Pancreatitis The admission Lipase was [address] of abdomen showed peripancreatic inflammation. His lipase returned to normal limits. (9) Hypokalemia This was corrected with iv and po replacement. - ALLERGIES Allergies/Adverse Reactions: Allergies Allergy/AdvReac Type Severity Reaction Status Date / Time No Known Drug Allergies Allergy Verified 07/21/21 19:38 - MEDICATIONS Home Medications: Ambulatory Orders Medication Instructions Recorded Confirmed Atenolol [Tenormin] 50 mg PO DAILY 12/04/20 07/22/21 Atorvastatin [Lipitor] 20 mg PO QPM 05/09/21 12/25/21 allopurinoL [Zyloprim] 100 mg PO DAILY 12/04/20 07/22/21 Omeprazole Magnesium 20 mg PO BIDAC 07/22/21 07/22/21 Blood-Glucose Meter [Glucometer] 1 each DAILY #1 each 07/29/21 Lancets/Blood Glucose Strips [Pogo 1 each DAILY #30 units 07/29/21 Automatic Test Cartridge] Multivitamin W/Minerals [Theragran 1 tab PO DAILYWM #30 tablet 07/29/21 M] metFORMIN [Glucophage] 500 mg PO BIDWM #60 tablet 07/29/21 - PHYSICAL EXAM AT DISCHARGE General Appearance: positive: No acute distress, Alert, Other (Male pattern baldness, long lui, appears older than his age.) Eyes Bilateral: positive: Normal inspection, PERRL, EOMI, Other (no nystagmus) ENT: positive: No signs of dehydration, Other (Hoarseness) Neck: positive: Nml inspection, No JVD Respiratory: positive: No respiratory distress, Breath sounds nml Cardiovascular: positive: Regular rate & rhythm, No murmur Abdomen: positive: Non-tender, Nml bowel sounds Skin: positive: Warm, Dry Extremities: positive: Non-tender, No pedal edema Neurologic/Psychiatric: positive: Oriented x3 (Bradykinetic, no tremor, abnormal gait.) - LABS Result Diagrams: 07/28/21 05:08 07/29/21 05:15 - DIAGNOSTIC IMAGING Diagnostic Imaging Results: Final report reviewed - FOLLOW UP Follow Up: See PCP in 1-3 weeks for a hospital follow-up. - TIME SPENT Time Spent in Discharge (Minutes): 50
--- NOTE | 2021-07-29 12:59 | CT Report ---
PROCEDURE: HEAD WO INDICATIONS: Stroke-like symptoms TECHNIQUE: Noncontrast 4.5 mm thick angled axial sections acquired from the foramen magnum to the vertex. For r adiation dose reduction, the following was used: automated exposure control, adjustment of mA and/or kV according to patient size. COMPARISON: None. FINDINGS: Image quality: Excellent. CSF spaces: Basal cisterns are patent. No extra-axial fluid collections. Ventricles are normal in size and shape. Brain: No midline shift. No intracranial masses or hemorrhage. Fitzpatrick-white matter interface is norm al. Skull and face: Calvarium and visualized facial bones are intact, without suspicious lesions. Sinuses: Visualized sinuses and mastoids are clear. IMPRESSION: 1. No acute intracranial process. Reviewed by: Elenita Galvan MD on 07/29/2021 12:58 PM PST Approved by: Elenita Galvan MD on 07/29/2021 12:58 PM [facility] Station ID: [id number]
[2021-07-29 14:18] VITALS: BP 146/64
== END 2021-07-29 14:45 | disposition home health service (06) | DRG 896 ==
LOC: ED 19:12 → ICU 22:35 → MS2 07-26 14:38
PROVIDERS: ADMIT Internal Medicine; ATTEND Internal Medicine
PROC: 02HV33Z Insertion of Infusion Device into Superior Vena Cava, Percutaneous Approach (ICD-10-PCS; principal; 2021-07-22)
DX: F10.231 Alcohol dependence with withdrawal delirium (principal); K85.20 Alcohol induced acute pancreatitis without necrosis or infection; E87.1 Hypo-osmolality and hyponatremia; F10.221 Alcohol dependence with intoxication delirium; Y90.6 Blood alcohol level of 120-199 mg/100 ml; Z20.822 Contact with and (suspected) exposure to COVID-19; E87.6 Hypokalemia; D72.829 Elevated white blood cell count, unspecified; M10.9 Gout, unspecified; I10 Essential (primary) hypertension; K21.9 Gastro-esophageal reflux disease without esophagitis; Z87.891 Personal history of nicotine dependence; R74.8 Abnormal levels of other serum enzymes; E11.9 Type 2 diabetes mellitus without complications; E78.00 Pure hypercholesterolemia, unspecified; Z79.899 Other long term (current) drug therapy; K70.10 Alcoholic hepatitis without ascites; D69.59 Other secondary thrombocytopenia
CPT/HCPCS: 36415; 70450; 71045; 74177; 80048; 80053; 80076; 80306; 81001; 82140; 82330; 82570; 83036; 83605; 83690; 83735; 83935; 84100; 84300; 85025; 85610; 87150; 87631; 92523; 96361; 96374; 97116; 97161; 97530; 99285; 99291; A9270; G0480; J2060; J7040; Q9967; 0202U; 80320